=== PATIENT | female | born 1965 | race Caucasian/White ===

== ENCOUNTER 2023-04-19 19:09 | Emergency (ER) | payer SELFPAY ==
[2023-04-19 19:11] VITALS: BP 0/0; PULSE 0; RESP 0; TEMP -17.7; TEMP 0; O2SAT 0
== END 2023-04-19 19:12 | disposition left against medical advice (07) ==
LOC: ER 19:11
PROVIDERS: Emergency Provider Emergency Medicine; PCP Nurse Practitioner Family
DX: I49.9 Cardiac arrhythmia, unspecified (principal)

== ENCOUNTER → 2023-07-19 16:36 | Outpatient (CLI) | payer BC, SELFPAY ==
[2023-07-19 17:52] LABS: Free T4 (Free Thyroxine) 0.59 ng/dl (0.78-2.19)
== END ==
PROVIDERS: PCP Nurse Practitioner Family; Visit Provider Otolaryngology
DX: E03.9 Hypothyroidism, unspecified (principal)
CPT/HCPCS: 36415; 84439; 84443

== ENCOUNTER → 2023-08-31 10:40 | Outpatient (CLI) | payer BC, SELFPAY ==
--- NOTE | 2023-08-31 10:41 | US_ITS ---
FINAL REPORT CLINICAL HISTORY: Hypothyroid COMPARISON: None FINDINGS: THYROID ULTRASOUND: The right lobe of the thyroid gland measures 4.4 x 0.8 x 0.6 cm in size. The left lobe of the thyroid gland measures 4.1 x 0.6 x 1 cm in size. Both lobes of the thyroid gland are somewhat small, and also revealed decreased vascularity. This is a nonspecific finding but can be seen with hypothyroidism. No focal masses or nodules are identified. IMPRESSION: Both lobes of thyroid are somewhat small, with decreased vascularity, nonspecific but can be seen with hypothyroidism. No focal nodules or masses are seen. Reviewed, Interpreted and Dictated by Kj Armstrong III, MD Transcribed by Claudia Concepcion Authenticated and . [facility]
[2023-08-31 13:05] LABS: Free T4 (Free Thyroxine) 1.02 ng/dl (0.78-2.19)
[2023-08-31 13:14] LABS: Thyroid Stimulating Hormone 0.67 uIU/mL (0.465-4.68)
== END ==
PROVIDERS: PCP Nurse Practitioner Family; Visit Provider Nurse Practitioner
DX: E03.9 Hypothyroidism, unspecified (principal)
CPT/HCPCS: 36415; 76536; 84439; 84443

== ENCOUNTER 2025-08-01 12:52 | Outpatient (CLI) | payer BC, SELFPAY ==
--- OUTSIDE RECORDS SUMMARY | 2025-07-24 14:21 | XMS_ITS | Clinical Summary ---
Author Organization [facility] Address [address] [place] [id number] Phone Care Team Providers Care Dietetics Director Name Role Phone Tomy Staley Katya Primary Care Provider [phone] Allergies Active Allergy Reactions Criticality Noted Date Comments Hydrocodone Shortness Of Breath 09/17/2017 Cephalexin Diarrhea 09/17/2017 Surgical History Surgery Date Site/Laterality Comments SECTION Medical History Medical History Date Comments Thyroid disease Fibromyalgia Social History Tobacco Use Types Packs/Day Years Used Date Smoking Tobacco: Never Assessed Alcohol Use Standard Drinks/Week Comments Yes 0 (1 standard drink = 0.6 oz pur e alcohol) socially Comments Unknown Sex and Gender Information Value Date Recorded Sex Assigned at Not on file Legal Sex Female 8:35 PM EST Gender Identity Not on file Sexual Orientation Not on file Obstetrics History Last Filed Vital Signs Vital Sign Reading Time Taken Comments Blood Pressure 156/96 09/17/2017 8:39 PM EST Pulse 78 09/17/2017 8:39 PM EST Temperature 36.1 C (97 F) 09/17/2017 8:39 PM EST Respiratory Rate 16 09/17/2017 8:39 PM EST Oxygen Saturation 98% 09/17/2017 9:40 PM EST Inhaled Oxygen Concentration - - Weight 128.9 kg (284 lb 3.2 oz) 09/17/2017 8:39 PM EST Height 165.1 cm (5' 5 ) 09/17/2017 8:39 PM EST Body Mass Index 47.29 09/17/2017 8:39 PM EST Plan of Treatment Health Maintenance Due Date Last Done Comments Annual Wellness Exam 1970 DTaP/TDaP/Td (1 - Tdap) 1986 Hepatitis B Vaccine (1 of 3 - 19+ 3-dose series) 1986 Cervical Cancer Screening 1988 Pap Smear 1988 HPV/Pap Cotest 1997 Breast Cancer Screening 2007 Cologuard 2012 Colon Cancer Screening 2012 Colonoscopy 2012 FIT 2012 Sigmoidoscopy 2012 Virtual Colonography 2012 Pneumococcal Vaccine 50+ (1 of 1 - PCV) 2017 Zoster (1 of 2) 2017 COVID-19 Vaccine (1 - 2023-2 5 season) 2025 Influenza Vaccine (#1) 2025 Meningococcal B Vaccine Aged Out No l onger eligible based on patient's age to complete this topic Insurance [id number] [facility] [place] [id number] [facility] PPO [facility] PPO [employer] GENERIC Care Teams Dietetics Director Relationship Specialty Start Date End Date Tomy Staley [address] [place] [id number] PCP - General Family Medicine 09/17/17
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
--- OUTSIDE RECORDS SUMMARY | 2025-08-01 12:54 | XMS_ITS | Continuity of Care Document ---
Author Organization [place] [facility] Address [address] [place] [address] Care Team Providers Care Meter Calibrator Name Role Phone MYRIAMTHAIS VIEYRA KEVIN Primary Care Provider ANTOINETTE HALL Referring Provider [phone] TAMERA DUARTE Referring Provider Assessment No assessment recorded. Plan of Treatment Reminders Order Date Submit Date Provider Last Modified By Organization Details Last Modified Time Details Appointments Establish ed Patient 20 2024 08:40A M Bindu Pozo, BENJAMIN Not available Not available Not available Lab CBC w/ auto diff 2024 025 [place] [facility], [address], [place], [place], [address], 06/21/2025 08:10:22 Referral None recorded. Procedures None recorded. Surgeries None recorded. Imaging None recorded. Medication Orders None recorded. Patient TargetsNo targets recorded. Patient InstructionsNo instructions recorded. Reason for Referral None Reported. Results Created Date Observation Date Name Description Value Unit Range Abnormal Flag Note LastModifiedBy Organization Detail LastModifiedTime 06/20/2006/21/2025 CBC WITH DIFFE RENTI AL/PL ATELE T WBC 5.3 x10e3 /uL 3.4-10 .8 normal Not Available [facility] ([facility]) [address] [facility], [place], [address], 06/21/2025 08:10:22 06/20/20 25 06/21/2025 CBC WITH DIFFE RENTI AL/PL ATELE T RBC 5.13 x10e6 /uL 3.77-5 .28 normal Not Available [facility] ([facility]) [address] [place], [address], 06/21/2025 08:10:22 06/20/20 25 06/21/2025 CBC WITH DIFFE RENTI AL/PL ATELE T hemoglobin 15.1 g/dL 11.1-1 5.9 normal Not Available [facility] ([facility]) [address] [place], [address], 06/21/2025 08:10:22 06/20/20 25 06/21/2025 CBC WITH DIFFE RENTI AL/PL ATELE T hematocrit 47.0 % 34.0-4 6.6 above high normal Not Available [facility] ([facility]) [address] [place], [address], 06/21/2025 08:10:22 06/20/20 25 06/21/2025 CBC WITH DIFFE RENTI AL/PL ATELE T MCV 92 fL 79-97 normal Not Available [facility] ([facility]) [address] [place], [address], 06/21/2025 08:10:22 06/20/20 25 06/21/2025 CBC WITH DIFFE RENTI AL/PL ATELE T MCH 29.4 pg 26.6-3 3.0 normal Not Available [facility] ([facility]) [address] [place], [address], 06/21/2025 08:10:22 06/20/20 25 06/21/2025 CBC WITH DIFFE RENTI AL/PL ATELE T MCHC 32.1 g/dL 31.5-3 5.7 normal Not Available [facility] ([facility]) [address] [place], [address], 06/21/2025 08:10:22 06/20/20 25 06/21/2025 CBC WITH DIFFE RENTI AL/PL ATELE T RDW 13.9 % 11.7-1 5.4 Not Available [facility] ([facility]) [address] [facility], [place], [address], 06/21/2025 08:10:22 06/20/20 25 06/21/2025 CBC WITH DIFFE RENTI AL/PL ATELE T platelets 209 x10e3 /uL 150-45 0 normal Not Available [facility] ([facility]) [address] [facility], [place], [address], 06/21/2025 08:10:22 06/20/20 25 06/21/2025 CBC WITH DIFFE RENTI AL/PL ATELE T neutrophils 78 % not estab. normal Not Available [facility] ([facility]) [address] [facility], [place], [address], 06/21/2025 08:10:22 06/20/20 25 06/21/2025 CBC WITH DIFFE RENTI AL/PL ATELE T lymphs 13 % not estab. normal Not Available [facility] ([facility]) [address] [facility], [place], [address], 06/21/2025 08:10:22 06/20/20 25 06/21/2025 CBC WITH DIFFE RENTI AL/PL ATELE T monocytes 6 % not estab. normal Not Available [facility] ([facility]) [address] [facility], [place], [address], 06/21/2025 08:10:22 06/20/20 25 06/21/2025 CBC WITH DIFFE RENTI AL/PL ATELE T eos 2 % not estab. normal Not Available [facility] ([facility]) [address] [facility], [place], [address], 06/21/2025 08:10:22 06/20/20 25 06/21/2025 CBC WITH DIFFE RENTI AL/PL ATELE T basos 1 % not estab. normal Not Available [facility] ([facility]) [address] [facility], [place], [address], 06/21/2025 08:10:22 06/20/20 25 06/21/2025 CBC WITH DIFFE RENTI AL/PL ATELE T immature cells [employer] Not Available [facility] ([facility]) [address] [facility], [place], [address], 06/21/2025 08:10:22 06/20/20 25 06/21/2025 CBC WITH DIFFE RENTI AL/PL ATELE T neutrophils (absolute) 4.2 x10e3 /uL 1.4-7. 0 normal Not Available [facility] ([facility]) [address] [facility], [place], [address], 06/21/2025 08:10:22 06/20/20 25 06/21/2025 CBC WITH DIFFE RENTI AL/PL ATELE T lymphs (absolute) 0.7 x10e3 /uL 0.7-3. 1 normal Not Available [facility] ([facility]) [address] [place], [address], 06/21/2025 08:10:22 06/20/20 25 06/21/2025 CBC WITH DIFFE RENTI AL/PL ATELE T monocytes(ab solute) 0.3 x10e3 /uL 0.1-0. 9 normal Not Available [facility] ([facility]) [address] [place], [address], 06/21/2025 08:10:22 06/20/20 25 06/21/2025 CBC WITH DIFFE RENTI AL/PL ATELE T eos (absolute) 0.1 x10e3 /uL 0.0-0. 4 normal Not Available [facility] ([facility]) [address] [place], [address], 06/21/2025 08:10:22 06/20/20 25 06/21/2025 CBC WITH DIFFE RENTI AL/PL ATELE T baso (absolute) 0.0 x10e3 /uL 0.0-0. 2 normal Not Available [facility] ([facility]) [address] [facility], [place], [address], 06/21/2025 08:10:22 06/20/20 25 06/21/2025 CBC WITH DIFFE RENTI AL/PL ATELE T immature granulocytes 0 % not estab. Not Available [facility] ([facility]) [address] [facility], [place], [address], 06/21/2025 08:10:22 06/20/20 25 06/21/2025 CBC WITH DIFFE RENTI AL/PL ATELE T immature grans (abs) 0.0 x10e3 /uL 0.0-0. 1 Not Available [facility] ([facility]) [address] [facility], [place], [address], 06/21/2025 08:10:22 06/20/20 25 06/21/2025 CBC WITH DIFFE RENTI AL/PL ATELE T NRBC [employer] Not Available [facility] ([facility]) [address] [facility], [place], [address], 06/21/2025 08:10:22 06/20/20 25 06/21/2025 CBC WITH DIFFE RENTI AL/PL ATELE T hematology comments: [employer] Not Available [facility] ([facility]) [address] [place], [address], 06/21/2025 08:10:22 Result Notes None recorded. Problems Name Problem SNOMED Code Status Onset Date Resolution Date Notes Provider Name and Address Organization Details Recorded Time Hyperlipi demia 59335181 Active Maribel Sorto null, [place] - [facility] 3 16:18:08 Mass of left ovary 734082172122 47496 Active Maribel Sorto null, [place] - [facility] 3 16:18:08 Bradycard ia 81864220 Active Maribel Sorto null, [place] - [facility] 3 16:18:08 Fatigue 18352576 Active Maribel monae, [place] - [facility] 3 16:18:09 Hypothyro idism 97534110 Active 2015 Maribel monae, [place] - [facility] 3 16:18:08 Fibromyal lottie 178986485 Active 2015 Maribel monae, [place] - [facility] 3 16:18:08 Colitis 28976745 Active 2015 Maribel monae, [place] - [facility] 3 16:18:09 Chronic back pain 381699171 Active 2015 Maribel monae, [place] - [facility] 3 16:18:08 Pain of hip region 87364919 Active 2015 Maribel monae, [place] - [facility] 3 16:18:08 Pelvic mass 53019014 Active 2017 Maribel monae, [place] - [facility] 3 16:18:09 Granuloma annulare 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 2019 Maribel monae, [place] - [facility] 3 16:18:09 Herpes simplex 40022201 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 per culture GRAEME Jacobson - [facility] 3 16:18:09 Acquired hypothyro idism 499906547 Active 2020 GRAEME Jacobson - [facility] 3 16:18:08 Vitamin D deficienc y 91686953 Active 2020 Maribel monae, [place] - [facility] 3 16:18:08 Mixed hyperlipi demia 466706355 Active 2020 Maribel monae, [place] - [facility] 3 16:18:08 Gastroeso phageal reflux disease without esophagit is 553573354 Active 2020 GRAEME Jacobson - [facility] 3 16:18:08 History of bariatric surgical procedure 696390532 Active 2022 GRAEME Jacobson - [facility] 3 16:18:09 Problem Notes None recorded. Procedures Surgical History Date Name Laterality Status Provider Name and Address Organization Details Recorded Time 024 Date of Last Mammogram completed Smita Boswell [place] - [facility] 08/01/2025 08:47:51 023 Medication Reconcilliation completed Maribel Sorto [place] - [facility] 04/26/2023 16:16:53 021 Date of Last Colonoscopy completed Kay lUloa RN [address], [place], [address], [place] - [facility] 02/27/2021 11:38:04 021 Diastolic B/P 80-89 mm Hg completed Mally Garcia [place] - [facility] 12/24/2020 13:04:11 021 Systolic B/P 130-139 mm Hg completed Mally Garcia [place] - [facility] 12/24/2020 13:04:05 021 Diastolic B/P 80-89 mm Hg completed Gretchen Chery APRN [address], [place], [address], [place] - [facility] 11/04/2020 11:37:37 021 Systolic B/P 130-139 mm Hg completed Gretchen Chery APRN [address], [place], [address], [place] - [facility] 11/04/2020 11:37:32 021 Date of Last Pap Smear completed Gretchen Chery APRN [address], [place], [address], [place] - [facility] 11/07/2020 08:23:07 020 Systolic B/P less than 130 mm Hg completed Mally Garcia [place] - [facility] 09/03/2020 17:53:00 020 Diastolic B/P less than 80 mm Hg completed Mally Garcia [place] - [facility] 09/03/2020 17:52:56 020 Systolic B/P less than 130 mm Hg completed Mally Garcia [place] [facility] 06/04/2020 14:48:51 020 Diastolic B/P less than 80 mm Hg completed Mally Garcia [place] [facility] 06/04/2020 14:48:49 018 Diagnostic Laparoscopy completed Elena Castro [place] - [facility] 03/08/2018 13:43:58 018 Salpingo-oophorecto my, Left completed Elena BEDOLLA - [facility] 03/08/2018 13:44:06 996 delivery only completed Amanda BEDLOLA [facility] 11/04/2020 09:15:51 988 Caesarean Section completed Amanda [facility] 11/04/2020 09:15:38 Tubal Ligation completed Amanda BEDOLLA [facility] 11/04/2020 09:14:53 Dilation and Curettage, sharp completed Smita Abramss [place] - [facility] 01/04/2018 12:55:06 Endoscopy completed Smita Abramss [place] - [facility] 01/04/2018 12:55:21 Bartholin Gland Marsupialization completed Smita [place] - [facility] 01/04/2018 12:55:30 Colonoscopy completed Elena BEDOLLA [facility] 01/04/2018 13:56:42 Imaging Results None recorded. Procedure Notes None recorded. Medical Equipment None Reported. Allergies Allergen ID Allergen Name Allergen Category Reaction Reaction Severity Criticality Documentation Date Start Date Code Code System Note Provider Name and Address Organization Details Recorded Time 480821 acetamino phen medicatio n Not available Not available Not available 02/27/20212020 161 RxNorm unkno wn Mally [place] null[place] - [facility] 15:57:19 345715 cephalexi n medicatio n rash mild Not available 02/27/20212022 2231 RxNorm Maribel Sorto [place] - [facility] 3 16:17:50 421625 oxycodone medicatio n Not available Not available Not available 02/27/20212022 7804 RxNorm Maribel Sort[place] - [facility] 3 16:17:50 887653 hydrocodo ne Not available Not available Not available Not available 04/26/20232022 5489 RxNorm Maribel [place] - [facility] 3 16:17:50 611665 propofol medicatio n Not available Not available Not available 04/26/20233 8782 RxNorm Maribel Sorto null, [place] - [facility] 3 16:17:50 96066 Keflex medicatio n Not available Not available Not available 08/06/2016200816 7 RxNorm React ion: rash, diarr hea; Not Available [facility] 6 09:12:29 20676 acetamino phen / oxycodone medicatio n Not available Not available Not available 08/06/2016201318 3 RxNorm React ion: incre ase in B/P diffi culty breat elizabeth; Comme nt: OnSet Date: 04/19 00; Not Available [facility] 6 09:31:51 16426 homatropi ne / hydrocodo ne medicatio n respirato ry distress Not available Not available 08/06/20162014 51507 4 RxNorm Not Available [facility] 6 10:03:41 07564 acetamino phen / hydrocodo ne medicatio n respirato ry distress Not available Not available 08/06/2016201418 2 RxNorm Not Available [facility] 6 10:03:41 Medications Name Sig Start Date Stop Date Status Note LastModified by Organization Details LastModified Time Prescript ion - Change active Not Available Not Available Not Available cyclobenz aprine 10 mg tablet Take 1 tablet 3 times a day by oral route. 10/20 completed Not Available Not Available Not Available amoxicill in 500 mg capsule TAKE ONE (1) CAPSULE TWICE A DAY BY ORAL ROUTE FOR 10 DAYS. 04/19 completed Not Available Not Available Not Available [place] Thyroid 60 mg tablet TAKE ONE (1) TABLET BY ORAL ROUTE DAILY FOR 30 DAYS 02/01 completed Not Available Not Available Not Available levothyro xine 137 mcg tablet 0.137 mg by oral route. 02/23 completed Not Available Not Available Not Available [place] Thyroid 90 mg tablet TAKE ONE (1) TABLET BY ORAL ROUTE DAILY FOR 30 DAYS 12/09 completed Not Available Not Available Not Available loperamid e 2 mg capsule take 2 capsules (4 mg) by oral route after 1st loose stool, followed by 1 capsule after each subseque nt loose stool not to exceed 16 mg/day 10/20 completed loperami de 2 mg oral capsule; Recorded Status: Recorded on: 08/20/20 15 1:12PM;U ser: [email or web address] Not Available Not Available Not Available azithromy mak 250 mg tablet TAKE TWO (2) TABLETS (500 MG) BY ORAL ROUTE ONCE DAILY FOR ONE (1) DAY THEN ONE (1) TABLET (250 MG) BY ORAL ROUTE ONCE DAILY FOR FOUR (4) DAYS 12/09 completed Not Available Not Available Not Available ibuprofen 800 mg tablet 09/16 completed Not Available Not Available Not Available valacyclo vir 1 gram tablet Take 1 tablet every 12 hours by oral route for 10 days. 06/02 completed Not Available Not Available Not Available Lotrisone 1 %-0.05 % topical cream apply to the affected and surround ing areas of skin by topical route 2 times per day in the morning and evening for 14 days 01/10 completed Lotrison e 1-0.05 % topical cream;Re corded Status: Recorded on: 11/10/19 13 4:18PM;D iscontin ued Status: Disconti nued on: 01/11/20 13 2:40PM;U ser: [email or web address] ;Est. Adairi on: 02/03/20 13;Print ed: 11/10/19 13 Not Available Not Available Not Available prednison e 20 mg tablet take 2 tablets (40 mg) by oral route once daily for 5 days 09/02 completed Not Available Not Available Not Available Synthroid 100 mcg tablet TAKE ONE (1) TABLET EVERY DAY BY ORAL ROUTE. active Not Available Not Available No t Available [place] Thyroid 120 mg tablet TAKE ONE (1) TABLET BY MOUTH EVERY DAY 11/19 completed Not Available Not Available Not Available Wellbutri n SR 150 mg tablet, 12 hr sustained -release take 1 tablet (150 mg) by oral route 2 times per day for 30 days 01/10 completed Wellbutr in SR 150 mg oral tablet extended release; Recorded Status: Recorded on: 12/21/19 13 9:56AM;D iscontin ued Status: Disconti nued on: 01/11/20 13 2:40PM;U ser: [email or web address];E st. Completi on: 06/19/20 13;Indic ation: Tobacco Addictio n - (305.1); Printed: 12/21/19 13 Not Available Not Available Not Available phentermi ne 37.5 mg tablet Take 1 tablet every day by oral route. 2024 active Not Available Not Available Not Avai lable acetamino phen 300 mg-codein e 30 mg tablet 09/16 completed Not Available Not Available Not Available sulfameth oxazole 800 mg-trimet hoprim 160 mg tablet take 1 tablet by oral route every 12 hours for 7 days 09/02 completed Not Available Not Available Not Available omeprazol e 40 mg capsule,d elayed release take 1 capsule by oral route daily for 90 days 09/03 completed Not Available Not Available Not Available tramadol 50 mg tablet 50 mg by oral route. 02/23 completed Not Available Not Available Not Available Cytomel 5 mcg tablet take 2 tablets (10 mcg) by oral route once daily for 30 days 09/17 completed Cytomel 5 mcg oral tablet;P rescribe Status: Prescrib ed on: 06/12/20 14 4:44PM;D iscontin ued Status: Disconti nued on: 09/17/20 14 12:26PM; User: otilia Cardona Completpatricia on: 12/09/19 15;Pharm acyVjackeline ied: 06/12/20 14 4:44PM Not Available Not Available Not Available amoxicill in 500 mg tablet take 4 tablets (2 gram) by oral route 1 hour prior to procedur e 02/10 completed amoxicil rosio 500 mg oral tablet;P rescribe Status: Prescrib ed on: 12/16/19 16 11:32AM; Disconti nued Status: Disconti nued on: 02/11/20 16 1:02PM;U ser: [email or web address]; Pharmacy Verified : 12/16/19 16 11:32AM Not Available Not Available Not Available acyclovir 800 mg tablet 06/21 completed Not Available Not Available Not Available calcium 315 mg (as citrate)- ergocalci ferol (vit D2) 200 unit tablet 04/02 /2024 completed Not Available Not Available Not Available meloxicam 7.5 mg tablet Take 1 tablet every day by oral route. 10/20 completed Not Available Not Available Not Available IBU 600 mg tablet 03/20 completed Not Available Not Available Not Available Silvadene 1 % topical cream apply a 1/16 inch (1.5 mm) thick layer to entire burn area by topical route 2 times per day for 14 days 08/20 completed Silvaden e 1 % topical cream;Pr escribe Status: Prescrib ed on: 04/30/20 15 3:02PM;D iscontin ued Status: Disconti nued on: 08/20/20 15 1:12PM;U ser: [email or web address]; Est. Completi on: 05/14/20 15;Indic ation: Burn Wound Infectio ns - (17.9583 01);Verenice Méndez fied: 04/30/20 15 3:02PM Not Available Not Available Not Available dicyclomi ne 20 mg tablet bid 09/14 completed Not Available Not Available Not Available benzonata te 100 mg capsule Take 1 capsule 3 times a day by oral route as needed. 12/01 completed Not Available Not Available Not Available pantopraz ole 40 mg tablet,de layed release 10/20 completed Not Available Not Available Not Available oseltamiv ir 75 mg capsule Take 1 capsule every day by oral route. 11/24 completed Not Available Not Available Not Available Prozac 20 mg capsule take 1 capsule (20 mg) by oral route once daily for 30 days 08/09 completed Prozac 20 mg oral capsule; Recorded Status: Recorded on: 05/18/20 12 3:59PM;D iscontin ued Status: Disconti nued on: 08/09/20 12 3:41PM;U ser: grossert ;Est. Completi on: 11/14/19 13;Indic ation: Symptoma tic [place] - (627.2); Printed: 05/18/20 12 Not Available Not Available Not Available levothyro xine 125 mcg tablet take 1 tablet (125 mcg) by oral route once daily for 30 days 10/14 completed levothyr oxine 125 mcg oral tablet;P rescribe Status: Prescrib ed on: 08/25/20 15 5:33PM;D iscontin ued Status: Disconti nued on: 10/14/20 15 1:34PM;U ser: [email or web address]; Est. Completi on: 11/23/19 16;Pharm acyVjackeline ied: 08/25/20 15 5:33PM Not Available Not Available Not Available levothyro xine 150 mcg tablet take 1 tablet (150 mcg) by oral route once daily for 30 days 09/02 completed Not Available Not Available Not Available nitroglyc amy 0.4 mg sublingua l tablet Place 1 tablet as needed by sublingu al route. 12/09 completed Not Available Not Available Not Available gabapenti n 300 mg capsule TAKE ONE CAPSULE BY MOUTH THREE TIMES A DAY 11/18 completed Not Available Not Available Not Available omeprazol e 20 mg capsule,d elayed release 20 mg by oral route. 04/20 completed Not Available Not Available Not Available diclofena c sodium 75 mg tablet,de layed release take 1 tablet (75 mg) by oral route 2 times per day for 30 days 06/02 completed Not Available Not Available Not Available levothyro xine 200 mcg tablet TAKE 1 TABLET BY MOUTH EVERY DAY 09/16 completed Not Available Not Available Not Available hydrochlo rothiazid e 25 mg tablet Take 1 tablet every day by oral route. 12/21 completed Not Available Not Available Not Available thyroid 120 mg tablet Take 90 mg by oral route. 04/26 completed Not Available Not Available Not Available John Thyroid 30 mg tablet TAKE ONE (1) TABLET EVERY DAY BY ORAL ROUTE. 08/09 completed Not Available Not Available Not Available gabapenti n 100 mg capsule 100 mg by oral route. 02/23 completed Not Available Not Available Not Available clobetaso l 0.05 % topical ointment APPLY TO AFFECTED AREA A THIN LAYER TWICE DAILY FOR 14 DAYS 09/16 completed Not Available Not Available Not Available lotepredn ol etabonate 0.5 % eye drops,lissa penon 01/04 completed Not Available Not Available Not Available methylpre dnisolone 4 mg tablets in a dose pack take as directed for 10 days 12/01 completed Not Available Not Available Not Available albuterol sulfate HFA 90 mcg/actua tion aerosol inhaler inhale 2 puffs by inhalati on route every 4 hours as needed 09/16 completed Not Available Not Available Not Available Vitamin D2 1,250 mcg (50,000 unit) capsule Take 1 capsule every day by oral route. 12/09 completed Not Available Not Available Not Available celecoxib 100 mg capsule 11/18 completed Not Available Not Available Not Available ondansetr on 4 mg disintegr ating tablet PLACE ONE (1) TABLET ON TOP OF THE TOUNGE EVERY 4-6 HOURS FOR 10 DAYS 12/09 completed Not Available Not Available Not Available topiramat e 100 mg tablet TAKE ONE (1) TABLET BY MOUTH TWICE DAILY active Not Available Not Available No t Available dexametha sone sodium phosphate 10 mg/mL injection solution Take 10 mg by injectio n route. 12/09 completed Not Available Not Available Not Available fluticaso ne propionat e 50 mcg/actua tion nasal spray,lissa pension INSTILL ONE (1) SPRAY IN EACH NOSTRIL DAILY 12/09 completed Not Available Not Available Not Available naproxen 500 mg tablet Take 1 tablet twice a day by oral route. 10/20 completed Not Available Not Available Not Available amoxicill in 875 mg-potass ium clavulana te 125 mg tablet take 1 tablet by oral route every 12 hours for 10 days 09/02 completed Not Available Not Available Not Available neomycin- polymyxin -hydrocor t 3.5 mg-10,000 unit/mL-1 % ear drops,lissa p INSTILL 4 DROPS INTO AFFECTED EAR(S) BY OTIC ROUTE 3 TIMES PER DAY 10/07 completed Not Available Not Available Not Available Adult Low Dose Aspirin 81 mg tablet,de layed release Take 1 tablet every day by oral route. 12/09 completed Not Available Not Available Not Available moxifloxa mak 0.5 % eye drops 01/04 completed Not Available Not Available Not Available Premarin 0.625 mg/gram vaginal cream INSERT 0.25 APPLICAT ORFUL VAGINALL Y TWICE WEEKLY AT BEDTIME 09/16 completed Not Available Not Available Not Available Ciprodex 0.3 %-0.1 % ear drops,lissa najera instill 4 drops into right ear by otic route every 12 hours for 7 days 03/14 completed Not Available Not Available Not Available rosuvasta tin 5 mg tablet Take 5 mg by oral route. 12/09 completed Not Available Not Available Not Available rosuvasta tin 10 mg tablet Take 1 tablet every day by oral route as directed for 30 days. 08/01 completed she never started it Not Available Not Available Not Available Wellbutri n XL 300 mg 24 hr tablet, extended release take 1/2 tablet daily for one week, then increase to 1 tablet (300 mg) by oral route once daily 08/14 completed Wellbutr in XL 300 mg oral tablet extended release 24 hr;comme nt: pt couldn't afford it;[facility] ribe Status: Prescrib ed on: 08/01/20 13 2:36PM;D iscontin ued Status: Disconti nued on: 08/14/20 13 5:38PM;U ser: [email or web address]; Est. Completi on: 01/29/20 14;Indic ation: Major Depressi ve Disorder - (05.2962 00);Verenice Méndez fied: 08/01/20 13 2:36PM Not Available Not Available Not Available topiramat e 50 mg tablet take 1 tablet by oral route 2 times a day 08/13 completed topirama te 50 mg oral tablet;R ecorded Status: Recorded on: 03/25/20 11 6:04PM;D iscontin ued Status: Disconti nued on: 08/13/20 11 3:32PM;U ser: [email or web address] Not Available Not Available Not Available Zantac once daily 03/05 completed zantac;c omment: medicati on changed; Recorded Status: Recorded on: 12/24/19 15 12:52PM; Disconti nued Status: Disconti nued on: 03/05/20 15 10:17AM; User: [email or web address]; Indicati on: - (-5) Not Available Not Available Not Available Tylenol as needed 09/16 completed Not Available Not Available Not Available multivita min 1 daily active Not Available Not Available Not Available cholecalc iferol (vitamin D3) 25 mcg (1,000 unit) tablet 04/20 completed Not Available Not Available Not Available Savella 50 mg tablet take 1 tablet (50 mg) by oral route 2 times per day for 30 days 09/11 completed Savella 50 mg oral tablet;P rescribe Status: Prescrib ed on: 06/12/20 14 4:44PM;D iscontin ued Status: Disconti nued on: 09/11/20 14 4:21PM;U ser: [email or web address]; Est. Completi on: 12/09/19 15;Indic ation: Fibromya lgia - (13.7291 02);Phar Nikolaieri fied: 06/12/20 14 4:44PM Not Available Not Available Not Available levothyro xine 137 mcg capsule Take 1 capsule every day by oral route. 10/20 completed Not Available Not Available Not Available Dexilant 60 mg capsule, delayed release Take 1 capsule every day by oral route for 90 days. 10/07 completed Not Available Not Available Not Available Suprep Bowel Prep Kit 17.5 gram-3.13 gram-1.6 gram oral solution 09/16 completed Not Available Not Available Not Available antipyrin e-benzoca ine 5.5 %-1.4 % ear drops instill into right ear by otic route 3 times per day as needed, enough drops to fill ear canal 08/14 completed antipyri ne-benzo narda 5.5-1.4 % otic drops;Pr escribe Status: Prescrib ed on: 08/02/20 13 4:01PM;D iscontin ued Status: Disconti nued on: 08/14/20 13 5:35PM;U ser: strouba; Indicati on: Right Otitis Externa, Acute - (380.22) ;Pharmac yVerifie d: 08/02/20 13 4:01PM Not Available Not Available Not Available lidocaine 5 % topical ointment APPLY TO AFFECTED AREA(S) BY TOPICAL ROUTE 1-4 TIMES DAILY NEEDED 06/02 completed Not Available Not Available Not Available topiramat e XR 100 mg capsule,e xtended release 24 hr 100 mg by oral route. 02/23 completed Not Available Not Available Not Available Contrave 8 mg-90 mg tablet,ex tended release Take 2 tablets twice a day by oral route for 30 days. 06/21 completed Not Available Not Available Not Available Trulicity 1.5 mg/0.5 mL subcutane ous pen injector 09/16 completed Not Available Not Available Not Available Trulicity 0.75 mg/0.5 mL subcutane ous pen injector Inject by subcutan eous route for 28 days. 09/16 completed Not Available Not Available Not Available Saxenda 3 mg/0.5 mL (18 mg/3 mL) subcutane ous pen injector Inject 3 mg every day by subcutan eous route. 12/01 completed Not Available Not Available Not Available Caltrate with Vitamin D3 400mg daily active Not Available Not Available No t Available Fiber Gummies 2 gram chewable tablet Take 1 tablet every day by oral route. active Not Available Not Available No t Available Durolane 60 mg/3 mL intra-art icular syringe 06/02 completed Not Available Not Available Not Available Rybelsus 3 mg tablet 12/09 completed Not Available Not Available Not Available Wegovy 0.25 mg/0.5 mL subcutane ous pen injector Inject 0.25 mg every week by subcutan eous route. active Not Available Not Available No t Available Wegovy 0.5 mg/0.5 mL subcutane ous pen injector Inject 0.5 mg every week by subcutan eous route. 2024 active Not Available Not Available Not Avai lable Mounjaro 5 mg/0.5 mL subcutane ous pen injector active Not Available Not Available Not Available Mounjaro 10 mg/0.5 mL subcutane ous pen injector 09/16 completed Not Available Not Available Not Available Mounjaro 2.5 mg/0.5 mL subcutane ous pen injector Inject 2.5 mg every week by subcutan eous route. 08/02 completed Not Available Not Available Not Available Zepbound 10 mg/0.5 mL subcutane ous pen injector Inject 10 mg every week by subcutan eous route. 11/02 completed Not Available Not Available Not Available Zepbound 5 mg/0.5 mL subcutane ous pen injector Inject 5 mg every week by subcutan eous route. 05/17 completed Not Available Not Available Not Available Zepbound 2.5 mg/0.5 mL subcutane ous pen injector INJECT 2.5MG EVERY WEEK BY SUBCUTAN EOUS ROUTE FOR 30 DAYS. 05/17 completed Not Available Not Available Not Available Zepbound 15 mg/0.5 mL subcutane ous pen injector INJECT 15MG EVERY WEEK BY SUBCUTAN EOUS ROUTE. 06/20 completed Not Available Not Available Not Available Zepbound 12.5 mg/0.5 mL subcutane ous pen injector INJECT 12.5 MG EVERY WEEK BY SUBCUTAN EOUS ROUTE. 11/02 completed Not Available Not Available Not Available Zepbound 7.5 mg/0.5 mL subcutane ous pen injector INJECT 7.5 MG EVERY WEEK BY SUBCUTAN EOUS ROUTE. 11/02 completed Not Available Not Available Not Available Vitals Date Recorded Body height Body mass index (BMI) Body weight Pain severity - 0-10 verbal numeric rating [Score] - Reported Heart rate Body temperature Oxygen saturation Oxygen saturation in Arterial blood by Pulse oximetry Respiratory rate Systolic And Diastolic Provider Name and Address Organization Details Last Updated DateTime 5 165.1 cm 32.8 kg/m2 38358.7 g 0 66 /min 98.1 [degF] 98 % 98 % 18 /min 122/78 mm[Hg] Maribel Sorto [place] - [facility] 09:12:52 Social History Question Answer Notes LastModified by Organizat ion Details LastModified Time Tobacco Smoking Status Former Smoker Not Available [facility] 08/15/2020 03:17:09 Able To Swim? Yes Information not available 09/02/2016 Do You Have An Advance Directive? No [id number] Information n ot available 08/15/2020 Do You Wear A Helmet When Biking? No [id number] Information not available 08/15/2020 Are You Blind Or Do You Have Difficulty Seeing? No [id number] Information n ot available 08/15/2020 Is Blood Transfusion Acceptable In An Emergency? Yes [id number] Information not available 08/15/2020 What Is Your Level Of Caffeine Consumption? Moderate [id number] Information not available 08/15/2020 How Much Tobacco Do You Chew? None [id number] Information not available 08/15/2020 In The 14 Days Before Symptom Onset, Have You Had Close Contact With A Laboratory-confirm ed COVID-19 While That Case Was Ill? No Information n ot available 06/20/2025 In The 14 Days Before Symptom Onset, Have You Had Close Contact With A Person Who Is Under Investigation For COVID-19 While That Person Was Ill? No Information not available 06/20/2025 Have You Been To An Area Known To Be High Risk For COVID-19? No Information not available 06/20/2025 Are You Deaf Or Do You Have Serious Difficulty Hearing? No [id number] Information not available 08/15/2020 What Type Of Diet Are You Following? REGULAR [id number] Information n ot available 08/15/2020 Which Illicit Or Recreational Drugs Have You Used? None [id number] Information not available 08/15/2020 Have You Processed Blood Or Body Fluids From An Ebola Virus Disease Patient Without Appropriate PPE? No Information not available 06/20/2025 Do You Reside In Or Have You Traveled To An Area Where Ebola Virus Transmission Is Active? No Information not available 06/20/2025 What Is The Highest Grade Or Level Of School You Have Completed Or The Highest Degree You Have Received? [id number] Information not available 11/04/2020 How Many Days Of Moderate To Strenuous Exercise, Like A Brisk Walk, Did You Do In The Last 7 Days? 0 Information not available 11/04/2020 On Those Days That You Engage In Moderate To Strenuous Exercise, How Many Minutes, On Average, Do You Exercise? 0 Information not available 11/04/2020 Swimming/diving Yes [email or web address] Informati on not available 12/09/2016 Have There Been Any Changes To Your Family Or Social Situation? No Information no t available 12/09/2023 How Hard Is It For You To Pay For The Very Basics Like Food, Housing, Medical Care, And Heating? [id number] [email or web address] Information not available 11/04/2020 What Is The Fluoride Status Of Your Home? Unknown Information not available 12/09/2023 When Did You Quit Smoking? 1-5yearssince lastcigarette [id number] Information not available 08/15/2020 Hard Of Hearing Or Deaf In One Or Both Ears? No Information not available 09/02/2016 Have You Recently Or Are You Planning To Travel To An Area With Zika Virus? No Information not available 06/20/2025 Legally Blind In One Or Both Eyes? No Information no t available 09/02/2016 Live Alone Or With Others? With Others Information not available 09/02/2016 Do You Have A Medical Power Of Plant Clerk? No Information not available 12/09/2023 What Was The Date Of Your Most Recent Tobacco Screening? 06/20/2025 Information not available 06/20/2025 How Many Children Do You Have? 2 [id number] Information not available 08/15/2020 Performs Monthly Self-breast Exam? No [email or web address] Information no t available 01/04/2018 Do You Use Protection During Sex? No [id number] Information not available 08/15/2020 What Is Your Relationship Status? [id number] Information not available 08/15/2020 Seat Belts Used Routinely Yes Information not available 09/02/2016 Are You Sexually Active? Yes [id number] Information not available 08/15/2020 Smoke Alarm In Home Yes Information not available 09/02/2016 Do You Have Smoke And Carbon Monoxide Detectors In Your Home? Yes Information not available 12/09/2023 At What Age Did You Start Smoking Tobacco? 23 [id number] Information not available 08/15/2020 Are You Passively Exposed To Smoke? No Information no t available 09/02/2016 How Much Tobacco Do You Smoke? 0.5 PPD [id number] Information not available 08/15/2020 General Stress Level Low Information not available 09/02/2016 Do You Use Sunscreen Routinely? Yes [id number] Information not available 08/15/2020 Has Tobacco Cessation Counseling Been Provided? No [id number] Information not available 08/15/2020 How Many Years Have You Smoked Tobacco? 25 [id number] Information not available 08/15/2020 Do You Have Difficulty Walking Or Climbing Stairs? Yes [id number] Information not available 08/15/2020 Sex: Female Functional Status Question Answer Note LastModified by [employer] ion Details LastModified Time Do you use any illicit or recreational drugs? No Information not available 12/09/2023 What is your level of alcohol consumption? None [id number] Information not available 08/15/2020 Do you or have you ever used smokeless tobacco? Never used smokeless tobacco [id number] Information not available 08/15/2020 Are you currently employed? Yes [id number] Information not available 08/15/2020 Do you have transportation difficulties? No Information not available 12/09/2023 Are you able to walk independently without assistance or assistive devices? YESWOREST [id number] Information not available 08/15/2020 Do you have difficulty doing errands alone? No [id number] Information not available 08/15/2020 Are you able to care for yourself independently? Yes [id number] Information not available 08/15/2020 What is your occupation? [employer] Information not available 09/02/2016 Do you have difficulty dressing, bathing, grooming, or toileting? No [id number] Information not available 08/15/2020 Do you or have you ever used e-cigarettes or vape? Never used electronic cigarettes [id number] Information not available 08/15/2020 What is your exercise level? Occasional [id number] Information not available 08/15/2020 Mental Status Question Answer Note LastModified by [employer] ion Details LastModified Time Do you feel stressed (tense, restless, nervous, or anxious, or unable to sleep at night)? [email or web address] Information not available 11/04/2020 Do you have difficulty concentrating, remembering or making decisions? No [id number] Information no t available 08/15/2020 Family History Relationship Description Onset Age of this Age Resolved Age Notes LastModified by Organization Details LastModified Time Father Hypertensive disorder Not available 2015 16:23:44 Father Hypercholest erolemia Not available 2015 16:24:17 Father Heart disease [email or web address] Not available 2020 09:13:48 Maternal Grandmother Hypertensive disorder Not available 2015 16:23:56 Maternal Grandmother Cerebrovascu lar accident [email or web address] Not available 04/2018 13:54:40 Mother Pulmonary emphysema Not available 2015 16:24:31 Paternal Grandfather Cerebrovascu lar accident Not available 12/2015 16:24:46 Paternal Grandmother Myocardial infarction Not available 09/02 16:25:17 Paternal Uncle Malignant neoplasm of urinary bladder [email or web address] Not available 2017 13:55:02 Paternal Uncle Malignant neoplasm of pharynx [email or web address] Not available 2017 13:55:16 Medical History Condition Response Pancreatitis N Coronary Artery Disease N Other N Gout N Atrial Fibrillation N congenital heart disease N Blood Diseases N Kidney Stones N Hyperthyroidism N Blood Transfusion N Rheumatoid arthritis N Erectile Dysfunction N amputation N Skin Lesions N COPD N Depression N Pneumonia N Incontinence N Murmur N Edema N Alzheimer's Disease N Migraine Headaches N Tobacco Abuse N Anxiety Disorder N Hemorrhoids N Muscle, Joint, or Bone Problems N Obesity N Vision or Eye Problems N Arthritis N Restless Leg Syndrome N Polyps N Infertility N Mental Disorder N Carpal Tunnel N Acid Reflux (GERD) N Cancer N Varicosities N Stroke N Tendonitis N Crohn's Disease N Hypercholesterolemia N Skin Cancer N Headaches N Fibromyalgia Y Anal Fissure N Irritable Bowel Syndrome N Kidney Disease N Heart Problems N Ear or Hearing Problems N Hospitalizations N Gallstones N Kidney or Bladder Problems N Goiter N Acne N Skin Problems N Eating Disorder N Barillas's Esophagus N Hypertriglyceridemia N MRSA exposure N Constipation N Embolism N Vitamin B12 Deficiency N Deviated Septum N Tuberculosis N AIDS/HIV N Myocardial Infarction N Asthma N Mitral Valve Disorders N Vertigo N Hepatitis N Thyroid Cancer N Neuropathy N Pulmonary Embolism N History of DVT N Herniated Disc N Chronic Ear Infections N Chicken Pox N Autism Spectrum Disorder (ASD) N Von Willebrands Disease N Thrombophilias N Breast Cancer N Hernia N Plantar Fasciitis N Hospital Admission Other Than N Hypothyroidism Y Lung Disease N Defects or Inherited Disease N Developmental or Behavioral Disorders N Breast Problem N Difficulty Swallowing N Ovarian Cyst N Anesthesia Complications N Testosterone Deficiency N Meniere's disease N Head Injury/Concussion N Interstitial Cystitis N Congenital Anomalies N Hypoglycemia N Blood clot N Vitamin D Deficiency N Cellulitis N Endometriosis N Fracture N Bladder or Kidney Problems N Liver Disease N Panic Disorder N Schizophrenia N Concussion N Spina Bifida N Allergies/Hayfever N Osteoarthritis N Parkinson's Disease N Disc Protrusion N STI N Esophagitis N Angina N Thyroid Problems N GI Problems N ADD/ADHD N Anemia N Multiple Sclerosis N Abnormal PAP N Lumbago N Mental Illness N Psychiatric Illness N Diabetes N Ovarian Cancer N Bedwetting N Degenerative Disc Disease N Seizures/Epilepsy N Congestive Heart Failure (CHF) N Hyperlipidemia Y Syncope N Insomnia N Eczema N Abuse/Domestic Violence N Attention Deficient Disorder N Diverticulitis N Dementia N Ulcerative colitis N Cerebrovascular Disease N Depression N Guillain-Sumpter N Sleep Apnea N Aneurysm N Bronchitis N Heart Disease N Suicidal Ideation N Pre-Eclampsia N Hypertension N Osteoporosis N Gynecological History Statement/Question Response Date of Last Mammogram 09/06/2024 Date of LMP 02/13/2018 STIs/STDs N HPV Vaccine N Current Control Method Tubal Ligat ion Age at First Child 23 Last Annual Exam/Provider 11-04-2020/DEC Last Lipids 03-14-2019 If Post Menopausal, Age at Menopause 50 Date of Last Colonoscopy 02/25/2021 Sexually Active? Y Menses Monthly N Date of Last Pap Smear 11/04/2020 Sexual Problems? Y LMP Definite Hormone Replacement Therapy N Obstetrics History GPAL:G 3 P 2 0 1 2 Type Value Full Term 2 Spontaneous 1 Living 2 Total 3 Immunizations Vaccine Type Date Status Note Provider Name and Address Organization Details Recorded Time Pneumococcal conjugate PCV20, polysaccharide [id number] conjugate, adjuvant, PF 025 cancelled patient objection Bindu Pozo, SCANNING CLERK [address], [place], [address], [place] - [facility] 08/01/2025 09:31:21 zoster recombinant 025 cancelled patient objection Bindu Pozo, BENJAMIN [address], [place], [address], [place] - [facility] 08/01/2025 09:31:21 Influenza, split virus, trivalent, PF 025 cancelled patient objection Bindu Pozo, SCANNING CLERK [address], [place], [address], [place] - [facility] 08/01/2025 09:31:21 COVID-19, mRNA, LNP-S, PF, 100 mcg/0.5mL dose or 50 mcg/0.25mL dose 022 completed Not Available [facility] 04/20/2023 14:12:37 Td (adult), 2 Lf tetanus toxoid, preservative free, adsorbed 998 completed Not Available [facility] 04/20/2023 14:12:37 Tdap 016 completed Not Available [facility] 04/20/2023 14:12:37 COVID-19, mRNA, LNP-S, PF, 100 mcg/0.5mL dose or 50 mcg/0.25mL dose 021 completed Not Available [facility] 04/20/2023 14:12:37 COVID-19, mRNA, LNP-S, PF, 100 mcg/0.5mL dose or 50 mcg/0.25mL dose 021 completed Not Available [facility] 04/20/2023 14:12:37 COVID-19, mRNA, LNP-S, PF, 100 mcg/0.5mL dose or 50 mcg/0.25mL dose 021 completed Not Available [facility] 04/20/2023 14:12:37 Influenza, split virus, quadrivalent, PF 019 cancelled patient objection Not Available [facility] 11/17/2019 03:56:06 Past Encounters Encounter ID Performer Location Encounter Start Date Encounter Closed Date Diagnosis/Indication Diagnosis SNOMED-CT Code Diagnosis ICD10 Code Diagnosis IMO Codes Diagnosis Note [id number] Bindu Pozo APRN [address] [address] 06/20/2025 08:55:18 06/20/2025 09:40:34 History of bariatric surgical procedure 692911823 Z98.84 Full blood count outside reference range 016331661 R79.89 [id number] labs Health Concerns Section Related Observation LastModified by Organization Detai ls LastModified Time None Recorded Concern Status LastModified by Organization Details LastModified Time None Recorded Payers Encounter Date Sequence Insurance Name Policy Number Policy Brock Covered Member ID Brock Member ID Guarantor Name 06/20/2025 1 [place] [employer] [id number] Nelia Silva [id number] Nelia Silva Notes Date Note Type Note Provider Name and Address Organization Details Recorded Time 06/20/2025 text/html 60 yr old female presents for lab work, needs mbc rechecked. Bindu Pozo, SCANNING CLERK [address], [place], [address], [place] - [facility] 06/20/2025 09:37:02 OBGyn Episode No OBEpisode recorded.
--- OUTSIDE RECORDS SUMMARY | 2025-08-01 12:54 | XMS_ITS | Continuity of Care Document ---
Author Organization [facility] Address [address] [place] [address] Care Team Providers Care Mechanotherapist Name Role Phone THAIS MIGUEL KEVIN Primary Care Provider ANTOINETTE HALL Referring Provider TAMERA DUARTE Referring Provider [phone] Assessment No assessment recorded. Plan of Treatment Reminders Order Date Submit Date Provider Last Modified By Organization Details Last Modified Time Details Appointments Establish ed Patient 20 2024 08:40A M Bindu Pozo APRN Not available Not available Not available Lab None recorded. Referral None recorded. Procedures None recorded. Surgeries [...] /uL 3.4-10 .8 normal Not Available [facility] ([facility]) [address] [place], [address], 06/21/2025 08:10:22 06/20/2006/21/2025 CBC WITH DIFFE RENTI AL/PL ATELE T RBC 5.13 x10e6 /uL 3.77-5 .28 normal Not Available [facility] ([facility]) [address] [facility], [place], [address], 06/21/2025 08:10:22 06/20/20 25 06/21/2025 CBC WITH DIFFE RENTI AL/PL ATELE T hemoglobin 15.1 g/dL 11.1-1 5.9 normal Not Available [facility] ([facility]) [address] [place], [address], 06/21/2025 08:10:22 06/20/20 25 06/21/2025 CBC WITH DIFFE RENTI AL/PL ATELE T hematocrit 47.0 % 34.0-4 6.6 above high normal Not Available [facility] ([facility]) [address] [place], [address], 06/21/2025 08:10:22 06/20/20 25 06/21/2025 CBC WITH DIFFE RENTI AL/PL ATELE T MCV 92 fL 79-97 normal Not Available [facility] ([facility]) [address] [place], [address], 06/21/2025 08:10:22 06/20/20 25 06/21/2025 CBC WITH DIFFE RENTI AL/PL ATELE T MCH 29.4 pg 26.6-3 3.0 normal Not Available [facility] ([facility]) [address] [place], [address], 06/21/2025 08:10:22 06/20/20 25 06/21/2025 CBC WITH DIFFE RENTI AL/PL ATELE T MCHC 32.1 g/dL 31.5-3 5.7 normal Not Available [facility] ([facility]) [address] [place], [address], 06/21/2025 08:10:22 06/20/20 25 06/21/2025 CBC WITH DIFFE RENTI AL/PL ATELE T RDW 13.9 % 11.7-1 5.4 Not Available [facility] ([facility]) [address] [place], [address], 06/21/2025 08:10:22 06/20/20 25 06/21/2025 CBC WITH DIFFE RENTI AL/PL ATELE T platelets 209 x10e3 /uL 150-45 0 normal Not Available [facility] ([facility]) [address] [facility], [place], [address], 06/21/2025 08:10:22 06/20/20 25 06/21/2025 CBC WITH DIFFE RENTI AL/PL ATELE T neutrophils 78 % not estab. normal Not Available [facility] ([facility]) [address] [facility], [place], [address], 06/21/2025 08:10:22 06/20/20 25 06/21/2025 CBC WITH DIFFE RENTI AL/PL ATELE T lymphs 13 % not estab. normal Not Available [facility] ([facility]) [address] [facility], [place], [address], 06/21/2025 08:10:22 06/20/20 25 06/21/2025 CBC WITH DIFFE RENTI AL/PL ATELE T monocytes 6 % not estab. normal Not Available [facility] ([facility]) [address] [facility], [place], [address], 06/21/2025 08:10:22 06/20/20 25 06/21/2025 CBC WITH DIFFE RENTI AL/PL ATELE T eos 2 % not estab. normal Not Available [facility] ([facility]) [address] [facility], [place], [address], 06/21/2025 08:10:22 06/20/20 25 06/21/2025 CBC WITH DIFFE RENTI AL/PL ATELE T basos 1 % not estab. normal Not Available [facility] ([facility]) [address] [facility], [place], [address], 06/21/2025 08:10:22 06/20/20 25 06/21/2025 CBC WITH DIFFE RENTI AL/PL ATELE T immature cells POSTDOCTORAL SCHOLAR Not Available [facility] ([facility]) [address] [place], [address], 06/21/2025 08:10:22 06/20/20 25 06/21/2025 CBC WITH DIFFE RENTI AL/PL ATELE T neutrophils (absolute) 4.2 x10e3 /uL 1.4-7. 0 normal Not Available [facility] ([facility]) [address] [place], [address], 06/21/2025 08:10:22 06/20/20 25 06/21/2025 CBC WITH DIFFE RENTI AL/PL ATELE T lymphs (absolute) 0.7 x10e3 /uL 0.7-3. 1 normal Not Available [facility] ([facility]) [address] [place], [address], 06/21/2025 08:10:22 06/20/20 25 06/21/2025 CBC WITH DIFFE RENTI AL/PL ATELE T monocytes(ab solute) 0.3 x10e3 /uL 0.1-0. 9 normal Not Available [facility] ([facility]) [address] [place], [address], 06/21/2025 08:10:22 06/20/20 25 06/21/2025 CBC WITH DIFFE RENTI AL/PL ATELE T eos (absolute) 0.1 x10e3 /uL 0.0-0. 4 normal Not Available [facility] ([facility]) [address] [place], [address], 06/21/2025 08:10:22 06/20/20 25 06/21/2025 CBC WITH DIFFE RENTI AL/PL ATELE T baso (absolute) 0.0 x10e3 /uL 0.0-0. 2 normal Not Available [facility] ([facility]) [address] [place], [address], 06/21/2025 08:10:22 06/20/20 25 06/21/2025 CBC WITH DIFFE RENTI AL/PL ATELE T immature granulocytes 0 % not estab. Not Available [facility] ([facility]) [address] [facility], [place], [address], 06/21/2025 08:10:22 06/20/20 25 06/21/2025 CBC WITH DIFFE RENTI AL/PL ATELE T immature grans (abs) 0.0 x10e3 /uL 0.0-0. 1 Not Available [facility] ([facility]) [address] [facility], [place], [address], 06/21/2025 08:10:22 06/20/20 25 06/21/2025 CBC WITH DIFFE RENTI AL/PL ATELE T NRBC POSTDOCTORAL SCHOLAR Not Available [facility] ([facility]) [address] [facility], [place], [address], 06/21/2025 08:10:22 06/20/20 25 06/21/2025 CBC WITH DIFFE RENTI AL/PL ATELE T hematology comments: POSTDOCTORAL SCHOLAR Not Available [facility] ([facility]) [address] [facility], [place], [address], 06/21/2025 08:10:22 Result Notes None recorded. Problems Name Problem SNOMED Code Status Onset Date Resolution Date Notes Provider Name and Address Organization Details Recorded Time Hyperlipi demia 84676218 Active Maribel Brambilaler null, [place] - [facility] 3 16:18:08 Mass of left ovary 947716109532 14900 Active Maribel Macario null, [place] - [facility] 3 16:18:08 Bradycard ia 44714814 Active Maribel Macario null, [place] - [facility] 3 16:18:08 Fatigue 20297942 Active Maribel Sorto null, [place] - [facility] 3 16:18:09 Hypothyro idism 45516137 Active 2015 Maribelspike Sorto null, [place] - [facility] 3 16:18:08 Fibromyal lottie 801646314 Active 2015 Maribel monae, [place] - [facility] 3 16:18:08 Colitis 06784365 Active 2015 Maribel monae, [place] - [facility] 3 16:18:09 Chronic back pain 182001599 Active 2015 Maribel Sorto null, [place] - [facility] 3 16:18:08 Pain of hip region 91632444 Active 2015 Maribel Sorto null, [place] - [facility] 3 16:18:08 Pelvic mass 86608273 Active 2017 Maribel monae, [place] - [facility] 3 16:18:09 Granuloma annulare 77782483 Active 2019 GRAEME Jacobson - [facility] 3 16:18:09 Herpes simplex 69875193 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 per culture GRAEME Jacobson - [facility] 3 16:18:09 Acquired hypothyro idism 196272904 Active 2020 GRAEME Jacobson - [facility] 3 16:18:08 Vitamin D deficienc y 33956589 Active 2020 Maribel monae, [place] - [facility] 3 16:18:08 Mixed hyperlipi demia 897319565 Active 2020 GRAEME Jacobson - [facility] 3 16:18:08 Gastroeso phageal reflux disease without esophagit is 225030150 Active 2020 GRAEME Jacobson - [facility] 3 16:18:08 History of bariatric surgical procedure 931612269 Active 2022 GRAEME Jacobson - [facility] 3 16:18:09 Problem Notes None recorded. Procedures Surgical History Date Name Laterality Status Provider Name and Address Organization Details Recorded Time 024 Date of Last Mammogram completed Smita Boswell [place] - [facility] 08/01/2025 08:47:51 023 Medication Reconcilliation completed Maribel Sorto [place] - [facility] 04/26/2023 16:16:53 021 Date of Last Colonoscopy completed Kay Ulloa RN [address], [place], [address], [place] [facility] 02/27/2021 11:38:04 021 Diastolic B/P 80-89 mm Hg completed Mally Lopezyles [place] - [facility] 12/24/2020 13:04:11 021 Systolic B/P 130-139 mm Hg completed Mally Pradip [place] - [facility] 12/24/2020 13:04:05 021 Diastolic B/P 80-89 mm Hg completed Gretchen Chery APRN [address], [place], [address], [place] [facility] 11/04/2020 11:37:37 021 Systolic B/P 130-139 mm Hg completed Gretchen Chery APRN [address], [place], [address], [place] [facility] 11/04/2020 11:37:32 021 Date of Last Pap Smear completed Gretchen Chery APRN [address], [place], [address], [place] [facility] 11/07/2020 08:23:07 020 Systolic [...] 13:43:58 018 Salpingo-oophorecto my, Left completed Elena Castro [place] - [facility] 03/08/2018 13:44:06 996 delivery only completed Amanda Chavira [place] - [facility] 11/04/2020 09:15:51 988 Caesarean Section completed Amanda BEDOLLA - [facility] 11/04/2020 09:15:38 Tubal Ligation completed Amanda Chavira [place] [facility] 11/04/2020 09:14:53 Dilation and Curettage, sharp completed Smita Abramss [place] - [facility] 01/04/2018 12:55:06 Endoscopy completed Smita Alizas [place] - [facility] 01/04/2018 12:55:21 Bartholin Gland Marsupialization completed Smita Abramss [place] [facility] 01/04/2018 12:55:30 Colonoscopy completed Elena Castro [place] - [facility] 01/04/2018 13:56:42 Imaging Results None recorded. Procedure Notes None recorded. Medical Equipment None Reported. Allergies Allergen ID Allergen Name Allergen Category Reaction Reaction Severity Criticality Documentation Date Start Date Code Code System Note Provider Name and Address Organization Details Recorded Time 109856 acetamino phen medicatio n Not available Not available Not available 02/27/20212020 161 RxNorm unkno wn Mally Garcia null, [place] - [facility] 15:57:19 081889 cephalexi n medicatio n rash mild Not available 02/27/20212022 2231 RxNorm Maribel Sorto null, [place] - [facility] 3 16:17:50 007964 oxycodone medicatio n Not available Not available Not available 02/27/20212022 7804 RxNorm Maribel Sorto null, [place] - [facility] 3 16:17:50 200422 hydrocodo ne Not available Not available Not available Not available 04/26/20232022 5489 RxNorm Maribel Sorto null, [place] - [facility] 3 16:17:50 144096 propofol medicatio n Not available Not available Not available 04/26/20232022 8782 RxNorm Maribel Sorto null, [place] - [facility] 3 16:17:50 38388 Keflex medicatio n Not available Not available Not available 08/06/2016200816 7 RxNorm React ion: rash, diarr hea; Not Available [facility] 6 09:12:29 90739 acetamino phen / oxycodone medicatio n Not available Not available Not available 08/06/2016201318 3 RxNorm React ion: incre ase in B/P diffi culty veronique johnson; Comme nt: OnSet Date: 04/19 00; Not Available [facility] 6 09:31:51 03368 homatropi ne / hydrocodo ne medicatio n respirato ry distress Not available Not available 08/06/2016201461 4 RxNorm Not Available [facility] 6 10:03:41 00718 acetamino phen / hydrocodo ne medicatio n respirato ry distress Not available Not available 08/06/2016201418 2 RxNorm Not Available [facility] 6 10:03:41 Medications Name Sig [...] completed Not Available Not Available Not Available [place] Thyroid 60 mg tablet TAKE ONE (1) TABLET BY ORAL ROUTE DAILY FOR 30 DAYS 02/01 completed Not Available Not Available Not Available levothyro xine 137 mcg tablet 0.137 mg by oral route. 02/23 completed Not Available Not Available Not Available [place] Thyroid 90 mg tablet TAKE ONE (1) [...] Status: Recorded on: 08/20/20 15 1:12PM;U ser: [email or web address] Not Available Not Available Not Available azithromy [...] on: 01/11/20 13 2:40PM;U ser: [email or web address] ;Est. Completi on: 02/03/20 13;Print ed: 11/10/19 13 Not Available Not Available Not Available prednison e 20 mg tablet take 2 tablets (40 mg) by oral route once daily for 5 days 09/02 completed Not Available Not Available Not Available Synthroid 100 mcg tablet TAKE ONE (1) TABLET EVERY DAY BY ORAL ROUTE. active Not Available Not Available No t Available [place] Thyroid 120 mg tablet TAKE ONE (1) [...] Disconti nued on: 09/17/20 14 12:26PM; User: xander; Est. Completi on: 12/09/19 15;Pharm acyVerif ied: 06/12/20 14 4:44PM Not Available Not Available Not Available amoxicill in 500 mg tablet take 4 tablets (2 gram) by oral route 1 hour prior to procedur e 02/10 completed amoxicil rosio 500 mg oral tablet;P rescribe Status: Prescrib ed on: 12/16/19 16 11:32AM; Disconti nued Status: Disconti nued on: 02/11/20 16 1:02PM;U ser: [email or web address]; Pharmacy Verified : 12/16/19 16 11:32AM Not Available Not Available Not Available acyclovir 800 mg tablet 06/21 completed Not Available Not Available Not Available calcium 315 mg (as citrate)- ergocalci ferol (vit D2) 200 unit tablet 01/30 completed Not Available Not Available Not Available [...] Disconti nued on: 08/20/20 15 1:12PM;U ser: [email or web address]; Est. Completi on: 05/14/20 15;Indic ation: Burn Wound Infectio ns - ([phone] 01);Phar Dev fied: 04/30/20 15 3:02PM Not Available Not [...] Disconti nued on: 10/14/20 15 1:34PM;U ser: [email or web address]; Est. Completi on: 11/23/19 16;Pharm acyVerif ied: 08/25/20 15 5:33PM Not Available Not [...] completed Not Available Not Available Not Available [place] Thyroid 30 mg tablet TAKE ONE (1) [...] lotepredn ol etabonate 0.5 % eye drops,lissa dailyon 01/04 completed Not Available Not Available Not [...] Available Ciprodex 0.3 %-0.1 % ear drops,lissa pension instill 4 drops into right ear by [...] release 24 hr;comme nt: pt couldn't afford it;[facility] ribe Status: Prescrib ed on: 08/01/20 13 2:36PM;D iscontin ued Status: Disconti nued on: 08/14/20 13 5:38PM;U ser: [email or web address]; Est. Completi on: 01/29/20 14;Indic ation: Major Depressi ve Disorder - ([id number]);Verenice Méndez fied: 08/01/20 13 2:36PM Not [...] height Body mass index (BMI) Body weight Heart rate Oxygen saturation Oxygen saturation in Arterial blood by Pulse oximetry Respiratory rate Body temperature Systolic And Diastolic Provider Name and Address Organization Details Last Updated DateTime 5 165.1 cm 32.9 kg/m2 01452.2 9 g 70 /min 97 % 97 % 18 /min 98 [degF] 138/80 mm[Hg] Smita Boswell [place] - [facility] 5 14:33:54 Social History Question Answer Notes LastModified by Organizat ion Details LastModified Time Tobacco Smoking Status Former Smoker Not Available [employer] 08/15/2020 03:17:09 Able To Swim? Yes Information not available 09/02/2016 Do You Have An Advance Directive? No [id number] Information n ot available 08/15/2020 Do You Wear A Helmet When Biking? No [id number] Information not available 08/15/2020 Are You Blind Or Do You Have Difficulty Seeing? No [id number] Information n ot available 08/15/2020 Is Blood Transfusion Acceptable In An Emergency? Yes [id number] Information not available 08/15/2020 What Is Your Level Of Caffeine Consumption? Moderate [id number] Information not available 08/15/2020 How Much Tobacco Do You Chew? None [id number] Information not available 08/15/2020 In The 14 [...] Do You Have Serious Difficulty Hearing? No [id number] Information not available 08/15/2020 What Type Of Diet Are You Following? REGULAR [id number] Information n ot available 08/15/2020 Which Illicit Or Recreational Drugs Have You Used? None [id number] Information not available 08/15/2020 Have You Processed [...] Or The Highest Degree You Have Received? [id number] [email or web address] Information not available 11/04/2020 How Many Days Of Moderate To Strenuous Exercise, Like A Brisk Walk, Did You Do In The Last 7 Days? 0 [email or web address] Information not available 11/04/2020 On Those Days That You Engage In Moderate To Strenuous Exercise, How Many Minutes, On Average, Do You Exercise? 0 [email or web address] Information not available 11/04/2020 Swimming/diving Yes [email or web address] Informati on not available 12/09/2016 Have There Been Any Changes To Your Family Or Social Situation? No Information no t available 12/09/2023 How Hard Is It For You To Pay For The Very Basics Like Food, Housing, Medical Care, And Heating? [id number] [email or web address] Information not available 11/04/2020 What Is The Fluoride Status Of Your Home? Unknown Information not available 12/09/2023 When Did You Quit Smoking? 1-5yearssince lastcigarette [id number] Information not available 08/15/2020 Hard Of Hearing [...] Do You Have A Medical Power Of Warehouse Driver? No Information not available 12/09/2023 What Was The Date Of Your Most Recent Tobacco Screening? 06/20/2025 Information not available 06/20/2025 How Many Children Do You Have? 2 [id number] Information not available 08/15/2020 Performs Monthly Self-breast Exam? No Information no t available 01/04/2018 Do You Use Protection During Sex? No [id number] Information not available 08/15/2020 What Is Your Relationship Status? [id number] Information not available 08/15/2020 Seat Belts Used Routinely Yes Information not available 09/02/2016 Are You Sexually Active? Yes [id number] Information not available 08/15/2020 Smoke Alarm In Home Yes Information not available 09/02/2016 Do You Have Smoke And Carbon Monoxide Detectors In Your Home? Yes Information not available 12/09/2023 At What Age Did You Start Smoking Tobacco? 23 [id number] Information not available 08/15/2020 Are You Passively Exposed To Smoke? No Information no t available 09/02/2016 How Much Tobacco Do You Smoke? 0.5 PPD [id number] Information not available 08/15/2020 General Stress Level Low Information not available 09/02/2016 Do You Use Sunscreen Routinely? Yes [id number] Information not available 08/15/2020 Has Tobacco Cessation Counseling Been Provided? No [id number] Information not available 08/15/2020 How Many Years Have You Smoked Tobacco? 25 [id number] Information not available 08/15/2020 Do You Have Difficulty Walking Or Climbing Stairs? Yes [id number] Information not available 08/15/2020 Sex: Female Functional Status Question Answer Note LastModified by [employer] Details LastModified Time Do you use any illicit or recreational drugs? No Information not available 12/09/2023 What is your level of alcohol consumption? None [id number] Information not available 08/15/2020 Do you or have you ever used smokeless tobacco? Never used smokeless tobacco [id number] Information not available 08/15/2020 Are you currently employed? Yes [id number] Information not available 08/15/2020 Do you have transportation difficulties? No Information not available 12/09/2023 Are you able to walk independently without assistance or assistive devices? YESWOREST [id number] Information not available 08/15/2020 Do you have difficulty doing errands alone? No [id number] Information not available 08/15/2020 Are you able to care for yourself independently? 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 No [id number] Information not available 08/15/2020 Do you or have you ever used e-cigarettes or vape? Never used electronic cigarettes [id number] Information not available 08/15/2020 What is your exercise level? Occasional [id number] Information not available 08/15/2020 Mental Status Question Answer Note LastModified by [employer] Details LastModified Time Do you feel stressed (tense, restless, nervous, or anxious, or unable to sleep at night)? [id number] [email or web address] Information not available 11/04/2020 Do you have difficulty concentrating, remembering or making decisions? No [id number] Information no t available 08/15/2020 Family History Relationship Description Onset Age of this Age Resolved Age Notes LastModified by Organization Details LastModified Time Father Hypertensive disorder Not available 2015 16:23:44 Father Hypercholest erolemia Not available 2015 16:24:17 Father Heart disease [email or web address] Not available 2020 09:13:48 Maternal Grandmother Hypertensive disorder Not available 2015 16:23:56 Maternal Grandmother Cerebrovascu lar accident Not available 04/2018 13:54:40 Mother Pulmonary emphysema Not available 2015 16:24:31 Paternal Grandfather Cerebrovascu lar accident Not available 12/2015 16:24:46 Paternal Grandmother Myocardial infarction Not available 09/02 16:25:17 Paternal Uncle Malignant neoplasm of urinary bladder Not available 2017 13:55:02 Paternal Uncle Malignant neoplasm of pharynx [email or web address] Not available 2017 13:55:16 Medical History Condition Response Pancreatitis N Coronary Artery Disease N Other N Gout N Atrial Fibrillation N congenital heart disease N Kidney Stones N Blood Diseases N Hyperthyroidism N Rheumatoid arthritis N Blood Transfusion N Erectile Dysfunction N amputation N Skin Lesions N Depression N COPD N Pneumonia N Incontinence N Murmur N Edema N Alzheimer's Disease N Migraine Headaches N Tobacco Abuse N Anxiety Disorder N Muscle, Joint, or Bone Problems N Hemorrhoids N Obesity N Vision or Eye Problems N Restless Leg Syndrome N Arthritis N Polyps N Infertility N Mental Disorder N Carpal Tunnel N Acid Reflux (GERD) N Cancer N Varicosities N Stroke N Tendonitis N Crohn's Disease N Hypercholesterolemia N Skin Cancer N Headaches N Fibromyalgia Y Irritable Bowel Syndrome N Anal Fissure N Kidney Disease N Heart Problems N [...] Fasciitis N Hospital Admission Other Than N Lung Disease N Hypothyroidism Y Defects or Inherited Disease N Developmental or Behavioral Disorders N Breast Problem N Difficulty Swallowing N Ovarian Cyst N Anesthesia Complications N Testosterone Deficiency N Meniere's disease N Head Injury/Concussion N Interstitial Cystitis N Congenital Anomalies N Hypoglycemia N Blood clot N Vitamin D Deficiency N Cellulitis N Endometriosis N Bladder or Kidney Problems N Fracture N Liver Disease N Schizophrenia N Panic Disorder N Concussion N Spina Bifida N Allergies/Hayfever N Osteoarthritis N Parkinson's Disease N Disc Protrusion N STI N Esophagitis N Angina N Thyroid Problems N GI Problems N ADD/ADHD N Anemia N Multiple Sclerosis N Abnormal PAP N Lumbago N Mental Illness N Psychiatric Illness N Ovarian Cancer N Diabetes N Bedwetting N Degenerative Disc Disease N Seizures/Epilepsy N Congestive Heart Failure (CHF) N Syncope N Hyperlipidemia Y Insomnia N Eczema N Abuse/Domestic Violence N Attention Deficient Disorder N Dementia N Diverticulitis N Ulcerative colitis N Cerebrovascular Disease N Depression N Guillain-[place] N Sleep Apnea N Aneurysm N Bronchitis [...] Details Recorded Time Pneumococcal conjugate PCV20, polysaccharide [id number] conjugate, adjuvant, PF 025 cancelled patient objection Bindu Pozo APRN [address], [place], [address], [place] [facility] 08/01/2025 09:31:21 zoster recombinant 025 cancelled patient objection Bindu Pozo APRN [address], [place], [address], [place] [facility] 08/01/2025 09:31:21 Influenza, split virus, trivalent, PF 025 cancelled patient objection Bindu Pozo APRN [address], [place], [address], [place] [facility] 08/01/2025 09:31:21 COVID-19, mRNA, LNP-S, PF, 100 mcg/0.5mL dose or 50 mcg/0.25mL dose 022 completed Not Available [facility] 04/20/2023 14:12:37 Td (adult), 2 Lf tetanus toxoid, preservative free, adsorbed 998 completed Not Available [facility] 04/20/2023 14:12:37 Tdap 016 completed Not Available [facility] 04/20/2023 14:12:37 COVID-19, mRNA, LNP-S, PF, 100 mcg/0.5mL dose or 50 mcg/0.25mL dose 021 completed Not Available [facility] 04/20/2023 14:12:37 COVID-19, mRNA, LNP-S, PF, 100 mcg/0.5mL dose or 50 mcg/0.25mL dose 021 completed Not Available [facility] 04/20/2023 14:12:37 COVID-19, mRNA, LNP-S, PF, 100 mcg/0.5mL dose or 50 mcg/0.25mL dose 021 completed Not Available [facility] 04/20/2023 14:12:37 Influenza, split virus, quadrivalent, PF 019 cancelled patient objection Not Available [facility] 11/17/2019 03:56:06 Past Encounters Encounter ID Performer Location Encounter Start Date Encounter Closed Date Diagnosis/Indication Diagnosis SNOMED-CT Code Diagnosis ICD10 Code Diagnosis IMO Codes Diagnosis Note [id number] Bindu Pozo APRN [address] [address] 06/20/2025 08:55:18 06/20/2025 09:40:34 History of bariatric surgical procedure 578363830 Z98.84 Full blood count outside reference range 573831567 R79.89 922751 labs [id number] Bindu Pozo APRN [address] [address] 07/05/2025 14:16:33 07/05/2025 15:19:31 Low back pain 413929242 M54.50 [id number] sent to ed for eval Neck pain 62769603 M54.2 [id number] Health Concerns Section Related Observation LastModified by Organization Detai ls LastModified Time None Recorded Concern Status LastModified by Organization Details LastModified Time None Recorded Payers Encounter Date Sequence Insurance Name Policy Number Policy Brock Covered Member ID Brock Member ID Guarantor Name 07/05/2025 [place] [employer] Nelia L Silva Nelia L Silva Notes Date Note Type Note Provider Name and Address Organization Details Recorded Time 07/05/2025 text/html Back PainReporte d by PatientHPIFor location, patient reportspain is not

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
--- OUTSIDE RECORDS SUMMARY | 2025-08-01 12:55 | XMS_ITS | Clinical Summary ---
Author Organization [facility] , [facility] Address [address] [place] [address] Phone Care Team Providers Care Director Of [employer] Name Role Phone Kj Malone MD Unavailable [phone] Jaysheba ALEXANDER Devorahravi Shah Unavailable [phone] Reason for Referral Date Encounter Description Provider Reason for Referral 07/15/22 Follow Up Kj Malone MD Referral T o Physician Reason for Visit and Chief Complaint The Chief Complaint is: Left knee pain Problems Includes: Problems addressed during this encounter and other active Problems All Visits Onset Date Resolved Date Provider Condition S tatus Joint Pain Left Knee 06/16/2022 Kyung diaz PA-C Active Last Documented On 2 2:51PM ; [facility], [facility] Plan of Treatment Instructions to patient No intervention and counseli ng on cessation of tobacco use Last Documented On 2 11:07AM ; [facility] Lose weight Last Documented On 2 11:07AM ; [facility] Assessments Includes: Assessments from this encounter Findings Assessment - Last Documented On 07/18/2022 7:04PM ; [facility] Primary left knee osteoarthritis, chronic, worsening - Last Documented On 07/18/2022 7:04PM ; [facility] Plan - Last Documented On 07/18/2022 7:04PM ; [facility] Treatment options were discussed with the patient and her , both surgical and nonsurgical. She has failed extensive conservative treatment options including multiple Depo-Medrol injection, viscosupplementation, physician directed exercises, anti-inflammatories, activity modifications and rest. She continues weight loss efforts. She is interested in surgical intervention. She has elected to have a left knee arthroscopy and debridement. Risks of the procedure were discussed with the patient which include but are not limited to infection, persistent pain, blood clots, pulmonary embolus, need for repeat surgery, cardiac events, fat embolus, swelling, stroke and even . The patient has identified risk factors which include obesity and DM. She had ample opportunity to have all of her questions answered by the medical care team and are encourage to contact us with any questions, changes or concerns that arise prior to procedure. She agrees to proceed as scheduled. - Last Documented On 07/18/2022 7:04PM ; [facility] Instructions Includes: Instructions from this encounter Instructions to patient No intervention and counseli fer on cessation of tobacco use Last Documented On 2 11:07AM ; [facility] Lose weight Last Documented On 2 11:07AM ; [facility] Medical Equipment - Implanted Devices Includes: Current Devices No Medical Equipment Recorded Medications Includes: Medications discussed during this encounter and other current Medications Current Medications (continue as prescribed) Topiramate ER 100 MG Oral Capsule Extended Release 24 Hour 06/16/2022 Provider: Diagnosis: Last Documented On 2 3:28PM By Fidelia Henao ; [facility] Monjuvi 200 MG Intravenous Solution Reconstituted 05/31 Provider: Diagnosis: Last Documented On 2 3:28PM By Fidelia Henao ; [facility] [place] Thyroid 120 MG Oral Tablet 06/03/2022 Provide r: Devorah Thompson APRN Diagnosis: Last Documented On 2 2:51PM By Fidelia Henao ; [facility], [facility] Rosuvastatin Calcium 5 MG Oral Tablet 05/21/2022 Pro vider: Devorah Thompson APRN Diagnosis: Last Documented On 2 2:51PM By Fidelia Henao ; [facility], [facility] Past Medications on file Ibuprofen 800 MG Oral Tablet 08/19/2022 - 11/17/2022 Eloy lee: Kyung Walter PA-C Diagnosis: 1 tab PO TID prn for pain Last Documented On 2 1:33PM By Kyung Walter ; [facility] Acetaminophen-Codeine #3 300 -30 MG Oral Tablet 08/19/2022 - 08/29/2022 Provider: Kj Sapp Diagnosis: 1 tab PO TID prn for pain Last Documented On 2 1:49PM By Kj Malone ; [facility] Medications Administered Includes: Administered Medications from this encounter No Administered Medications Recorded Vital Signs Includes: Vital Signs from this encounter Vital Name 07/15/2022 11:07A Blood Pressure Sitting (mmHg) 115/97 Pulse Rate-Sitting (bpm) 75 Height (in) 65 Weight (lb) 284 Body Mass Index (kg/m2) 47.3 Body Surface Area (m2) 2.3 Pain Level 7 Note: TMR Last Documented: On 07/15/2022 11:10A M ; [facility] Results Includes: Results discussed during this encounter No Results Recorded For Specified Dates History of Present Illness Includes: History of Present Illness from this encounter JESSIKA Silva is a 57 year old female. - Symptoms POPPING, GRINDING, OTHER BETTER--NOT DOING ANYTHING WORSE--STAIRS. - Allergy list reviewed - Problem list reviewed - Medication list reviewed - Sharp pain Symptoms - Pain is dull, aching - Patient pain level from 1-10: 5 - Yes, previous treatment. - History of Injections DEPO MEDROL, DUROLANE This is a 57-year-old female who presents today for follow-up of her left knee pain. She is s/p left knee depo-medrol injection on 06/16/22, noting a few weeks of relief. She continues to complain of moderate to severe pain along the medial left knee that is worse over the 6 months. She describes the pain as sharp in nature, rating it a 7 out of 10 today. Her pain is worse with increased activity or ambulating for extended periods of time. She notes intermittent swelling. She is status post left knee Durolane injection on 03/10/2022, noting mild relief of her symptoms. Her pain has been pretty constant. She continues on diclofenac gel and Tylenol with mild relief. She has attempted 6-8 weeks of physician directed exercises and activity modifications which has not helped. She is interested in surgical intervention. Social History Description Last Updated Tobacco non-user 07/15/2022 Last Documented On 2 7:04PM ; [facility], [facility] Caffeine use 07/15/2022 Last Documented On 2 7:04PM ; [facility] Non-smoker 07/15/2022 Last Documented On 2 7:04PM ; [facility], [facility] Not a current smoker. 07/15/2022 Last Documented On 2 7:04PM ; [facility], [facility] Not a smoker 07/15/2022 Last Documented On 2 7:04PM ; [facility], [facility] Not exercising regularly 07/15/2022 Last Documented On 2 7:04PM ; [facility] Not using alcohol 07/15/2022 Last Documented On 2 7:04PM ; [facility] Not using drugs 07/15/2022 Last Documented On 2 7:04PM ; [facility] Recent change in diet 07/15/2022 Last Documented On 2 7:04PM ; [facility], [facility] Smoking Status Unknown Procedures and Surgical History Includes: Procedures from this encounter Procedures Code Diagnosis Performing Provider Service L ocation Service Date no intervention and counseling on cessation of tobacco use 4000F Last Documented On 2 11:07AM ; [facility], [facility] use of tobacco assessment performed 1000F Last Documented On 2 11:07AM ; [facility] no influenza immunization patient refuse d Last Documented On 2 11:07AM ; [facility], [facility] patient not screened for future fall risk 3288F Last Documented On 2 11:07AM ; [facility], [facility] follow-up visit in one month with PCP fo r elevated BP Last Documented On 2 11:07AM ; [facility], [facility] referral to physician Last Documented On 2 11:07AM ; [facility], [facility] an X-ray was performed 31913 Last Documented On 2 11:07AM ; [facility], [facility] an MRI was performed [id number] Last Documented On 2 11:07AM ; [facility] Medical History Includes: Medical History addressed during this encounter Description Last Updated FIBROMYALGIA 07/15/2022 Last Documented On 2 7:04PM ; [facility] No recent immunization for flu 2 Last Documented On 2 7:04PM ; [facility] No recent immunization for pneumococcal pneumonia 07/15/2022 Last Documented On 2 7:04PM ; [facility] Past Surgical History: . TUOR R EMOVAL 07/15/2022 Last Documented On 2 7:04PM ; [facility] Family History Includes: Family History addressed during this encounter Description Last Updated Diabetes mellitus 07/15/2022 Last Documented On 2 7:04PM ; [facility] Family history of cancer 07/15/2022 Last Documented On 2 7:04PM ; [facility] Family history of heart disease 07/15/20 22 Last Documented On 2 7:04PM ; [facility] Family history of systemic hypertension 07/15/2022 Last Documented On 2 7:04PM ; [facility] Stroke / Seizures 07/15/2022 Last Documented On 2 7:04PM ; [facility] Review of Systems Includes: Review of Systems from this encounter Systemic: Not feeling tired and no recent weight loss. Recent weight gain. Head: Headache. No sinus pain. Eyes: No vision problems, no Cataracts, no Glasses/Contacts, and no Glaucoma. Otolaryngeal: No hearing loss and no tinnitus. Cardiovascular: No chest pain or discomfort, no palpitations, no Hypertension, and no High Cholesterol. Pulmonary: No daytime asthma symptoms and no chronic cough. No wheezing. Gastrointestinal: No heartburn and no abdominal pain. No Indigestion, no Acid Reflux, no Peptic Ulcer, no GI Stomach Bleed, and no Ulcers. Endocrine: Hot flashes. No muscle weakness. Diabetes and Hypothyroid. No Hyperthyroid. Hematologic: No easy bleeding, no tendency for easy bruising, and no Anemia. Musculoskeletal: No Arthritis and no lower back pain. No soft tissue swelling and no localized joint pain. Neurological: No dizziness, no convulsions, and no numbness. Psychological: No anxiety, no emotional lability, no depression, and no insomnia. Not crying for no reason. Skin: No dry skin. No Ulcers, no Scars, and no rash. Allergic and Immunologic: No complaint of seasonal allergic reaction. Mental Status Includes: Mental Status from this encounter Description No anxiety Functional Status Includes: Functional Status from this encounter No Functional Status Recorded Physical Exam Includes: Physical Exam from this encounter Allergies Includes: Active Allergies Substance Type Reaction Onset Date Resolved Date Statu s Percocet Allergy 06/16/2022 Active Last Documented On 2 1:14PM ; [facility], [facility] Keflex Allergy Skin Rashes / Eruption of skin 2 Active Last Documented On 2 1:14PM ; [facility] HYDROcodone-Acetaminophen Allergy Shortness of Breath / Dy spnea 06/16/2022 Active Last Documented On 2 1:14PM ; [facility] Encounters Encounter Provider Location Date Check-In Time Check- Out Time Diagnosis Follow Up Kj Malone MD [facility] 2 11:00AM 1:02PM Insurance Includes: Active Insurance Policies Plan Name Member ID Group # Subscriber Relationship Effect marybel Dates 1 - [facility] [id number] Nelia Silva Self 10/31/2021 - Unknown Clinical Notes Includes: Clinical Notes from this encounter No Clinical Notes Recorded
--- OUTSIDE RECORDS SUMMARY | 2025-08-01 12:55 | XMS_ITS | Clinical Summary ---
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 Name Role Phone Faisal GAN, Kj Unavailable [phone] Devorah Thompson APRN Unavailable [phone] Reason for Visit and Chief Complaint The Chief Complaint is: Left knee pain Problems Includes: Problems addressed during this encounter and other active Problems All Visits Onset Date Resolved Date Provider Condition S tatus Joint Pain Left Knee 06/16/2022 Kyung diaz PA-C Active Last Documented On 2 2:51PM ; [facility] Plan of Treatment Continue weight-bear as tolerated and physical therapy Discussed aspiration and depo-medrol injection in the future if swelling continues. She would like to wait at this time. RTC in 1 month. - Last Documented On 09/10/2022 5:52AM ; [facility] Instructions to patient No intervention and counseli ng on cessation of tobacco use Last Documented On 2 1:15PM ; [facility] Lose weight Last Documented On 2 1:15PM ; [facility] Assessments Includes: Assessments from this encounter Findings Postoperative left knee arthroscopy on 08/11/2022 - Last Documented On 09/10/2022 5:52AM ; [facility] Instructions Includes: Instructions from this encounter Instructions to patient No intervention and counseli ng on cessation of tobacco use Last Documented On 2 1:15PM ; [facility] Lose weight Last Documented On 2 1:15PM ; [facility] Medical Equipment - Implanted Devices Includes: Current Devices No Medical Equipment Recorded Medications Includes: Medications discussed during this encounter and other current Medications Current Medications (continue as prescribed) Topiramate ER 100 MG Oral Capsule Extended Release 24 Hour 06/16/2022 Provider: Diagnosis: Last Documented On 2 3:28PM By Fidelia Henao ; [facility] Monjuvi 200 MG Intravenous Solution Reconstituted 05/31 Provider: Diagnosis: Last Documented On 2 3:28PM By Fidelia Henao ; [facility] [place] Thyroid 120 MG Oral Tablet 06/03/2022 Provide r: Devorah Thompson APRN Diagnosis: Last Documented On 2 2:51PM By Fidelia Henao ; [facility] Rosuvastatin Calcium 5 MG Oral Tablet 05/21/2022 Pro vider: Devorah Thompson APRN Diagnosis: Last Documented On 2 2:51PM By Fidelia Henao ; [facility] Past Medications on file Ibuprofen 800 MG Oral Tablet 08/19/2022 - 11/17/2022 Eloy ewingder: Kyung aWlter PA-C Diagnosis: 1 tab PO TID prn for pain Last Documented On 2 1:33PM By Kyung Walter ; [facility] Acetaminophen-Codeine #3 300 -30 MG Oral Tablet 08/19/2022 - 08/29/2022 Provider: Kj Sapp Diagnosis: 1 tab PO TID prn for pain Last Documented On 2 1:49PM By Kj Jeffery [facility] Medications Administered Includes: Administered Medications from this encounter No Administered Medications Recorded Vital Signs Includes: Vital Signs from this encounter Vital Name 09/08/2022 01:18P Blood Pressure Sitting (mmHg) 148/75 Pulse Rate-Sitting (bpm) 79 Height (in) 65 Weight (lb) 287.2 Body Mass Index (kg/m2) 47.8 Body Surface Area (m2) 2.3 Pain Level 5 Last Documented: On 09/08/2022 1:20PM ; [facility] Results Includes: Results discussed during this encounter No Results Recorded For Specified Dates History of Present Illness Includes: History of Present Illness from this encounter JESSIKA Silva is a 57 year old female. - Allergy list reviewed - Problem list reviewed - Medication list reviewed - Patient pain level from 1-10: 5 This is a 57-year-old female who is status post left knee arthroscopy and debridement. She is 3 weeks and 7 days out from surgery. She complains of mild to moderate pain in her left knee. She states that the swelling an burning pain are improving some. She rates her pain a 5/10 today. She continues PT and is ambulating without assistance. She is scheduled to discuss weight loss surgery in [place] later this week and is very excited about this. Social History Description Last Updated Caffeine use 09/08/2022 Last Documented On 2 5:52AM ; [facility] Non-smoker 09/08/2022 Last Documented On 2 5:52AM ; [facility], [facility] Not a current smoker. 09/08/2022 Last Documented On 2 5:52AM ; [facility] Not a smoker 09/08/2022 Last Documented On 2 5:52AM ; [facility], [facility] Not exercising regularly 09/08/2022 Last Documented On 2 5:52AM ; [facility] Not using alcohol 09/08/2022 Last Documented On 2 5:52AM ; [facility] Not using drugs 09/08/2022 Last Documented On 2 5:52AM ; [facility] Recent change in diet 09/08/2022 Last Documented On 2 5:52AM ; [facility] Tobacco non-user 09/08/2022 Last Documented On 2 5:52AM ; [facility] Smoking Status Unknown Procedures and Surgical History Includes: Procedures from this encounter Procedures Code Diagnosis Performing Provider Service L ocation Service Date no intervention and counseling on cessation of tobacco use 4000F Last Documented On 2 1:15PM ; [facility], [facility] use of tobacco assessment performed 1000F Last Documented On 2 1:15PM ; [facility], [facility] no influenza immunization patient refuse d Last Documented On 2 1:15PM ; [facility] patient not screened for future fall risk 3288F Last Documented On 2 1:15PM ; [facility] follow-up visit in one month with PCP eloisa dc elevated BP Last Documented On 2 1:15PM ; [facility] an X-ray was performed [id number] Last Documented On 2 1:15PM ; [facility] an MRI was performed [id number] Last Documented On 2 1:15PM ; [facility] Medical History Includes: Medical History addressed during this encounter Description Last Updated FIBROMYALGIA 09/08/2022 Last Documented On 2 5:52AM ; [facility] No recent immunization for flu 2 Last Documented On 2 5:52AM ; [facility] No recent immunization for pneumococcal pneumonia 09/08/2022 Last Documented On 2 5:52AM ; [facility] Past Surgical History: . MONIK R EMOVAL 09/08/2022 Last Documented On 2 5:52AM ; [facility] Family History Includes: Family History addressed during this encounter Description Last Updated Diabetes mellitus 09/08/2022 Last Documented On 2 5:52AM ; [facility] Family history of cancer 09/08/2022 Last Documented On 2 5:52AM ; [facility] Family history of heart disease 09/08/20 22 Last Documented On 2 5:52AM ; [facility] Family history of systemic hypertension 09/08/2022 Last Documented On 2 5:52AM ; [facility] Stroke / Seizures 09/08/2022 Last Documented On 2 5:52AM ; [facility] Review of Systems Includes: Review of [...] Active Last Documented On 2 1:14PM ; [facility] Keflex Allergy Skin Rashes / Eruption of skin 2 Active Last Documented On 2 1:14PM ; [facility] HYDROcodone-Acetaminophen Allergy Shortness of Breath / Dy spnea 06/16/2022 Active Last Documented On 2 1:14PM ; [facility], [facility] Encounters Encounter Provider Location Date Check-In Time Check- Out Time Diagnosis Post Op Kyung Walter PA-C [facility] 2 1:10PM 2:02PM Insurance Includes: Active Insurance Policies Plan Name Member ID Group # Subscriber Relationship Effect marybel Dates 1 - [facility] [id number] Nelia Silva Self 10/31/2021 - Unknown Clinical Notes Includes: Clinical Notes from this encounter No Clinical Notes Recorded
--- OUTSIDE RECORDS SUMMARY | 2025-08-01 12:55 | XMS_ITS | Clinical Summary ---
Author Organization [facility] , [facility] Address [address] [place] [address] Phone Care Team Providers Care Peoplesoft Financial Developer Name Role Phone Faisal GAN, Kj Unavailable [phone] Jay BENJAMIN Devorahravi Shah Unavailable [phone] Reason for Referral Date Encounter Description Provider Reason for Referral 08/19/22 Post Op Kj Malone MD Referral T o Physician Reason for Visit and Chief Complaint The Chief Complaint is: Left knee pain Problems Includes: Problems addressed during this encounter and other active Problems All Visits Onset Date Resolved Date Provider Condition S tatus Joint Pain Left Knee 06/16/2022 Kyung diaz PA-C Active Last Documented On 2 2:51PM ; [facility], [facility] Plan of Treatment Remove sutures and replace with steri-strips Rx: Ibuprofen 800mg TID prn for pain and inflammation Continue weight-bear as tolerated and physical therapy RTC in 3 weeks - Last Documented On 08/22/2022 8:58PM ; [facility], [facility] Instructions to patient No intervention and counseli ng on cessation of tobacco use Last Documented On 2 12:59PM ; [facility], [facility] Lose weight Last Documented On 2 12:59PM ; [facility], [facility] Assessments Includes: Assessments from this encounter Findings Postoperative left knee arthroscopy on 08/11/2022 - Last Documented On 08/22/2022 8:58PM ; [facility], [facility] Instructions Includes: Instructions from this encounter Instructions to patient No intervention and counseli ng on cessation of tobacco use Last Documented On 2 12:59PM ; [facility] Lose weight Last Documented On 2 12:59PM ; [facility] Medical Equipment - Implanted Devices Includes: Current Devices No Medical Equipment Recorded Medications Includes: Medications discussed during this encounter and other current Medications New / Renewed during this visit Kyung Walter PA-C on 08/19/2022 Ibuprofen 800 MG Oral Tablet Provider: Kyung Kennedy 30 day supply: 90 tablet, 2 refills Diagnosis: 1 tab PO TID prn for pain Pharmacy: [facility] #[id number] - [address] [facility], [address] - Last Documented On 2 1:33PM By Kyung Walter ; [facility] Acetaminophen-Codeine #3 300 -30 MG Oral Tablet Provider: Kj Malone MD 10 day supply: 30 tablet, 0 refills Diagnosis: 1 tab PO TID prn for pain [id number] [address] [facility], [address] - Last Documented On 2 1:49PM By Kj Malone ; [facility] Current Medications (continue as prescribed) Topiramate ER 100 MG Oral Capsule Extended Release 24 Hour 06/16/2022 Provider: Diagnosis: Last Documented On 2 3:28PM By Fidelia Henao ; [facility] Monjuvi 200 MG Intravenous Solution Reconstituted 05/31 Provider: Diagnosis: Last Documented On 2 3:28PM By Fidelia Henao ; [facility] [place] Thyroid 120 MG Oral Tablet 06/03/2022 Provide r: Devorah Thompson APRN Diagnosis: Last Documented On 2 2:51PM By Fidelia Henao ; [facility] Rosuvastatin Calcium 5 MG Oral Tablet 05/21/2022 Pro vider: Devorah Thompson APRN Diagnosis: Last Documented On 2 2:51PM By Fidelia Henao ; [facility], [facility] Medications Administered Includes: Administered Medications from this encounter No Administered Medications Recorded Vital Signs Includes: Vital Signs from this encounter Vital Name 08/19/2022 01:07P Blood Pressure Sitting (mmHg) 118/75 Pulse Rate-Sitting (bpm) 9 Height (in) 65 Weight (lb) 278 Body Mass Index (kg/m2) 46.3 Body Surface Area (m2) 2.3 Note: Last Documented: On 08/19/2022 1:13PM ; [facility] Results Includes: Results discussed during this encounter No Results Recorded For Specified Dates History of Present Illness Includes: History of Present Illness from this encounter JESSIKA Silva is a 57 year old female. - Allergy list reviewed - Problem list reviewed - Medication list reviewed This is a 57-year-old female who is status post left knee arthroscopy and debridement. She is 8 days out from surgery. She complains of moderate pain in her left knee. She describes the pain as burning in nature, rating a 10 out of 10 today. Swelling is associated. Her symptoms are worse with activity. She has started physical therapy and is ambulating without assistance. Her pain is minimally controlled with tramadol. She denies any drainage from incision site, fever or increased erythema. Social History Description Last Updated Caffeine use 08/19/2022 Last Documented On 2 8:58PM ; [facility] Non-smoker 08/19/2022 Last Documented On 2 8:58PM ; [facility] Not a current smoker. 08/19/2022 Last Documented On 2 8:58PM ; [facility] Not a smoker 08/19/2022 Last Documented On 2 8:58PM ; [facility] Not exercising regularly 08/19/2022 Last Documented On 2 8:58PM ; [facility] Not using alcohol 08/19/2022 Last Documented On 2 8:58PM ; [facility] Not using drugs 08/19/2022 Last Documented On 2 8:58PM ; [facility] Recent change in diet 08/19/2022 Last Documented On 2 8:58PM ; [facility] Tobacco non-user 08/19/2022 Last Documented On 2 8:58PM ; [facility] Smoking Status Unknown Procedures and Surgical History Includes: Procedures from this encounter Procedures Code Diagnosis Performing Provider Service L ocation Service Date no intervention and counseling on cessation of tobacco use 4000F Last Documented On 2 12:59PM ; [facility] use of tobacco assessment performed 1000F Last Documented On 2 12:59PM ; [facility] no influenza immunization patient refuse d Last Documented On 2 12:59PM ; [facility] patient not screened for future fall risk 3288F Last Documented On 2 12:59PM ; [facility] follow-up visit in one month with PCP fo r elevated BP Last Documented On 2 12:59PM ; [facility] to physician Last Documented On 2 12:59PM ; [facility] an X-ray was performed 54812 Last Documented On 2 12:59PM ; [facility] an MRI was performed [id number] Last Documented On 2 12:59PM ; [facility] Medical History Includes: Medical History addressed during this encounter Description Last Updated FIBROMYALGIA 08/19/2022 Last Documented On 2 8:58PM ; [facility] No recent immunization for flu 2 Last Documented On 2 8:58PM ; [facility] No recent immunization for pneumococcal pneumonia 08/19/2022 Last Documented On 2 8:58PM ; [facility] Past Surgical History: . TUOR R EMOVAL 08/19/2022 Last Documented On 2 8:58PM ; [facility] Family History Includes: Family History addressed during this encounter Description Last Updated Diabetes mellitus 08/19/2022 Last Documented On 2 8:58PM ; [facility] Family history of cancer 08/19/2022 Last Documented On 2 8:58PM ; [facility] Family history of heart disease 08/19/20 22 Last Documented On 2 8:58PM ; [facility] Family history of systemic hypertension 08/19/2022 Last Documented On 2 8:58PM ; [facility] Stroke / Seizures 08/19/2022 Last Documented On 2 8:58PM ; [facility] Review of Systems Includes: Review [...] Active Last Documented On 2 1:14PM ; [facility] Keflex Allergy Skin Rashes / Eruption of skin 2 Active Last Documented On 2 1:14PM ; [facility] HYDROcodone-Acetaminophen Allergy Shortness of Breath / Dy spnea 06/16/2022 Active Last Documented On 2 1:14PM ; [facility], [facility] Encounters Encounter Provider Location Date Check-In Time Check- Out Time Diagnosis Post Op Kj Malone MD [facility] 2 12:28PM 1:47PM Insurance Includes: Active Insurance Policies Plan Name Member ID Group # Subscriber Relationship Effect marybel Dates 1 - [facility] [id number] Nelia Silva Self 10/31/2021 - Unknown Clinical Notes Includes: Clinical Notes from this encounter No Clinical Notes Recorded
--- OUTSIDE RECORDS SUMMARY | 2025-08-01 12:55 | XMS_ITS | Clinical Summary ---
Author Organization [facility] , [facility] Address [address] [place] [address] Phone Care Team Providers Care Principal Administrative Clerk Name Role Phone Faisal GAN, Kj Unavailable [phone] Devorah Thompson APRN Unavailable [phone] Reason for Referral Date Encounter Description Provider Reason for Referral 06/16/22 Follow Up Kyung Walter PA-C Referr al To Physician Reason for Visit and Chief Complaint The Chief Complaint is: Left knee pain Problems Includes: Problems addressed during this encounter and other active Problems Current Visit Onset Date Resolved Date Provider Nitza solitario Status Joint Pain Left Knee 06/16/2022 Kyung diaz PA-C Active Last Documented On 2 2:51PM ; [facility] Plan of Treatment Instructions to patient No intervention and counseli fer on cessation of tobacco use Last Documented On 2 3:00PM ; [facility], [facility] Lose weight Last Documented On 3:00PM ; [facility], [facility] Assessments Includes: Assessments from this encounter Findings Assessment - Last Documented On 06/16/2022 3:40PM ; [facility] Primary left knee osteoarthritis, chronic, worsening - Last Documented On 06/16/2022 3:40PM ; [facility] Plan - Last Documented On 06/16/2022 3:40PM ; [facility], [facility] Treatment options were discussed with the patient, both surgical and nonsurgical and at this time she would like to have a steroid injection to help with pain relief. The risks, benefits and alternatives of intra-articular injection were discussed with the patient. Risk include infection, bleeding and transient hyperglycemia and atrophy at injection. No certain guarantees have been made, patients understand that responses can vary and multiple procedures may be necessary. They wish to proceed and verbal consent was obtained. - Last Documented On 06/16/2022 3:40PM ; [facility] RTC in 1 month to discuss surgical options with Dr. Malone - Last Documented On 06/16/2022 3:40PM ; [facility] Continue Tylenol and Voltaren gel - Last Documented On 06/16/2022 3:40PM ; [facility] Procedure - Last Documented On 06/16/2022 3:40PM ; [facility] The knee was prepped with alcohol and put in a flexed position. The intercondylar notch was palpated and ethyl chloride spray was used as topical anesthesia at the site of injection. A 22 gauge needle was gently introduced intra-articular from the anterolateral approach to get into the synovial cavity, 80 mg of Depo-Medrol and 3 cc of 1% plain lidocaine were injected. The needle was carefully withdrawn and a Band-Aid was applied. Patient tolerated the procedure without any complications. - Last Documented On 06/16/2022 3:40PM ; [facility] Instructions Includes: Instructions from this encounter Instructions to patient No intervention and counseli fer on cessation of tobacco use Last Documented On 2 3:00PM ; [facility] Lose weight Last Documented On 2 3:00PM ; [facility] Medical Equipment - Implanted Devices Includes: Current Devices No Medical Equipment Recorded Medications Includes: Medications discussed during this encounter and other current Medications Current Medications (continue as prescribed) Topiramate ER 100 MG Oral Capsule Extended Release 24 Hour 06/16/2022 Provider: Diagnosis: Last Documented On 2 3:28PM By Fidelia Henao ; [facility] Monjuvi 200 MG Intravenous Solution Reconstituted 05/31 Provider: Diagnosis: Last Documented On 2 3:28PM By Fidelia Henao ; [facility] [place] Thyroid 120 MG Oral Tablet 06/03/2022 Provide r: Devorah Thompson APRN Diagnosis: Last Documented On 2 2:51PM By Fidelia Henao ; [facility], [facility] Rosuvastatin Calcium 5 MG Oral Tablet 05/21/2022 Pro vider: Devorah Thompson BENJAMIN Diagnosis: Last Documented On 2 2:51PM By Fidelia Henao ; [facility], [facility] Past Medications on file Ibuprofen 800 MG Oral Tablet 08/19/2022 - 11/17/2022 P rovider: Kyung Walter PA-C Diagnosis: 1 tab PO TID prn for pain Last Documented On 2 1:33PM By Kyung Walter ; [facility], [facility] Acetaminophen-Codeine #3 300 -30 MG Oral Tablet 08/19/2022 - 08/29/2022 Provider: Kj Sapp Diagnosis: 1 tab PO TID prn for pain Last Documented On 2 1:49PM By Kj Malone ; [facility], [facility] Medications Administered Includes: Administered Medications from this encounter No Administered Medications Recorded Vital Signs Includes: Vital Signs from this encounter Vital Name 06/16/2022 02:52P Blood Pressure Sitting (mmHg) 175/104 Pulse Rate-Sitting (bpm) 70 Height (in) 65 Weight (lb) 290 Body Mass Index (kg/m2) 48.3 Body Surface Area (m2) 2.3 Note: TMR Last Documented: On 06/16/2022 2:59PM ; [facility], [facility] Results Includes: Results discussed during this encounter No Results Recorded For Specified Dates History of Present Illness Includes: History of Present Illness from this encounter JESSIKA Silva is a 57 year old female. - Symptoms POPPING, GRINDING, OTHER BETTER--NOT DOING ANYTHING WORSE--STAIRS. - Problem list reviewed - Medication list reviewed - Sharp pain Symptoms - Pain is dull, aching - Patient pain level from 1-10: 5 - Yes, previous treatment. - History of Injections DEPO MEDROL, DUROLANE This is a 57-year-old female who presents today for follow-up of her left knee pain. She continues to complain of moderate to severe pain along the medial left knee that is worse over the past month. She describes the pain as sharp in nature, rating it a 5 out of 10 today. Her pain is worse with increased activity or ambulating for extended periods of time. She notes intermittent swelling. She is status post left knee Durolane injection on 03/10/2022, noting mild relief of her symptoms. Her pain has been pretty constant. She continues on diclofenac gel and Tylenol with mild relief. She had previous Depo-Medrol injection on 02/08/2022 noting 1 month relief. Social History Description Last Updated Caffeine use 06/16/2022 Last Documented On 2 3:40PM ; [facility], [facility] Recent change in diet 06/16/2022 Last Documented On 2 3:40PM ; [facility], [facility] Not a current smoker. 06/16/2022 Last Documented On 2 3:40PM ; [facility], [facility] Not exercising regularly 06/16/2022 Last Documented On 2 3:40PM ; [facility], [facility] Not using alcohol 06/16/2022 Last Documented On 2 3:40PM ; [facility] Not using drugs 06/16/2022 Last Documented On 2 3:40PM ; [facility], [facility] Non-smoker 06/16/2022 Last Documented On 2 3:40PM ; [facility], [facility] Not a smoker 06/16/2022 Last Documented On 2 3:40PM ; [facility] Smoking Status Unknown Procedures and Surgical History Includes: Procedures from this encounter Procedures Code Diagnosis Performing Provider Service L ocation Service Date no intervention and counseling on cessation of tobacco use 4000F Last Documented On 2 3:00PM ; [facility], [facility] use of tobacco assessment performed 1000F Last Documented On 2 3:00PM ; [facility], [facility] no influenza immunization patient refuse d Last Documented On 2 3:31PM ; [facility], [facility] patient not screened for future fall risk 3288F Last Documented On 2 3:00PM ; [facility], [facility] follow-up visit in one month with PCP fo r elevated BP Last Documented On 2 3:00PM ; [facility], [facility] referral to physician Last Documented On 2 3:00PM ; [facility] an X-ray was performed 47952 Last Documented On 2 3:18PM ; [facility] an MRI was performed [id number] Last Documented On 2 3:30PM ; [facility] Medical History Includes: Medical History addressed during this encounter Description Last Updated FIBROMYALGIA 06/16/2022 Last Documented On 2 3:40PM ; [facility] No recent immunization for flu 2 Last Documented On 2 3:40PM ; [facility] No recent immunization for pneumococcal pneumonia 06/16/2022 Last Documented On 2 3:40PM ; [facility] Past Surgical History: . TUOR R EMOVAL 06/16/2022 Last Documented On 2 3:40PM ; [facility] Family History Includes: Family History addressed during this encounter Description Last Updated Family history of cancer 06/16/2022 Last Documented On 2 3:40PM ; [facility] Family history of heart disease 06/16/20 22 Last Documented On 2 3:40PM ; [facility] Stroke / Seizures 06/16/2022 Last Documented On 2 3:40PM ; [facility] Diabetes mellitus 06/16/2022 Last Documented On 2 3:40PM ; [facility] Family history of systemic hypertension 06/16/2022 Last Documented On 2 3:40PM ; [facility] Review of Systems Includes: Review of Systems [...] Exam Includes: Physical Exam from this encounter Immunizations Includes: Immunizations addressed during this encounter Vaccine Dose # Date Site Reaction(s) Status Source Influenza 1 07/31/2021 Complete (Reported) Patient Last Documented On 2 3:33PM ; [facility], [facility] PCV (Pneumovax 23) 1 07/31/2021 Complete ( Reported) Patient Last Documented On 2 3:33PM ; [facility], [facility] Allergies Includes: Active Allergies Substance Type Reaction Onset Date Resolved Date Statu s Percocet Allergy 06/16/2022 Active Last Documented On 2 1:14PM ; [facility], [facility] Keflex Allergy Skin Rashes / Eruption of skin 2 Active Last Documented On 2 1:14PM ; [facility], [facility] HYDROcodone-Acetaminophen Allergy Shortness of Breath / Dy spnea 06/16/2022 Active Last Documented On 2 1:14PM ; [facility], [facility] Encounters Encounter Provider Location Date Check-In Time Check- Out Time Diagnosis Follow Up Kyung Walter PA-C [facility] 2 2:48PM 3:37PM Insurance Includes: Active Insurance Policies Plan Name Member ID Group # Subscriber Relationship Effect marybel Dates 1 - [facility] [id number] Nelia Silva Self 10/31/2021 - Unknown Clinical Notes Includes: Clinical Notes from this encounter No Clinical Notes Recorded
--- OUTSIDE RECORDS SUMMARY | 2025-08-01 12:55 | XMS_ITS ---
Author Organization [facility] , [facility] Address [address] [place] [address] Phone Care Team Providers Care Seasonal Recruiter Name Role Phone Faisal GAN, Kj Unavailable [phone] Devorah Thompson APRN Unavailable [phone] Reason for Referral Date Encounter Description Provider Reason for Referral 08/19/22 Post Op Kj Malone MD Referral T o Physician 07/15/22 Follow Up Kj Malone MD Referral T o Physician 06/16/22 Follow Up Kyung Walter PA-C Referr al To Physician Problems Includes: Active, inactive, and resolved Problems All Visits Onset Date Resolved Date Provider Condition S tatus Joint Pain Left Knee 06/16/2022 Kyung diaz PA-C Active Last Documented On 2 2:51PM ; [facility], [facility] Plan of Treatment Instructions to patient No intervention and counseli ng on cessation of tobacco use Last Documented On 2 1:15PM ; [facility], [facility] Lose weight Last Documented On 2 1:15PM ; [facility], [facility] No intervention and counseli ng on cessation of tobacco use Last Documented On 2 12:59PM ; [facility], [facility] Lose weight Last Documented On 2 12:59PM ; [facility], [facility] No intervention and counseli ng on cessation of tobacco use Last Documented On 2 11:07AM ; [facility], [facility] Lose weight Last Documented On 2 11:07AM ; [facility], [facility] No intervention and counseli ng on cessation of tobacco use Last Documented On 2 3:00PM ; [facility] Lose weight Last Documented On 2 3:00PM ; [facility], [facility] Assessments Includes: Assessments for all patient encounters No Assessments Recorded Instructions Includes: Instructions for all patient encounters Instructions to patient No intervention and counseli ng on cessation of tobacco use Last Documented On 2 1:15PM ; [facility] Lose weight Last Documented On 2 1:15PM ; [facility] No intervention and counseli ng on cessation of tobacco use Last Documented On 2 12:59PM ; [facility] Lose weight Last Documented On 2 12:59PM ; [facility] No intervention and counseli ng on cessation of tobacco use Last Documented On 2 11:07AM ; [facility] Lose weight Last Documented On 2 11:07AM ; [facility], [facility] No intervention and counseli ng on cessation of tobacco use Last Documented On 2 3:00PM ; [facility] Lose weight Last Documented On 2 3:00PM ; [facility], [facility] Medical Equipment - Implanted Devices Includes: Current and historical Devices No Medical Equipment Recorded Medications Includes: Current and historical Medications Current Medications (continue as prescribed) Topiramate ER 100 MG Oral Capsule Extended Release 24 Hour 06/16/2022 Provider: Diagnosis: Last Documented On 2 3:28PM By Fidelia Henao ; [facility], [facility] Monjuvi 200 MG Intravenous Solution Reconstituted 05/31 Provider: Diagnosis: Last Documented On 2 3:28PM By Fidelia Henao ; [facility], [facility] Barney Thyroid 120 MG Oral Tablet 06/03/2022 Provide r: Devorah Thompson APRN Diagnosis: Last Documented On 2 2:51PM By Fidelia Henao ; [facility], [facility] Rosuvastatin Calcium 5 MG Oral Tablet 05/21/2022 Pro vider: Devorah Thompson APRN Diagnosis: Last Documented On 2 2:51PM By Fidelia Henao ; [facility], [facility] Past Medications on file Ibuprofen 800 MG Oral Tablet 08/19/2022 - 11/17/2022 Eloy lee: Kyung Walter PA-C Diagnosis: 1 tab PO TID prn for pain Last Documented On 2 1:33PM By Kyung Walter ; [facility], [facility] Acetaminophen-Codeine #3 300 -30 MG Oral Tablet 08/19/2022 - 08/29/2022 Provider: Kj Sapp Diagnosis: 1 tab PO TID prn for pain Last Documented On 2 1:49PM By Kj Malone ; [facility], [facility] Medications Administered Includes: Administered Medications in patient's chart No Administered Medications Recorded Results Includes: Results from 08/01/2024 through 08/01/2025 No Results Recorded For Specified Dates History of Present Illness History of Present Illness not supported for this document type No History of Present Illness Recorded Social History Description Last Updated Caffeine use 09/08/2022 Last Documented On 2 5:52AM ; [facility] Non-smoker 09/08/2022 Last Documented On 2 5:52AM ; [facility] Not a current smoker. 09/08/2022 Last Documented On 2 5:52AM ; [facility] Not a smoker 09/08/2022 Last Documented On 2 5:52AM ; [facility] Not exercising regularly 09/08/2022 Last Documented On 2 5:52AM ; [facility] Not using alcohol 09/08/2022 Last Documented On 2 5:52AM ; [facility] Not using drugs 09/08/2022 Last Documented On 2 5:52AM ; [facility] Recent change in diet 09/08/2022 Last Documented On 2 5:52AM ; [facility] Tobacco non-user 09/08/2022 Last Documented On 2 5:52AM ; [facility] Smoking Status Unknown Medical History Includes: Medical History in patient's chart Description Last Updated FIBROMYALGIA 09/08/2022 Last Documented On 2 5:52AM ; [facility] No recent immunization for flu 2 Last Documented On 2 5:52AM ; [facility] No recent immunization for pneumococcal pneumonia 09/08/2022 Last Documented On 2 5:52AM ; [facility], [facility] Past Surgical History: . TUOR R EMOVAL 09/08/2022 Last Documented On 2 5:52AM ; [facility], [facility] Family History Includes: Family History in patient's chart Description Last Updated Diabetes mellitus 09/08/2022 Last Documented On 2 5:52AM ; [facility] Family history of cancer 09/08/2022 Last Documented On 2 5:52AM ; [facility] Family history of heart disease 09/08/20 22 Last Documented On 2 5:52AM ; [facility] Family history of systemic hypertension 09/08/2022 Last Documented On 2 5:52AM ; [facility] Stroke / Seizures 09/08/2022 Last Documented On 2 5:52AM ; [facility] Review of Systems Review of Systems not supported for this document type No Review of Systems Recorded Mental Status Description No anxiety Functional Status No Functional Status Recorded Physical Exam Physical Exam not supported for this document type No Physical Exam Recorded Immunizations Includes: Immunizations in patient's chart Vaccine Dose # Date Site Reaction(s) Status Source Influenza 1 07/31/2021 Complete (Reported) Patient Last Documented On 2 3:33PM ; [facility] PCV (Pneumovax 23) 1 07/31/2021 Complete ( Reported) Patient Last Documented On 2 3:33PM ; [facility], [facility] Allergies Includes: Active, inactive, and resolved Allergies Substance Type Reaction Onset Date Resolved Date Statu s Percocet Allergy 06/16/2022 Active Last Documented On 2 1:14PM ; [facility] Keflex Allergy Skin Rashes / Eruption of skin 2 Active Last Documented On 2 1:14PM ; [facility] HYDROcodone-Acetaminophen Allergy Shortness of Breath / Dy spnea 06/16/2022 Active Last Documented On 2 1:14PM ; [facility], [facility] Insurance Includes: Active Insurance Policies Plan Name Member ID Group # Subscriber Relationship Effect marybel Dates 1 - [facility] [id number] Nelia Silva Self 10/31/2021 - Unknown Clinical Notes Includes: Signed Clinical Notes starting from 10/14/2022 No Clinical Notes Recorded
--- OUTSIDE RECORDS SUMMARY | 2025-08-01 12:55 | XMS_ITS | Data Portability ---
Author Organization Count includes the [facility] Address [address] [place] [address] Care Team Providers Care New Accounts Representative Name Role Phone DEVORAH MIGUEL Primary Care Provider [phone] ANTOINETTE HALL Referring Provider TAMERA DUARTE Referring Provider Assessment Encounter Date Assessment Date Assessment LastModified by Organization Details LastModified Time 05/13/2025 05/13/2025 Risks, benefits, and alternatives of the medication have been discussed with the patient. She would like to move forward with a prescription of wegovy. [email or web address] Not available 05/13/2025 14:40:10 08/01/2025 08/01/2025 Risks, benefits, and alternatives of [...] Not available Lab drug screen, urine 2024 025 [facility], [address], [place], [address], 08/01/2025 09:42:12 CBC w/ auto diff 2024 025 [facility], [address], [place] [address], [place], [address], 06/21/2025 08:10:22 lipid panel, serum 2024 025 [facility], [address], [place], [place], [address], 05/14/2025 11:08:23 vitamin D, 25-hydrox y, total, serum 2024 025 [facility], [address], [place], [place], [address], 05/14/2025 11:08:23 TSH + free T4, serum 2024 025 [facility], [address], [place], [place], [address], 05/14/2025 11:08:20 CMP, serum or plasma 2024 025 [facility], [address], [place], [place], [address], 05/14/2025 11:08:22 CBC w/ auto diff 2024 025 [facility], [address], [place], [place], [address], 05/14/2025 11:08:21 Referral None recorded. Procedures None recorded. Surgeries None recorded. Imaging MRI, lumbar spine, w/o contrast 2024 [facility] [address], [place], [address], 07/25/2025 11:02:57 Medication Orders phentermi ne 37.5 mg tablet 2024 025 [facility], [address] [facility], [place], [address], 08/01/2025 09:30:52 Wegovy 0.5 mg/0.5 mL subcutane ous pen injector [address], [address], 08/01/2025 09:30:51 Wegovy 0.25 mg/0.5 mL subcutane ous pen injector [address], [address], 08/01/2025 08:57:27 phentermi ne 37.5 mg tablet 2024 025 [facility], [address] [place] [address], [address], 08/01/2025 08:59:42 Patient TargetsNo targets recorded. Patient Instructions Encounter Date Encounter Id Patient Instructions Last Modified By Organization Details Last Modified Time 05/13/2025 [id number] Treament Plan: Patient will start medication as directed. Patient will continue exercise, watch calorie intake, and follow up for weight check in 1 month. [email or web address] Not available 05/13/2025 13:58:33 08/01/2025 [id number] Treament Plan: Patient will start medication as directed. Patient will continue exercise, watch calorie intake, and follow up for weight check in 1 month. bstears Not available 08/01/2025 08:46:18 Reason for Referral None Reported. Results Created Date Observation Date Name Description Value Unit Range Abnormal Flag Note LastModifiedBy Organization Detail LastModifiedTime 05/13/2005/14/2025 TSH+F REE T4 TSH 1.980 uIU/m L 0.450- 4.500 normal Not Available [facility] ([facility]) [address] [place], [address], 05/14/2025 11:08:20 05/13/2005/14/2025 TSH+F REE T4 T4,free(dire ct) 1.33 NG/dL 0.82-1 .77 normal Not Available [facility] ([facility]) [address] [facility], [place], [address], 05/14/2025 11:08:20 05/13/20 25 05/14/2025 CBC WITH DIFFE RENTI AL/PL ATELE T WBC 3.2 x10e3 /uL 3.4-10 .8 below low normal Not Available [facility] ([facility]) [address] [facility], [place], [address], 05/14/2025 11:08:21 05/13/20 25 05/14/2025 CBC WITH DIFFE RENTI AL/PL ATELE T RBC 4.90 x10e6 /uL 3.77-5 .28 normal Not Available [facility] ([facility]) [address] [facility], [place], [address], 05/14/2025 11:08:21 05/13/20 25 05/14/2025 CBC WITH DIFFE RENTI AL/PL ATELE T hemoglobin 14.2 g/dL 11.1-1 5.9 normal Not Available [facility] ([facility]) [address] [place], [address], 05/14/2025 11:08:21 05/13/20 25 05/14/2025 CBC WITH DIFFE RENTI AL/PL ATELE T hematocrit 43.7 % 34.0-4 6.6 normal Not Available [facility] ([facility]) [address] [place], [address], 05/14/2025 11:08:21 05/13/20 25 05/14/2025 CBC WITH DIFFE RENTI AL/PL ATELE T MCV 89 fL 79-97 normal Not Available [facility] ([facility]) [address] [place], [address], 05/14/2025 11:08:21 05/13/20 25 05/14/2025 CBC WITH DIFFE RENTI AL/PL ATELE T MCH 29.0 pg 26.6-3 3.0 normal Not Available [facility] ([facility]) [address] [facility], [place], [address], 05/14/2025 11:08:21 05/13/20 25 05/14/2025 CBC WITH DIFFE RENTI AL/PL ATELE T MCHC 32.5 g/dL 31.5-3 5.7 normal Not Available [facility] ([facility]) [address] [facility], [place], [address], 05/14/2025 11:08:21 05/13/20 25 05/14/2025 CBC WITH DIFFE RENTI AL/PL ATELE T RDW 13.9 % 11.7-1 5.4 Not Available [facility] ([facility]) [address] [facility], [place], [address], 05/14/2025 11:08:21 05/13/20 25 05/14/2025 CBC WITH DIFFE RENTI AL/PL ATELE T platelets 156 x10e3 /uL 150-45 0 normal Not Available [facility] ([facility]) [address] [facility], [place], [address], 05/14/2025 11:08:21 05/13/20 25 05/14/2025 CBC WITH DIFFE RENTI AL/PL ATELE T neutrophils 59 % not estab. normal Not Available [facility] ([facility]) [address] [place], [address], 05/14/2025 11:08:21 05/13/20 25 05/14/2025 CBC WITH DIFFE RENTI AL/PL ATELE T lymphs 30 % not estab. normal Not Available [facility] ([facility]) [address] [place], [address], 05/14/2025 11:08:21 05/13/20 25 05/14/2025 CBC WITH DIFFE RENTI AL/PL ATELE T monocytes 9 % not estab. normal Not Available [facility] ([facility]) [address] [place], [address], 05/14/2025 11:08:21 05/13/20 25 05/14/2025 CBC WITH DIFFE RENTI AL/PL ATELE T eos 1 % not estab. normal Not Available [facility] ([facility]) [address] [place], [address], 05/14/2025 11:08:21 05/13/20 25 05/14/2025 CBC WITH DIFFE RENTI AL/PL ATELE T basos 1 % not estab. normal Not Available [facility] ([facility]) [address] [place], [address], 05/14/2025 11:08:21 05/13/20 25 05/14/2025 CBC WITH DIFFE RENTI AL/PL ATELE T immature cells SKID MAN Not Available [facility] ([facility]) [address] [place], [address], 05/14/2025 11:08:21 05/13/20 25 05/14/2025 CBC WITH DIFFE RENTI AL/PL ATELE T neutrophils (absolute) 1.9 x10e3 /uL 1.4-7. 0 normal Not Available [facility] ([facility]) [address] [place], [address], 05/14/2025 11:08:21 05/13/20 25 05/14/2025 CBC WITH DIFFE RENTI AL/PL ATELE T lymphs (absolute) 1.0 x10e3 /uL 0.7-3. 1 normal Not Available [facility] ([facility]) [address] [place], [address], 05/14/2025 11:08:21 05/13/20 25 05/14/2025 CBC WITH DIFFE RENTI AL/PL ATELE T monocytes(ab solute) 0.3 x10e3 /uL 0.1-0. 9 normal Not Available [facility] ([facility]) [address] [place], [address], 05/14/2025 11:08:21 05/13/20 25 05/14/2025 CBC WITH DIFFE RENTI AL/PL ATELE T eos (absolute) 0.0 x10e3 /uL 0.0-0. 4 normal Not Available [facility] ([facility]) [address] [facility], [place], [address], 05/14/2025 11:08:21 05/13/20 25 05/14/2025 CBC WITH DIFFE RENTI AL/PL ATELE T baso (absolute) 0.0 x10e3 /uL 0.0-0. 2 normal Not Available [facility] ([facility]) [address] [facility], [place], [address], 05/14/2025 11:08:21 05/13/20 25 05/14/2025 CBC WITH DIFFE RENTI AL/PL ATELE T immature granulocytes 0 % not estab. Not Available [facility] ([facility]) [address] [facility], [place], [address], 05/14/2025 11:08:21 05/13/2005/14/2025 CBC WITH DIFFE RENTI AL/PL ATELE T immature grans (abs) 0.0 x10e3 /uL 0.0-0. 1 Not Available [facility] ([facility]) [address] [place], [address], 05/14/2025 11:08:21 05/13/2005/14/2025 CBC WITH DIFFE RENTI AL/PL ATELE T NRBC SKID MAN Not Available [facility] ([facility]) [address] [place], [address], 05/14/2025 11:08:21 05/13/20 25 05/14/2025 CBC WITH DIFFE RENTI AL/PL ATELE T hematology comments: SKID MAN Not Available [facility] ([facility]) [address] [place], [address], 05/14/2025 11:08:21 05/13/20 25 05/14/2025 COMP. METAB OLIC PANEL (14) glucose 75 mg/dL 70-99 normal Not Available [facility] ([facility]) [address] [facility], [place], [address], 05/14/2025 11:08:22 05/13/20 25 05/14/2025 COMP. METAB OLIC PANEL (14) BUN 13 mg/dL 6-24 normal Not Available [facility] ([facility]) [address] [facility], [place], [address], 05/14/2025 11:08:22 05/13/20 25 05/14/2025 COMP. METAB OLIC PANEL (14) creatinine 0.86 mg/dL 0.57-1 .00 normal Not Available [facility] ([facility]) [address] [facility], [place], [address], 05/14/2025 11:08:22 05/13/20 25 05/14/2025 COMP. METAB OLIC PANEL (14) eGFR 78 mL/mi n/1.7 3 >59 normal Not Available [facility] ([facility]) [address] [facility], [place], [address], 05/14/2025 11:08:22 05/13/20 25 05/14/2025 COMP. METAB OLIC PANEL (14) BUN/creatini ne ratio 15 9-23 normal Not Available [facility] ([facility]) [address] [place], [address], 05/14/2025 11:08:22 05/13/20 25 05/14/2025 COMP. METAB OLIC PANEL (14) sodium 138 mmol/ L 134-14 4 normal Not Available [facility] ([facility]) [address] [place], [address], 05/14/2025 11:08:22 05/13/20 25 05/14/2025 COMP. METAB OLIC PANEL (14) potassium 3.9 mmol/ L 3.5-5. 2 normal Not Available [facility] ([facility]) [address] [place], [address], 05/14/2025 11:08:22 05/13/20 25 05/14/2025 COMP. METAB OLIC PANEL (14) chloride 105 mmol/ L 96-106 normal Not Available [facility] ([facility]) [address] [place], [address], 05/14/2025 11:08:22 05/13/20 25 05/14/2025 COMP. METAB OLIC PANEL (14) carbon dioxide, total 21 mmol/ L 20-29 normal Not Available [facility] ([facility]) [address] [facility], [place], [address], 05/14/2025 11:08:22 05/13/20 25 05/14/2025 COMP. METAB OLIC PANEL (14) calcium 9.1 mg/dL 8.7-10 .2 normal Not Available [facility] ([facility]) [address] [place], [address], 05/14/2025 11:08:22 05/13/20 25 05/14/2025 COMP. METAB OLIC PANEL (14) protein, total 6.3 g/dL 6.0-8. 5 normal Not Available [facility] ([facility]) [address] [place], [address], 05/14/2025 11:08:22 05/13/20 25 05/14/2025 COMP. METAB OLIC PANEL (14) albumin 4.1 g/dL 3.8-4. 9 normal Not Available [facility] ([facility]) [address] [place], [address], 05/14/2025 11:08:22 05/13/20 25 05/14/2025 COMP. METAB OLIC PANEL (14) globulin, total 2.2 g/dL 1.5-4. 5 Not Available [facility] ([facility]) [address] [place], [address], 05/14/2025 11:08:22 05/13/20 25 05/14/2025 COMP. METAB OLIC PANEL (14) bilirubin, total 0.6 mg/dL 0.0-1. 2 normal Not Available [facility] ([facility]) [address] [place], [address], 05/14/2025 11:08:22 05/13/20 25 05/14/2025 COMP. METAB OLIC PANEL (14) alkaline phosphatase 90 IU/L 44-121 normal Not Available [facility] ([facility]) [address] [place], [address], 05/14/2025 11:08:22 05/13/20 25 05/14/2025 COMP. METAB OLIC PANEL (14) AST (SGOT) 38 IU/L 0-40 normal Not Available [facility] ([facility]) [address] [place], [address], 05/14/2025 11:08:22 05/13/20 25 05/14/2025 COMP. METAB OLIC PANEL (14) ALT (SGPT) 40 IU/L 0-32 above high normal Not Available [facility] ([facility]) [address] [place], [address], 05/14/2025 11:08:22 05/13/20 25 05/14/2025 LIPID PANEL cholesterol, total 199 mg/dL 100-19 9 normal Not Available [facility] ([facility]) [address] [place], [address], 05/14/2025 11:08:23 05/13/20 25 05/14/2025 LIPID PANEL triglyceride s 111 mg/dL 0-149 normal Not Available [facility] ([facility]) [address] [place], [address], 05/14/2025 11:08:23 05/13/20 25 05/14/2025 LIPID PANEL HDL cholesterol 51 mg/dL >39 normal Not Available [facility] ([facility]) [address] [facility], [place], [address], 05/14/2025 11:08:23 05/13/20 25 05/14/2025 LIPID PANEL VLDL cholesterol henrique 20 mg/dL 5-40 Not Available [facility] ([facility]) [address] [facility], [place], [address], 05/14/2025 11:08:23 05/13/20 25 05/14/2025 LIPID PANEL LDL chol calc ([facility]) 128 mg/dL 0-99 above high normal Not Available [facility] ([facility]) [address] [place], [address], 05/14/2025 11:08:23 05/13/20 25 05/14/2025 LIPID PANEL LDL calc comment: SKID MAN Not Available [facility] ([facility]) [address] [facility], [place], [address], 05/14/2025 11:08:23 05/13/20 25 05/14/2025 VITAM IN D, 25-HY DROXY vitamin D, 25-hydroxy 49.6 NG/mL 30.0-1 00.0 Vitam in D defic iency has been defin ed by the Insti tute of Medic ine and an Endoc rine Socie ty pract ice guide line as a level of serum 25-OH vitam in D less than 20 ng/mL (1,2) . The Endoc rine Socie ty went on to furth er defin e vitam in D insuf ficie ncy as a level betwe en 21 and 29 ng/mL (2). 1. IOM (Inst itute of Medic ine). 2010. Dieta ry refer ence federico es for calci um and D. Anusha gonzalez [place]: The Natio nal [facility] Press . 2. Holic k [place], Doc cullen [place], [place] off-F errar i SANTIAGO, et al. Evalu ation , treat ment, and preve ntion of vitam in D defic iency : an Endoc rine Socie ty clini henrique pract ice guide line. JCEM. 2010; 96(7) :1911 -30. Not Available [facility] ([facility]) [address] [place], [address], 05/14/2025 11:08:23 06/20/20 25 06/21/2025 CBC WITH DIFFE RENTI AL/PL ATELE T WBC 5.3 x10e3 /uL 3.4-10 .8 normal Not Available [facility] ([facility]) [address] [place], [address], 06/21/2025 08:10:22 06/20/20 25 06/21/2025 CBC WITH DIFFE RENTI AL/PL ATELE T RBC 5.13 x10e6 /uL 3.77-5 .28 normal Not Available [facility] ([facility]) [address] [place], [address], 06/21/2025 08:10:22 06/20/20 25 06/21/2025 CBC WITH DIFFE RENTI AL/PL ATELE T hemoglobin 15.1 g/dL 11.1-1 5.9 normal Not Available [facility] ([facility]) [address] [place], [address], 06/21/2025 08:10:22 06/20/20 25 06/21/2025 CBC WITH DIFFE RENTI AL/PL ATELE T hematocrit 47.0 % 34.0-4 6.6 above high normal Not Available [facility] ([facility]) [address] [place], [address], 06/21/2025 08:10:22 06/20/20 25 06/21/2025 CBC WITH DIFFE RENTI AL/PL ATELE T MCV 92 fL 79-97 normal Not Available [facility] ([facility]) [address] [facility], [place], [address], 06/21/2025 08:10:22 06/20/20 25 06/21/2025 CBC WITH DIFFE RENTI AL/PL ATELE T MCH 29.4 pg 26.6-3 3.0 normal Not Available [facility] ([facility]) [address] [facility], [place], [address], 06/21/2025 08:10:22 06/20/20 25 06/21/2025 CBC WITH DIFFE RENTI AL/PL ATELE T MCHC 32.1 g/dL 31.5-3 5.7 normal Not Available [facility] ([facility]) [address] [facility], [place], [address], 06/21/2025 08:10:22 06/20/20 25 06/21/2025 CBC WITH DIFFE RENTI AL/PL ATELE T RDW 13.9 % 11.7-1 5.4 Not Available [facility] ([facility]) [address] [facility], [place], [address], 06/21/2025 08:10:22 06/20/20 25 06/21/2025 CBC WITH DIFFE RENTI AL/PL ATELE T platelets 209 x10e3 /uL 150-45 0 normal Not Available [facility] ([facility]) [address] [place], [address], 06/21/2025 08:10:22 06/20/20 25 06/21/2025 CBC WITH DIFFE RENTI AL/PL ATELE T neutrophils 78 % not estab. normal Not Available [facility] ([facility]) [address] [facility], [place], [address], 06/21/2025 08:10:22 06/20/20 25 06/21/2025 CBC WITH DIFFE RENTI AL/PL ATELE T lymphs 13 % not estab. normal Not Available [facility] ([facility]) [address] [place], [address], 06/21/2025 08:10:22 06/20/20 25 06/21/2025 CBC WITH DIFFE RENTI AL/PL ATELE T monocytes 6 % not estab. normal Not Available [facility] ([facility]) [address] [place], [address], 06/21/2025 08:10:22 06/20/20 25 06/21/2025 CBC WITH DIFFE RENTI AL/PL ATELE T eos 2 % not estab. normal Not Available [facility] ([facility]) [address] [place], [address], 06/21/2025 08:10:22 06/20/20 25 06/21/2025 CBC WITH DIFFE RENTI AL/PL ATELE T basos 1 % not estab. normal Not Available [facility] ([facility]) [address] [place], [address], 06/21/2025 08:10:22 06/20/20 25 06/21/2025 CBC WITH DIFFE RENTI AL/PL ATELE T immature cells SKID MAN Not Available [facility] ([facility]) [address] [place], [address], 06/21/2025 08:10:22 06/20/20 25 06/21/2025 CBC WITH DIFFE RENTI AL/PL ATELE T neutrophils (absolute) 4.2 x10e3 /uL 1.4-7. 0 normal Not Available [facility] ([facility]) [address] [place], [address], 06/21/2025 08:10:22 06/20/20 25 06/21/2025 CBC WITH DIFFE RENTI AL/PL ATELE T lymphs (absolute) 0.7 x10e3 /uL 0.7-3. 1 normal Not Available [facility] ([facility]) [address] [place], [address], 06/21/2025 08:10:22 06/20/20 25 06/21/2025 CBC WITH DIFFE RENTI AL/PL ATELE T monocytes(ab solute) 0.3 x10e3 /uL 0.1-0. 9 normal Not Available [facility] ([facility]) [address] [facility], [place], [address], 06/21/2025 08:10:22 06/20/20 25 06/21/2025 CBC WITH DIFFE RENTI AL/PL ATELE T eos (absolute) 0.1 x10e3 /uL 0.0-0. 4 normal Not Available [facility] ([facility]) [address] [facility], [place], [address], 06/21/2025 08:10:22 06/20/20 25 06/21/2025 CBC WITH DIFFE RENTI AL/PL ATELE T baso (absolute) 0.0 x10e3 /uL 0.0-0. 2 normal Not Available [facility] ([facility]) [address] [facility], [place], [address], 06/21/2025 08:10:22 06/20/20 25 06/21/2025 CBC WITH DIFFE RENTI AL/PL ATELE T immature granulocytes 0 % not estab. Not Available [facility] ([facility]) [address] [facility], [place], [address], 06/21/2025 08:10:22 06/20/20 25 06/21/2025 CBC WITH DIFFE RENTI AL/PL ATELE T immature grans (abs) 0.0 x10e3 /uL 0.0-0. 1 Not Available [facility] ([facility]) [address] [facility], [place], [address], 06/21/2025 08:10:22 06/20/20 25 06/21/2025 CBC WITH DIFFE RENTI AL/PL ATELE T NRBC SKID MAN Not Available [facility] ([facility]) [address], [place], [address], 06/21/2025 08:10:22 06/20/20 25 06/21/2025 CBC WITH DIFFE RENTI AL/PL ATELE T hematology comments: SKID MAN Not Available [facility] ([facility]) [address] [facility], [place], [address], 06/21/2025 08:10:22 08/01/20 25 08/01/2025 drug scree n, urine AMP negati ve Not Available [address], [address], 08/01/2025 09:30:23 08/01/20 25 08/01/2025 drug scree n, urine BAR negati ve Not Available [address], [address], 08/01/2025 09:30:23 08/01/20 25 08/01/2025 drug scree n, urine BUP negati ve Not Available [address], [address], 08/01/2025 09:30:23 08/01/20 25 08/01/2025 drug scree n, urine BZO negati ve Not Available [address], [address], 08/01/2025 09:30:23 08/01/20 25 08/01/2025 drug scree n, urine LADAN negati ve Not Available [address], [address], 08/01/2025 09:30:23 08/01/20 25 08/01/2025 drug scree n, urine FTY negati ve Not Available [address], [address], 08/01/2025 09:30:23 08/01/2008/01/2025 drug scree n, urine MDMA negati ve Not Available [address], [address], 08/01/2025 09:30:23 08/01/2008/01/2025 drug scree n, urine MET negati ve Not Available [address], [address], 08/01/2025 09:30:23 08/01/2008/01/2025 drug scree n, urine MOP negati ve Not Available [address], [address], 08/01/2025 09:30:23 08/01/2008/01/2025 drug scree n, urine MTD negati ve Not Available [address], [address], 08/01/2025 09:30:23 08/01/2008/01/2025 drug scree n, urine OXY negati ve Not Available [address], [address], 08/01/2025 09:30:23 08/01/2008/01/2025 drug scree n, urine PCP negati ve Not Available [address], [address], 08/01/2025 09:30:23 08/01/2008/01/2025 drug scree n, urine TCA negati ve Not Available [address], [address], 08/01/2025 09:30:23 08/01/20 25 08/01/2025 drug scree n, urine THC negati ve Not Available [address], [place], [address], 08/01/2025 09:30:23 Result Notes None recorded. Problems Name Problem SNOMED Code Status Onset Date Resolution Date Notes Provider Name and Address Organization Details Recorded Time Hyperlipi demia 32778403 Active Maribel Sorto null, [place] - [facility] 16:18:08 Mass of left ovary 470981677938 40008 Active Maribel Sorto null, [place] - [facility] 16:18:08 Bradycard ia 53045448 Active Maribel Sorto null, [place] - [facility] 16:18:08 Fatigue 38922393 Active Maribel Sorto null, [place] - [facility] 16:18:09 Hypothyro idism 87664597 Active 2015 Maribel Sorto null, [place] - [facility] 16:18:08 Fibromyal lottie 321390931 Active 2015 Maribelspike Sorto null, [place] - [facility] 16:18:08 Colitis 56219407 Active 2015 Maribel Sorto null, [place] - [facility] 16:18:09 Chronic back pain 133943423 Active 2015 Maribel Sorto null, [place] - [facility] 16:18:08 Pain of hip region 64807332 Active 2015 Maribel Sorto null, [place] - [facility] 16:18:08 Pelvic mass 65680909 Active 2017 Maribel Sorto null, [place] - [facility] 16:18:09 Granuloma annulare 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 2019 Maribel Sorto null, [place] - [facility] 16:18:09 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 Procedures Surgical History Date Name Laterality Status Provider Name and Address Organization Details Recorded Time 024 Date of Last Mammogram completed Smita Boswell [place] - [facility] 08/01/2025 08:47:51 023 Medication Reconcilliation completed Maribel Sorto [place] - [facility] 04/26/2023 16:16:53 021 Date of Last Colonoscopy completed Kay Ulloa RN [address], [place], [address], [place] - [facility] 02/27/2021 11:38:04 021 Diastolic B/P 80-89 mm Hg completed Mally Garcia [place] - [facility] 12/24/2020 13:04:11 021 Systolic B/P 130-139 mm Hg completed Mally Garcia [place] - [facility] 12/24/2020 13:04:05 021 Diastolic B/P 80-89 mm Hg completed Gretchen Chery APRN [address], [place], [address], [place] - [facility] 11/04/2020 11:37:37 021 Systolic B/P 130-139 mm Hg completed Gretchen Chery APRN [address], [place], [address], [place] [facility] 11/04/2020 11:37:32 021 Date of Last Pap Smear completed Gretchen Chery, [employer]IST [address], [place], [address], [place] [facility] 11/07/2020 08:23:07 020 Systolic [...] [facility] 01/04/2018 12:55:06 Endoscopy completed Smita Abramss [place] - [facility] 01/04/2018 12:55:21 Bartholin Gland [...] Name and Address Organization Details Recorded Time [id number] acetamino phen medicatio n Not available Not available Not available 02/27/20212020 161 [facility] unkno wn Mally Radha null, [place] - [facility] 15:57:19 [id number] cephalexi n medicatio n rash mild Not available 02/27/20212022 2231 RxNorm Maribel Sorto null, [place] - [facility] 3 16:17:50 [id number] oxycodone medicatio n Not available Not available Not available 02/27/20212022 7804 RxNorm Maribel Sorto null, [place] - [facility] 3 16:17:50 [id number] hydrocodo ne Not available Not available Not available Not available 04/26/20232022 5489 Rx[facility] Maribel [place], [place] - [facility] 3 16:17:50 994997 propofol medicatio n Not available Not available Not available 04/26/20232022 8782 RxNorm Maribel [place], [place] - [facility] 3 16:17:50 35293 Keflex medicatio n Not available Not available Not available 08/06/2016200816 7 RxNorm React ion: rash, diarr hea; Not Available [facility] 6 09:12:29 37830 acetamino phen / oxycodone medicatio n Not available Not available Not available 08/06/2016201318 3 RxNorm React ion: incre ase in B/P diffi culty breat elizabeth; Comme nt: OnSet Date: 04/19 00; Not Available [facility] 6 09:31:51 54367 homatropi ne / hydrocodo ne medicatio n respirato ry distress Not available Not available 08/06/20162014 05504 4 RxNorm Not Available [facility] 6 10:03:41 81521 acetamino phen / hydrocodo ne medicatio n respirato ry distress Not available Not available 08/06/2016201418 2 RxNorm Not Available [facility] 6 10:03:41 Medications Name Sig Start [...] completed Not Available Not Available Not Available [place] Thyroid 60 mg tablet TAKE ONE (1) TABLET BY ORAL ROUTE DAILY FOR 30 DAYS 02/01 completed Not Available Not Available Not Available levothyro xine 137 mcg tablet 0.137 mg by oral route. 02/23 completed Not Available Not Available Not Available [place] Thyroid 90 mg tablet TAKE ONE (1) [...] Status: Recorded on: 08/20/20 15 1:12PM;U ser: [email or web address] Not Available Not Available Not Available azithromy [...] Not Available Not Available No t Available [place] Thyroid 120 mg tablet TAKE ONE (1) [...] Disconti nued on: 09/17/20 14 12:26PM; User: [email or web address]; Est. Completi on: 12/09/19 15;Pharm acHalie ied: 06/12/20 14 4:44PM Not Available Not [...] nued on: 08/20/20 15 1:12PM;U ser: marty Est. Completi on: 05/14/20 15;Indic ation: Burn [...] Disconti nued on: 10/14/20 15 1:34PM;U ser: [email or web address]; Est. Completi on: 11/23/19

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
--- OUTSIDE RECORDS SUMMARY | 2025-08-01 12:55 | XMS_ITS ---
Care Plan - [facility], [facility] Created on: August 01, 2025 Nelia Silva : 1965 Sex: Female Author Organization [facility] Address [address] [place] [address] Phone Care Team Providers Care Correspondence Representative Name Role Phone Faisal GAN, [place] Unavailable [phone] Devorah Thompson APRN Unavailable [phone]
--- OUTSIDE RECORDS SUMMARY | 2025-08-01 12:55 | XMS_ITS | Data Portability ---
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 Medications, charts and records reviewed in full today. - blood pressure 124/76, heart rate 57, weight 238 lb. Oxygen saturation is 98% on room air. EKG today reveals sinus bradycardia with a rate of 57 beats per minute, right bundle branch block with left axis deviation, bifascicular block, abnormal EKG. - LAST ECHO: 09/2022 revealed normal LVEF of 60% with evidence of diastolic dysfunction and mild MR. LAST ISCHEMIC EVAL: 09/2022 revealed no evidence of ischemia on perfusion imaging. - Plan: Continue current plan of care. EKG at follow-up. Follow-up in three months. - -Continue other current medications. -Continue aggressive risk factor modification. -Recommend LDL less than 70. -Encouraged regular exercise and activity. - This note was dictated using [employer] software. If something is unclear, or does not make sense, please do not hesitate to contact our office at [phone] for clarification. [email or web address] Not available 07/06/2023 16:54:44 Plan of Treatment Reminders Order Date Submit Date Provider Last Modified By Organization Details Last Modified Time Details Appointments None recorded. Lab CBC w/ auto diff 2023 024 TAYLOR [facility], [address], [address], [place], [address], 4 03:36:36 CMP, serum or plasma 2023 024 TAYLOR [facility], [address], [address], [place], [address], 4 03:36:37 HbA1c (hemoglobin A1c), blood 2023 024 TAYLOR [facility], [address], [address], [place], [address], 4 03:36:40 iron + TIBC + ferritin, serum 2023 024 TAYLOR [facility], [address], [address], [place], [address], 4 03:36:33 folate, serum 2023 024 TAYLOR [facility], [address], [address], [place], [address], 4 03:36:41 vitamin D, 25-hydroxy, total, serum 2023 024 TAYLOR [facility], [address], [address], [place], [address], 4 03:36:43 vitamin E, serum 2023 024 TAYLOR [facility], [address], [address], [place], [address], 4 03:36:39 vitamin A (retinol), serum 2023 024 TAYLOR [facility], [address], [address], [place], [address], 4 03:36:42 TSH + free T4, serum 2023 024 TAYLOR [facility], [address], [address], [place], [address], 4 03:36:35 prealbumin, serum 2023 024 TAYLOR [facility], [address], [address], [place], [address], 4 03:36:46 thiamine, QN, blood 2023 024 TAYLOR [facility], [address], [address], [place], [address], 4 03:36:44 methylmalon ate, QN, serum or plasma 2023 024 TAYLOR [facility], [address], [address], [place], [address], 4 03:36:45 lipid panel, serum 2023 024 TAYLOR [facility], [address], [address], [place], [address], 4 03:36:38 CBC w/ auto diff 2022 023 [email or web address] [facility], [address], [address], [place], [address], 3 13:43:13 CMP, serum or plasma 2022 023 [email or web address] [facility], [address], [address], [place], [address], 3 13:43:14 HbA1c (hemoglobin A1c), blood 2022 023 [email or web address] [facility], [address], [address], [place], [address], 3 13:43:14 iron + TIBC + ferritin, serum 2022 023 [email or web address] [facility], [address], [address], [place], [address], 3 13:43:14 folate, serum 2022 023 [email or web address] [facility], [address], [address], [place], [address], 3 13:43:14 vitamin D, 25-hydroxy, total, serum 2022 023 [email or web address] [facility], [address], [address], [place], [address], 3 13:43:14 vitamin E, serum 2022 023 [email or web address] [facility], [address], [address], [place], [address], 3 13:43:15 vitamin A (retinol), serum 2022 023 [email or web address] [facility], [address], [address], [place], [address], 3 13:43:15 TSH + free T4, serum 2022 023 [email or web address] [facility], [address], [address], [place], [address], 3 13:43:15 prealbumin, serum 2022 023 [email or web address] [facility], [address], [address], [place], [address], 3 13:43:15 thiamine, QN, blood 2022 023 [facility], [address], [facility] [address], [place], [address], 3 13:43:15 methylmalon ate, QN, serum or plasma 2022 023 [email or web address] [facility], [address], [address], [place], [address], 3 13:43:16 lipid panel, serum 2022 023 [email or web address] [facility], [address], [address], [place], [address], 3 13:43:16 Referral None recorded. Procedures None recorded. Surgeries None recorded. Imaging XR, hip, unilateral 2023 [facility] [email or web address] [place] [address], [address] [place] [address] , [place], [address], 4 16:28:13 electrocard iogram 2022 023 [email or web address] [facility], [address] [place] [address] [address], [place], [address], 3 16:36:58 Medication Orders Kenalog 10 mg/mL suspension for injection [address] [facility] [id number], [address] [facility] , [place], [address], 4 16:28:13 bupivacaine HCl 0.5 % (5 mg/mL) injection solution [address] [facility] [id number], [address] [facility] [place], [address], 4 16:28:13 Zepbound 2.5 mg/0.5 mL subcutaneou s pen injector [address], [address], 4 08:13:40 ondansetron 4 mg disintegrat ing tablet 2022 [address], [address], 3 15:42:15 Saxenda 3 mg/0.5 mL (18 mg/3 mL) subcutaneou s pen injector 2022 [email or web address], [address], 4 15:14:25 Patient TargetsNo targets recorded. Patient Instructions Encounter Date Encounter Id Patient Instructions Last Modified By Organization Details Last Modified Time 07/27/2023 [id number] electrocardiogra m interpretation* elohman Not available 07/28/2023 14:12:30 Reason for Referral None Reported. Results Created Date Observation Date Name Description Value Unit Range Abnormal Flag Note LastModifiedBy Organization Detail LastModifiedTime 11/23/19 24 11/24/2023 FE+TI BC+FE R iron bind.cap.(TI BC) 269 ug/dL 250-45 0 Not Available [facility] ([facility]) [address] [facility], [place], [address], 11/29/2023 03:36:33 11/23/19 24 11/24/2023 FE+TI BC+FE R UIBC 232 ug/dL 131-42 5 Not Available [facility] ([facility]) [address] [facility], [place], [address], 11/29/2023 03:36:33 11/23/19 24 11/24/2023 FE+TI BC+FE R iron 37 ug/dL 27-159 Not Available [facility] ([facility]) [address] [place], [address], 11/29/2023 03:36:33 11/23/1911/24/2023 FE+TI BC+FE R iron saturation 14 % 15-55 below low normal Not Available [facility] ([facility]) [address] [place], [address], 11/29/2023 03:36:33 11/23/1911/24/2023 FE+TI BC+FE R ferritin 163 NG/mL 15-150 above high normal Not Available [facility] ([facility]) [address] [place], [address], 11/29/2023 03:36:33 11/23/1911/24/2023 TSH+F REE T4 TSH 0.351 uIU/m L 0.450- 4.500 below low normal Not Available [facility] ([facility]) [address] [place], [address], 11/29/2023 03:36:35 11/23/1911/24/2023 TSH+F REE T4 T4,free(dire ct) 0.95 NG/dL 0.82-1 .77 Not Available [facility] ([facility]) [address] [place], [address], 11/29/2023 03:36:35 11/23/1911/24/2023 CBC WITH DIFFE RENTI AL/PL ATELE T WBC 7.0 x10e3 /uL 3.4-10 .8 Not Available [facility] ([facility]) [address] [place], [address], 11/29/2023 03:36:36 11/23/19 24 11/24/2023 CBC WITH DIFFE RENTI AL/PL ATELE T RBC 5.44 x10e6 /uL 3.77-5 .28 above high normal Not Available [facility] ([facility]) [address] [facility], [place], [address], 11/29/2023 03:36:36 11/23/1911/24/2023 CBC WITH DIFFE RENTI AL/PL ATELE T hemoglobin 15.7 g/dL 11.1-1 5.9 Not Available [facility] ([facility]) [address] [facility], [place], [address], 11/29/2023 03:36:36 11/23/1911/24/2023 CBC WITH DIFFE RENTI AL/PL ATELE T hematocrit 47.3 % 34.0-4 6.6 above high normal Not Available [facility] ([facility]) [address] [facility], [place], [address], 11/29/2023 03:36:36 11/23/1911/24/2023 CBC WITH DIFFE RENTI AL/PL ATELE T MCV 87 fL 79-97 Not Available [facility] ([facility]) [address] [facility], [place], [address], 11/29/2023 03:36:36 11/23/1911/24/2023 CBC WITH DIFFE RENTI AL/PL ATELE T MCH 28.9 pg 26.6-3 3.0 Not Available [facility] ([facility]) [address] [facility], [place], [address], 11/29/2023 03:36:36 11/23/1911/24/2023 CBC WITH DIFFE RENTI AL/PL ATELE T MCHC 33.2 g/dL 31.5-3 5.7 Not Available [facility] ([facility]) [address] [facility], [place], [address], 11/29/2023 03:36:36 11/23/19 24 11/24/2023 CBC WITH DIFFE RENTI AL/PL ATELE T RDW 13.0 % 11.7-1 5.4 Not Available [facility] ([facility]) [address], [place], [address], 11/29/2023 03:36:36 11/23/1911/24/2023 CBC WITH DIFFE RENTI AL/PL ATELE T platelets 240 x10e3 /uL 150-45 0 Not Available [facility] ([facility]) [address] [facility], [place], [address], 11/29/2023 03:36:36 11/23/19 24 11/24/2023 CBC WITH DIFFE RENTI AL/PL ATELE T neutrophils 75 % not estab. Not Available [facility] ([facility]) [address] [facility], [place], [address], 11/29/2023 03:36:36 11/23/1911/24/2023 CBC WITH DIFFE RENTI AL/PL ATELE T lymphs 17 % not estab. Not Available [facility] ([facility]) [address] [facility], [place], [address], 11/29/2023 03:36:36 11/23/1911/24/2023 CBC WITH DIFFE RENTI AL/PL ATELE T monocytes 6 % not estab. Not Available [facility] ([facility]) [address] [facility], [place], [address], 11/29/2023 03:36:36 11/23/1911/24/2023 CBC WITH DIFFE RENTI AL/PL ATELE T eos 2 % not estab. Not Available [facility] ([facility]) [address] [facility], [place], [address], 11/29/2023 03:36:36 11/23/19 24 11/24/2023 CBC WITH DIFFE RENTI AL/PL ATELE T basos 0 % not estab. Not Available [facility] ([facility]) [address] [facility], [place], [address], 11/29/2023 03:36:36 11/23/19 24 11/24/2023 CBC WITH DIFFE RENTI AL/PL ATELE T immature cells WEIGHT TESTER Not Available [facility] ([facility]) [address] [place], [address], 11/29/2023 03:36:36 11/23/19 24 11/24/2023 CBC WITH DIFFE RENTI AL/PL ATELE T neutrophils (absolute) 5.2 x10e3 /uL 1.4-7. 0 Not Available [facility] ([facility]) [address] [place], [address], 11/29/2023 03:36:36 11/23/1911/24/2023 CBC WITH DIFFE RENTI AL/PL ATELE T lymphs (absolute) 1.2 x10e3 /uL 0.7-3. 1 Not Available [facility] ([facility]) [address] [place], [address], 11/29/2023 03:36:36 11/23/19 24 11/24/2023 CBC WITH DIFFE RENTI AL/PL ATELE T monocytes(ab solute) 0.4 x10e3 /uL 0.1-0. 9 Not Available [facility] ([facility]) [address] [place], [address], 11/29/2023 03:36:36 11/23/1911/24/2023 CBC WITH DIFFE RENTI AL/PL ATELE T eos (absolute) 0.2 x10e3 /uL 0.0-0. 4 Not Available [facility] ([facility]) [address] [place], [address], 11/29/2023 03:36:36 11/23/19 24 11/24/2023 CBC WITH DIFFE RENTI AL/PL ATELE T baso (absolute) 0.0 x10e3 /uL 0.0-0. 2 Not Available [facility] ([facility]) [address] [place], [address], 11/29/2023 03:36:36 11/23/19 24 11/24/2023 CBC WITH DIFFE RENTI AL/PL ATELE T immature granulocytes 0 % not estab. Not Available [facility] ([facility]) [address] [facility], [place], [address], 11/29/2023 03:36:36 11/23/19 24 11/24/2023 CBC WITH DIFFE RENTI AL/PL ATELE T immature grans (abs) 0.0 x10e3 /uL 0.0-0. 1 Not Available [facility] ([facility]) [address] [facility], [place], [address], 11/29/2023 03:36:36 11/23/19 24 11/24/2023 CBC WITH DIFFE RENTI AL/PL ATELE T NRBC WEIGHT TESTER Not Available [facility] ([facility]) [address] [facility], [place], [address], 11/29/2023 03:36:36 11/23/19 24 11/24/2023 CBC WITH DIFFE RENTI AL/PL ATELE T hematology comments: WEIGHT TESTER Not Available [facility] ([facility]) [address] [facility], [place], [address], 11/29/2023 03:36:36 11/23/19 24 11/24/2023 COMP. METAB OLIC PANEL (14) glucose 84 mg/dL 70-99 Not Available [facility] ([facility]) [address] [facility], [place], [address], 11/29/2023 03:36:37 11/23/19 24 11/24/2023 COMP. METAB OLIC PANEL (14) BUN 19 mg/dL 6-24 Not Available [facility] ([facility]) [address] [facility], [place], [address], 11/29/2023 03:36:37 11/23/19 24 11/24/2023 COMP. METAB OLIC PANEL (14) creatinine 1.07 mg/dL 0.57-1 .00 above high normal Not Available [facility] ([facility]) [address] [facility], [place], [address], 11/29/2023 03:36:37 11/23/19 24 11/24/2023 COMP. METAB OLIC PANEL (14) eGFR 61 mL/mi n/1.7 3 >59 Not Available [facility] ([facility]) [address] [facility], [place], [address], 11/29/2023 03:36:37 11/23/19 24 11/24/2023 COMP. METAB OLIC PANEL (14) BUN/creatini ne ratio 18 9-23 Not Available [facility] ([facility]) [address] [facility], [place], [address], 11/29/2023 03:36:37 11/23/19 24 11/24/2023 COMP. METAB OLIC PANEL (14) sodium 139 mmol/ L 134-14 4 Not Available [facility] ([facility]) [address] [place], [address], 11/29/2023 03:36:37 11/23/19 24 11/24/2023 COMP. METAB OLIC PANEL (14) potassium 4.3 mmol/ L 3.5-5. 2 Not Available [facility] ([facility]) [address] [facility], [place], [address], 11/29/2023 03:36:37 11/23/19 24 11/24/2023 COMP. METAB OLIC PANEL (14) chloride 104 mmol/ L 96-106 Not Available [facility] ([facility]) [address] [place], [address], 11/29/2023 03:36:37 11/23/19 24 11/24/2023 COMP. METAB OLIC PANEL (14) carbon dioxide, total 20 mmol/ L 20-29 Not Available [facility] ([facility]) [address], [place], [address], 11/29/2023 03:36:37 11/23/19 24 11/24/2023 COMP. METAB OLIC PANEL (14) calcium 9.3 mg/dL 8.7-10 .2 Not Available [facility] ([facility]) [address], [place], [address], 11/29/2023 03:36:37 11/23/19 24 11/24/2023 COMP. METAB OLIC PANEL (14) protein, total 6.7 g/dL 6.0-8. 5 Not Available [facility] ([facility]) [address] [place], [address], 11/29/2023 03:36:37 11/23/19 24 11/24/2023 COMP. METAB OLIC PANEL (14) albumin 4.5 g/dL 3.8-4. 9 Not Available [facility] ([facility]) [address] [place], [address], 11/29/2023 03:36:37 11/23/19 24 11/24/2023 COMP. METAB OLIC PANEL (14) globulin, total 2.2 g/dL 1.5-4. 5 Not Available [facility] ([facility]) [address] [place], [address], 11/29/2023 03:36:37 11/23/1911/24/2023 COMP. METAB OLIC PANEL (14) A/G ratio 2.0 1.2-2. 2 Not Available [facility] ([facility]) [address] [place], [address], 11/29/2023 03:36:37 11/23/19 24 11/24/2023 COMP. METAB OLIC PANEL (14) bilirubin, total 0.4 mg/dL 0.0-1. 2 Not Available [facility] ([facility]) [address] [facility] [place], [address], 11/29/2023 03:36:37 11/23/19 24 11/24/2023 COMP. METAB OLIC PANEL (14) alkaline phosphatase 93 IU/L 44-121 Not Available [facility] ([facility]) [address] [facility] [place], [address], 11/29/2023 03:36:37 11/23/19 24 11/24/2023 COMP. METAB OLIC PANEL (14) AST (SGOT) 20 IU/L 0-40 Not Available [facility] ([facility]) [address] [place] [place], [address], 11/29/2023 03:36:37 11/23/19 24 11/24/2023 COMP. METAB OLIC PANEL (14) ALT (SGPT) 24 IU/L 0-32 Not Available [facility] ([facility]) [address] [facility] [place], [address], 11/29/2023 03:36:37 11/23/19 24 11/24/2023 LIPID PANEL cholesterol, total 238 mg/dL 100-19 9 above high normal Not Available [facility] ([facility]) [address] [place] [place], [address], 11/29/2023 03:36:38 11/23/19 24 11/24/2023 LIPID PANEL triglyceride s 96 mg/dL 0-149 Not Available [facility] ([facility]) [address] [facility] [place], [address], 11/29/2023 03:36:38 11/23/19 24 11/24/2023 LIPID PANEL HDL cholesterol 67 mg/dL >39 Not Available [facility] ([facility]) [address] [place] [place], [address], 11/29/2023 03:36:38 11/23/19 24 11/24/2023 LIPID PANEL VLDL cholesterol henrique 17 mg/dL 5-40 Not Available [facility] ([facility]) [address] [place], [address], 11/29/2023 03:36:38 11/23/19 24 11/24/2023 LIPID PANEL LDL chol calc ([facility]) 154 mg/dL 0-99 above high normal Not Available [facility] ([facility]) [address] [facility], [place], [address], 11/29/2023 03:36:38 11/23/19 24 11/24/2023 LIPID PANEL comment: WEIGHT TESTER Not Available [facility] ([facility]) [address] [facility], [place], [address], 11/29/2023 03:36:38 11/23/19 24 11/27/2023 VITAM IN E vitamin E(alpha tocopherol) 16.0 mg/L 7.0-25 .1 Not Available [facility] ([facility]) [address] [facility], [place], [address], 11/29/2023 03:36:39 11/23/1911/27/2023 VITAM IN E vitamin E(gamma tocopherol) 1.9 mg/L 0.5-5. 5 Refer ence inter vals for alpha and gamma -toco phero l deter mined from [facility] tion Exami natio n Surve y, 2004- 2005. Indiv idual s with alpha -toco phero l level s less than 5.0 mg/L are consi dered vitam in E defic ient. Not Available [facility] ([facility]) [address] [facility], [place], [address], 11/29/2023 03:36:39 11/23/19 24 11/24/2023 HEMOG LOBIN A1C hemoglobin A1C 5.4 % 4.8-5. 6 Predi abete s: 5.7 - 6.4 Diabe joshua: >6.4 Glyce tahir contr ol for adult s with diabe joshua: <7.0 Not Available [facility] ([facility]) [address] [facility], [place], [address], 11/29/2023 03:36:40 11/23/1911/24/2023 FOLAT E (FOLI C ACID) , SERUM folate (folic acid), serum >20.0 NG/mL >3.0 A serum folat e cherry ntrat ion of less than 3.1 ng/mL is consi dered to repre sent clini henrique defic iency . Not Available [facility] ([facility]) [address] [facility], [place], [address], 11/29/2023 03:36:41 11/23/19 24 11/27/2023 VITAM IN A, SERUM vitamin A 36.9 ug/dL 20.1-6 2.0 Refer ence inter vals for vitam in A deter mined from [facility] inter nal studi es. Indiv idual s with vitam in A less than 20 ug/dL are consi dered vitam in A defic ient and those with serum cherry ntrat ions less than 10 ug/dL are consi dered sever kevin defic ient. This test was devel oped and its perfo rmanc e arianna cteri stics deter mined by [employer]. It has not been clear ed or appro sid by the Food and Drug Admin istra tion. Not Available [facility] ([facility]) [address] [facility], [place], [address], 11/29/2023 03:36:42 11/23/1911/24/2023 VITAM IN D, 25-HY DROXY vitamin D, 25-hydroxy 42.3 NG/mL 30.0-1 00.0 Vitam in D defic iency has been defin ed by the Insti lenny of Medic ine and an Endoc rine [...] ence federico es for calci um and DGrant gonzalez [place]: The [facility] Press . 2. Holic k MF, Binkl ey [place], Bisch off-F errar i SANTIAGO, et al. Evalu ation , treat ment, and preve ntion of vitam in D defic iency : an Endoc rine Socie ty clini henrique pract ice guide line. JCEM. 2010; 96(7) :1911 -30. Not Available [facility] ([facility]) [address] [place], [address], 11/29/2023 03:36:43 11/23/19 24 11/28/2023 VITAM IN B1 (THIA MINE) , BLOOD vit. B1, whole blood 118.8 nmol/ L 66.5-2 00.0 Not Available [facility] ([facility]) [address] [place], [address], 11/29/2023 03:36:44 11/23/19 24 11/28/2023 METHY LMALO SHIKHA ACID, SERUM methylmaloni c acid, serum 163 nmol/ L 0-378 Not Available [facility] ([facility]) [address] [place], [address], 11/29/2023 03:36:45 11/23/19 24 11/24/2023 PREAL BUMIN prealbumin 18 mg/dL 10-36 Not Available [facility] ([facility]) [address] [place], [address], 11/29/2023 03:36:46 07/06/20 23 07/06/2023 elect lito moreno am No observ ation record ed. TAYLOR King [address], [place], [address], 07/06/2023 13:36:27 07/06/20 23 07/06/2023 elect rocar diogr am No observ ation record ed. TAYLOR King [facility] [address], [place], [address], 07/06/2023 13:43:49 07/27/20 23 elect rocar diogr am No observ ation record ed. Not Available 2022 09:12:59 07/24/20 24 XR, hip, unila teral No observ ation record ed. TAYLOR King [facility] [address], [place], [address], 07/24/2024 14:10:10 Result Notes None recorded. Problems Name Problem SNOMED Code Status Onset Date Resolution Date Notes Provider Name and Address Organization Details Recorded Time Disorder of function of stomach 293233800 Active 2021 Alicia Combs null, [place] - [facility] - [place] 2 15:34:23 Obesity 688354697 Active 2021 Alicia Combs null, [place] [facility] [place] 2 15:34:23 Hyperlipid emia 61801114 Active 2021 Alicia Combs [place] [facility] [place] 2 15:34:23 Hypothyroi dism 38317298 Active 2021 Alicia Combs [place] [facility] [place] 2 15:34:23 Pain of joint of knee 6656621001 Active 2021 Alicia Combs [place] [facility] [place] 2 15:34:23 Unintentio nal weight gain 0413954331705 04 Active 2021 Alicia Combs null, [place] [facility] [place] 2 15:34:23 Fibromyalg ia 440497076 Active 2021 Alicia Combs null[place] [facility] [place] 2 15:34:23 Varicose veins of lower extremity 20677281 Active 2021 Alicia Combs null, [place] [facility] [place] 2 15:34:23 Prediabete s 509600817 Active 2021 Alicia Iniguezer null, [place] [facility] [place] 2 15:34:23 Elevated blood-pres sure reading without diagnosis of hypertensi on 963573226 Active 2021 Alicia Iniguezer null, [place] [facility] [place] 2 15:34:23 Hyperlipid emia 22065651 Active 2021 Alicia Iniguezer [place] [facility] [place] 2 15:34:23 Essential hypertensi on 40147828 Active 2021 Alicia Combs [place] [facility] [place] 2 15:34:23 Obesity 760989500 Active 2021 Alicia Combs [place] [facility] [place] 2 15:34:23 Osteoarthr itis 420735367 Active 2021 Alicia Combs null, [place] [facility] [place] 2 15:34:23 Morbid obesity 383949032 Active 2021 Alicia Combs [place] [facility] [place] 2 15:34:23 Mitral valve regurgitat ion 05498929 Active 2021 Sudhir Last NP [address], [place], [address] , [place] - [facility] [place] & [place] 2 08:57:33 Diastolic dysfunctio n 2001202 Active 2021 Sudhir Last NP [address], [place], [address] , [place] [facility] [place] 2 08:57:45 Laparoscop ic sleeve gastrectom y Active 2022 Miko Monroy, ERIC, DRAPERY AND UPHOLSTERY MEASURER, WEIGHT TESTER-C [address], [place], [address] , [place] [facility] - [place] & [place] 3 11:50:51 Nausea 747783257 Active 2022 Miko Monroy DNP, DRAPERY AND UPHOLSTERY MEASURER, WEIGHT TESTER-C [address], [place], [address] , [place] - [facility] - [place] & [place] 3 15:40:57 Notes:granuloma anulair (chr onic skin condition) Problem Notes None recorded. Procedures Surgical History Date Name Laterality Status Provider Name and Address Organization Details Recorded Time 10/31 EGD completed Samina BEDOLLA - [facility] - [place] & [place] 3 13:24:30 12/10 Date of Last Colonoscopy completed Samina Fam [facility] & [place] 2 11:09:55 10/31 Colonoscopy completed Samina BEDOLLA - [facility] & [place] 2 11:09:56 01/07 completed Samina BEDOLLA - [facility] - [place] & [place] 2 11:09:55 11/11 Date of Last Pap Smear completed Samina BEDOLLA - [facility] - [place] & [place] 2 11:09:55 10/31 ligation of fallopian tube completed Vielka BEDOLLA - [facility] & [place] 2 15:34:23 10/31 Cooper Helper Surgery completed Samina Fam [facility] - [place] & [place] 2 11:09:56 08/12 plain X-ray of abdomen completed Zak SHERMAN [facility] & [place] 2 11:01:56 01/06 radionuclide imaging of liver and/or biliary tract using radioactive isotope completed Zak SHERMAN [facility] & [place] 2 11:04:34 12/23 US scan of gallbladder completed Zak BEDOLLA - [facility] - [place] & [place] 2 11:01:23 10/31 EGD completed Samina BEDOLLA - LP[facility] - [place] & [place] 2 11:09:56 10/31 Colonoscopy completed Samina BEDOLLA - [facility] - [place] & [place] 2 11:09:56 salpingo-oophorectomy completed Dianne BEDOLLA - LP[facility] - [place] & [place] 2 15:34:23 section completed Alicia Combs GRAEME - LPNT - [place] & [place] 2 15:34:23 arthroscopy of knee completed Vielka garcia Combs GRAEME - LPNT - [place] & [place] 2 15:34:23 Tonsillectomy completed Alicia Combs GRAEME - LP[facility] - [place] & [place] 2 15:34:23 Colonoscopy completed Alicia Combs GRAEME - LP[facility] - [place] & [place] 2 15:34:23 esophagogastroduodenoscopy completed Alicia Combs GRAEME - LP[facility] - [place] & [place] 2 15:34:23 Imaging Results None recorded. Procedure Notes None recorded. Medical Equipment None Reported. Allergies Allergen ID Allergen Name Allergen Category Reaction Reaction Severity Criticality Documentation Date Start Date Code Code System Note Provider Name and Address Organization Details Recorded Time 088161 acetamino phen / oxycodone medicatio n Not available Not available Not available 07/24/202444087 3 RxNorm Jennifer Bowie null, [place] - [facility] - [place] & [place] 4 13:59:06 84899 Keflex medicatio n Not available Not available Not available 09/06/202212076 7 RxNorm Bartolome lantigua null, [place] - [facility] - [place] & [place] 2 08:19:55 44635 hydrocodo ne Not available Not available Not available Not available 09/06/2022 5489 RxNorm Bartolome Arriaga-Bec rhina null, GRAEME - LPNT [facility] & [place] 2 08:19:57 78456 hydrocodo ne Not available Not available Not available Not available 09/13/2022 5489 RxNorm Zak Spain null, GRAEME Fam LPNT [facility] & [place] 2 10:57:19 78544 oxycodone medicatio n Not available Not available Not available 09/13/2022 7804 RxNorm [facility] Spain [facility] [place] 2 10:57:27 77625 Keflex medicatio n Not available Not available Not available 09/13/202250963 7 RxNorm ingris goncalves null, [place] Cristel [facility] & [place] 2 15:23:31 03139 propofol medicatio n Not available Not available Not available 10/14/2022 8782 RxNorm Samina solitario null, GRAEME [facility] & [place] 3 13:24:19 Medications Name Sig Start Date Stop Date Status Note LastModified by Organization Details LastModified Time Prescriptio n - Prior Authorizati on Request active Not Available Not Available N ot Available amoxicillin 500 mg capsule TAKE ONE (1) CAPSULE TWICE A DAY BY ORAL ROUTE FOR 10 DAYS. 04/27 completed Not Available Not Available Not Available [place] Thyroid 60 mg tablet TAKE ONE (1) TABLET BY ORAL ROUTE DAILY FOR 30 DAYS active Not Available Not Available No t Available [place] Thyroid 90 mg tablet TAKE ONE (1) TABLET BY ORAL ROUTE DAILY FOR 30 DAYS active Not Available Not Available No t Available Neurontin 300 mg capsule 1 capsule 3 times a day by oral route. active Not Available Not Available No t Available Iron (ferrous sulfate) 325 mg (65 mg iron) tablet Take 1 tablet every day by oral route. 05/11 completed Not Available Not Available Not Available azithromyci n 250 mg tablet TAKE TWO (2) TABLETS (500 MG) BY ORAL ROUTE ONCE DAILY FOR ONE (1) DAY THEN ONE (1) TABLET (250 MG) BY ORAL ROUTE ONCE DAILY FOR FOUR (4) DAYS 11/23 completed Not Available Not Available Not Available ibuprofen 800 mg tablet Take 1 tablet 3 times a day by oral route as needed. 09/13 completed Not Available Not Available Not Available bupivacaine HCl 0.5 % (5 mg/mL) injection solution Take 10 mg by injection route. 2023 active Not Available Not Available Not Avai lable Synthroid 100 mcg tablet TAKE 1 TABLET BY MOUTH EVERY DAY active Not Available Not Available No t Available [place] Thyroid 120 mg tablet TAKE ONE (1) TABLET BY MOUTH EVERY DAY 04/27 completed Not Available Not Available Not Available acetaminoph en 300 mg-codeine 30 mg tablet 09/10 completed Not Available Not Available Not Available Celebrex 100 mg capsule 1 capsule twice a day by oral route. active Not Available Not Available No t Available Kenalog 10 mg/mL suspension for injection Take 20 mg by injection route. 2023 active Not Available Not Available Not Avai lable pantoprazol e 40 mg tablet,isac yed release Take 1 tablet every day by oral route. 10/20 completed Not Available Not Available Not Available levothyroxi ne 150 mcg tablet Take 1 tablet every day by oral route. 09/19 completed Not Available Not Available Not Available omeprazole 20 mg capsule,del ayed release 1 capsule every day by oral route. active Not Available Not Available No t Available levothyroxi ne 200 mcg tablet TAKE 1 TABLET BY MOUTH EVERY DAY 09/10 completed Not Available Not Available Not Available [place] Thyroid 30 mg tablet TAKE ONE (1) TABLET EVERY DAY BY ORAL ROUTE. 07/06 completed Not Available Not Available Not Available loteprednol etabonate 0.5 % eye drops,suspe nsion 01/19 completed Not Available Not Available Not Available ondansetron 4 mg disintegr[address] ing tablet PLACE ONE (1) TABLET ON TOP OF THE TOUNGE EVERY 4-6 HOURS FOR 10 DAYS active Not Available Not Available No t Available topiramate 100 mg tablet TAKE ONE (1) TABLET BY MOUTH TWICE DAILY active Not Available Not Available No t Available fluticasone propionate 50 mcg/actuati on nasal spray,suspe nsion INSTILL ONE (1) SPRAY IN EACH NOSTRIL DAILY active Not Available Not Available No t Available moxifloxaci n 0.5 % eye drops 01/19 completed Not Available Not Available Not Available rosuvastati n 5 mg tablet TAKE 1 TABLET BY MOUTH EVERYDAY AT BEDTIME 11/24 completed Not Available Not Available Not Available rosuvastati n 10 mg tablet 1 tablet every day by oral route. active Not Available Not Available No t Available magnesium citrate 350 mg qd 10/14 completed Not Available Not Available Not Available Fish Oil 10/14 completed Not Available Not Available Not Available biotin 10/14 completed Not Available Not Available Not Available Vitamin D 10/14 completed Not Available Not Available Not Available multivitami n active Not Available Not Available Not Available Fiber Gummies active Not Available Not Available Not Available Saxenda 3 mg/0.5 mL (18 mg/3 mL) subcutaneou s pen injector Inject 3 mg every day by subcutane ous route for 30 days. 11/23 completed Not Available Not Available Not Available Durolane 60 mg/3 mL intra-artic ular syringe 09/10 completed Not Available Not Available Not Available turmeric 10/14 completed Not Available Not Available Not Available cannabidiol (CBD) oral solution Take by oral route. 10/14 completed Not Available Not Available Not Available Alive Calcium-Vit garcia D3 05/11 completed Not Available Not Available Not Available Zepbound 5 mg/0.5 mL subcutaneou s pen injector Inject 5 mg every week by subcutane ous route. 2023 active Not Available Not Available Not Avai lable Zepbound 2.5 mg/0.5 mL subcutaneou s pen injector INJECT 2.5MG EVERY WEEK BY SUBCUTANE OUS ROUTE FOR 30 DAYS. active Not Available Not Available No t Available Zepbound 12.5 mg/0.5 mL subcutaneou s pen injector INJECT 12.5 MG EVERY WEEK BY SUBCUTANE OUS ROUTE. active Not Available Not Available No t Available Zepbound 7.5 mg/0.5 mL subcutaneou s pen injector INJECT 7.5 MG EVERY WEEK BY SUBCUTANE OUS ROUTE. active Not Available Not Available No t Available Vitals Date Recorded Body height Body temperature Heart rate Body mass index (BMI) Body weight Systolic And Diastolic Provider Name and Address Organization Details Last Updated DateTime 4 165.1 cm 98 [degF] 62 /min 39.2 kg/m2 414833. 28 g 143/92 mm[Hg] Kimberli Pizarro [facility] & [place] 4 15:15:51 Date Recorded Body height Body mass index (BMI) Body weight Oxygen saturation Oxygen saturation in Arterial blood by Pulse oximetry Heart rate Systolic And Diastolic Provider Name and Address Organization Details Last Updated DateTime 3 165.1 cm 39.6 kg/m2 120772. 98 g 98 % 98 % 57 /min 124/76 mm[Hg] Samina Sadia solitario [facility] & [place] 3 13:34:28 Date Recorded Body height Provider Name an d Address Organization Details Last Updated DateTime 07/24/2024 165.1 cm Jennifer Bowie [facility] & [place] 07/24/2024 13:59:00 Date Recorded Body height Body temperature Heart rate Body mass index (BMI) Body weight Systolic And Diastolic Provider Name and Address Organization Details Last Updated DateTime 3 165.1 cm 98.6 [degF] 63 /min 39.3 kg/m2 530314. 88 g 126/82 mm[Hg] Apolonia Jerome [facility] & [place] 3 15:16:31 Social History Question Answer Notes LastModified by Organizat ion Details LastModified Time Tobacco Smoking Status Former Smoker Samina Freed [facility] & [place] 09/10/2022 11:09:55 Do You Have An Advance Directive? Yes Information not available 07/06/2023 Are You Blind Or Do You Have Difficulty Seeing? No Information not available 07/06/2023 What Is Your Level Of Caffeine Consumption? Moderate 1 Cup Coffee Daily [email or web address] Information not available 08/03/2023 What Was The Date Of Your Most Recent Tobacco Screening? 09/10/2022 [email or web address] Information not available 09/10/2022 How Many Children Do You Have? 2 Information not available 08/03/2023 What Is Your Relationship Status? [email or web address] Information not available 08/03/2023 Are You Passively Exposed To Smoke? No [email or web address] Information not available 09/10/2022 How Much Tobacco Do You Smoke? No [email or web address] Information not available 09/10/2022 How Many Years Have You Smoked Tobacco? 20 [email or web address] Information not available 09/10/2022 Sex: Unknown Functional Status Question Answer Note LastModified by Organizat ion Details LastModified Time Do you use any illicit or recreational drugs? No Information not available 09/10/2022 What is your level of alcohol consumption? None [email or web address] Information not available 09/10/2022 Do you or have you ever used smokeless tobacco? Never used smokeless tobacco [email or web address] Information not available 09/10/2022 What is your exercise level? Occasional [email or web address] Information not available 09/10/2022 Mental Status Question Answer Note LastModified by Organization D etails LastModified Time Do you feel stressed (tense, restless, nervous, or anxious, or unable to sleep at night)? [id number] Information not available 07/06/2023 Family History Relationship Description Onset Age of this Age Resolved Age Notes LastModified by Organization Details LastModified Time Father Diabetes mellitus [email or web address] Not available 2023 13:21:56 Father Hypertensive disorder [email or web address] Not available 2021 15:34:23 Father Heart disease Not available 2021 15:34:23 Father Hypercholest erolemia [email or web address] Not available 2021 15:34:23 Father Asthma [email or web address] Not available 13:21:56 Father Disorder of endocrine system pt. added direct ly (09/10) [email or web address] Not available 09/10/2022 10:22:05 Father Heart disease pt. added direct ly (09/10) [email or web address] Not available 09/10/2022 10:22:50 Father Hypercholest erolemia pt. added direct ly (09/10) [email or web address] Not available 09/10/2022 10:23:06 Father Hypertensive disorder pt. added direct ly (09/10) [email or web address] Not available 09/10/2022 10:23:32 Paternal Grandmother Diabetes mellitus [email or web address] Not available 2023 13:21:56 Paternal Grandmother Hypertensive disorder [email or web address] Not available 2021 15:34:23 Paternal Grandmother Heart disease [email or web address] Not available 2021 15:34:23 Paternal Grandmother Hypercholest erolemia [email or web address] Not available 2021 15:34:23 Paternal Grandmother Myocardial infarction pt. added direct ly (09/10) [email or web address] Not available 09/10/2022 10:21:46 Paternal Grandmother Disorder of endocrine system pt. added direct ly (09/10) [email or web address] Not available 09/10/2022 10:22:05 Paternal Grandmother Heart disease pt. added direct ly (09/10) [email or web address] Not available 09/10/2022 10:22:50 Paternal Grandmother Hypercholest erolemia pt. added direct ly (09/10) [email or web address] Not available 09/10/2022 10:23:06 Paternal Grandmother Hypertensive disorder pt. added direct ly (09/10) [email or web address] Not available 09/10/2022 10:23:32 Paternal Grandfather Cerebrovascu lar accident [email or web address] Not available 05/2022 15:34:23 Brother Sleep disorder [email or web address] Not available 2021 15:34:23 Mother Chronic obstructive pulmonary disease [email or web address] Not available 2021 15:34:23 Mother Chronic obstructive pulmonary disease pt. added direct ly (09/10) [email or web address] Not available 09/10/2022 10:22:27 Mother Hearing loss pt. added direct ly (09/10) [email or web address] Not available 09/10/2022 10:22:37 Mother Disorder of thyroid gland pt. added direct ly (09/10) [email or web address] Not available 09/10/2022 10:24:08 Mother Anemia pt. added direct ly (09/10) [email or web address] Not available 09/10/2022 10:24:34 Maternal Grandfather Cerebrovascu lar accident pt. added direct ly (09/10) [email or web address] Not available 09/10/2022 10:23:50 Medical History Condition Response Heart Problems Y Gout Y Thyroid Problems Y GI Problems Y Hypothyroidism Y Diabetes Y Autoimmune disease Y Muscle, Joint, or Bone Problems Y Obesity Y Arthritis Y Back Problems Y Varicosities Y Shortness of Breath Y Reflux/GERD Y High Cholesterol Y Gynecological History Statement/Question Response Abnormal Pap N 01/08/2020 Date of Last Colonoscopy 12/10/2020 Date of LMP 05/31/2018 Sexually Active? Y Date of Last Pap Smear 11/11/2019 Current Control Method Tubal Ligat ion Age at Menarche 53 Obstetrics History GPAL:G 0 P 0 0 0 0 Past Encounters Encounter ID Performer Location Encounter Start Date Encounter Closed Date Diagnosis/Indication Diagnosis SNOMED-CT Code Diagnosis ICD10 Code Diagnosis IMO Codes Diagnosis Note [id number] Miko Monroy, DNP, DRAPERY AND UPHOLSTERY MEASURER, WEIGHT TESTER-C [facility] [address] [facility] [address] [place] [address] 09/09/2022 07:56:29 09/09/2022 12:09:14 Obesity 832956001 E66.9 The patient will be scheduled for the following. Initial intake lab work, cardiac clearance, and EGD. All risks complicati ons and alternativ es of the upper endoscopy were discussed with the patient and agreed upon. These include but are not limited to, over sedation, bleeding, perforatio n. Patient will be educated by the surgical weight loss team regarding if any medical managed weight loss will be required and they will follow this according to their recommenda tions. patient will follow-up in office after all testing has been completed Disorder o f function of stomach 904332245 K31.89 Hyperlipidemia 18656218 E78.5 Hypothyroidism 77128445 E03.9 Pain of joint of knee 10 08662124 M25.569 Fibromyalgia 274989441 M 79.7 Unintentio nal weight gain 9169034185 41903 R63.5 Prediabetes 690384091 R7 3.03 [id number] TRACEY BARRETO, [place], S [address] [place] [address] 09/10/2022 10:37:37 09/10/2022 12:13:19 Dyspnea 596971612 R06.00 Preoperati ve cardiovascular examination 110430176 Z01.810 Essential hypertension 36970545 I10 Hyperlipidemia 12965066 E78.5 Morbid obesity 400652295 E66.01 Right bund le branch block 12755665 I45.10 Electrocar diogram abnormal 728001916 R94.31 [id number] Too Tolbert MD [facility] [address] [place] [address] [address] [place] [address] 09/13/2022 14:04:57 09/13/2022 16:41:18 Pre-surgery evaluation 100461929 Z01.818 need EGD as part of her pre surgical evaluation before potential bariatric surgery schedule EGD Morbid obesity 595123960 E66.01 currently in evaluation for potential bariatric surgery [id number] Grady Mcadams MD [address] [place] [id number] 09/17/2022 07:41:54 09/17/2022 07:42:18 Essential hypertension 62015578 I10 EKG INTERPRETA TION: EKG dated 09/10/22 revealed sinus rhythm, heart rate 65. Right bundle branch block & right axis low voltage. Abnormal. [id number] Sudhir Last NP [address] [place] [id number] 10/14/2022 14:48:06 10/14/2022 15:09:51 Mitral valve regurgitation 34406937 I34.0 Diastolic dysfunction 35 41654 I51.9 Obesity 259864144 E66.9 Preoperati ve cardiovascular examination 752222204 Z01.810 [id number] Grady Hawkins DO [facility]ariatric [facility] Adv Surg [address] [facility] [address] [place] [address] 10/20/2022 07:52:32 10/20/2022 14:22:31 Morbid obesity 490164847 E66.01 Pre-surger y evaluation 502520426 Z01.818 Postoperative pain 51092 9007 G89.18 Essential hypertension 31793942 I10 Hyperlipidemia 33799537 E78.5 Prediabetes 576566895 R7 3.03 Miko Monroy, DNP, DRAPERY AND UPHOLSTERY MEASURER, WEIGHT TESTER-C [facility] [address] [facility] [address] [place] [address] 11/02/2022 08:15:52 11/02/2022 10:48:26 Morbid obesity 467564676 E66.01 The patient is doing well. The patient is instructed to continue their vitamins as directed. They are to continue advancing their diet as directed. They may start exercising but keep lifting less than 25 pounds for 2 more weeks. I will see them back in 3 weeks or one month from surgery. We will order their first set of labs at that time. I summarized the expectatio ns for the upcoming year. We will check labs at their one month visit from surgery, 3 months from surgery as well as at 6, 9, and 12 months from surgery. These labs will be ordered on the day of their appointmen t. They have the option to come to the appointmen t fasting and labs can be drawn that day at the hospital. If not, I expect these labs to be drawn within the week of ordering them. If they choose to have them drawn at another the [facility] they are to make sure that the labs are sent to my office. These labs will be reviewed once received and the patient will be called with any significan t abnormalit ies and how they should be addressed. If they would like a copy of their labs they are welcome to request these and we will send a copy to them. If their labs and vitamin levels are adequate at 12 months then they will need lab checks every 6mth-12mth . They consent to understand this plan and agree to comply. Elevated blood-pressure reading without diagnosis of hypertension 085546207 R03.0 Essential hypertension 46568371 I10 Fibromyalgia 593428230 M 79.7 Hyperlipidemia 37887094 E78.5 Hypothyroidism 99700821 E03.9 Prediabetes 385350337 R7 3.03 [id number] Miko Monroy, DNP, DRAPERY AND UPHOLSTERY MEASURER, WEIGHT TESTER-C [facility]ariat[facility] Adv S[facility] [address] [facility] [address] [place] [address] 11/24/2022 14:33:36 11/24/2022 15:21:08 History of bariatric surgical procedure 740547988 Z98.84 Advised qid intake 50% protein 5184-7156 calories/d y less than 100 carbs/dyPt will see audio visual aids director today.Rosie ent is to have bariatric vitamin lab panel. Patient was reassured on today's visit. Dialogue content in great detail regarding the benefits of proper diet as well as regular and routine exercise. In regards to exercise, we discussed reaching target heart rate for least 20 minutes 3 times a week. We also highlighte d the importance of staying well hydrated. Proper handwashin g was also encouraged . Patient was advised to keep in close contact with their primary care provider and/or any specialty provider (s). We will contact patient with any deficienci es. History of gastrectomy 046328620 Z90.3 Patient is status post bariatric surgery and at increased risk for vitamin deficienci es and malnutriti on. Bariatric vitamin panel ordered today. Patient will be contacted to correct any vitamin deficienci es. Hyperlipidemia 28052423 E78.5 Essential hypertension 73168148 I10 Hypothyroidism 17392322 E03.9 Prediabetes 260473495 R7 3.03 Intentiona l weight loss 726894524 R63.8 [id number] Miko Monroy, ERIC, DRAPERY AND UPHOLSTERY MEASURER, WEIGHT TESTER-C [facility] Adv S[facility] [address] [facility] [address] [place] [address] 01/19/2023 15:05:22 01/19/2023 15:46:38 History of bariatric surgical procedure 215188135 Z98.84 Advised qid intake 50% protein 5977-0634 calories/d y less than 100 carbs/dy Patient is to have bariatric vitamin lab panel. Patient was reassured on today's visit. Dialogue content in great detail regarding the benefits of proper diet as well as regular and routine exercise. In regards to exercise, we discussed reaching target heart rate for least 20 minutes 3 times a week. We also highlighte d the importance of staying well hydrated. Proper handwashin g was also encouraged . Patient was advised to keep in close contact with their primary care provider and/or any specialty provider (s). We will contact patient with any deficienci es. Advised her to take PPI per recommenda tions. History of gastrectomy 386202141 Z90.3 Patient is status post bariatric surgery and at increased risk for vitamin deficienci es and malnutriti on. Bariatric vitamin panel ordered today. Patient will be contacted to correct any vitamin deficienci es. Essential hypertension 22369880 I10 Hyperlipidemia 45748499 E78.5 Hypothyroidism 06773305 E03.9 Intentiona l weight loss 018773216 R63.8 Morbid obesity 524720318 E66.01 The patient is doing well. The patient is instructed to continue their vitamins as directed. They are to continue advancing their diet as directed. They may start exercising but keep lifting less than 25 pounds for 2 more weeks. I will see them back in 3 weeks or one month from surgery. We will order their first set of labs at that time. I summarized the expectatio ns for the upcoming year. We will check labs at their one month visit from surgery, 3 months from surgery as well as at 6, 9, and 12 months from surgery. These labs will be ordered on the day of their appointmen t. They have the option to come to the appointmen t fasting and labs can be drawn that day at the hospital. If not, I expect these labs to be drawn within the week of ordering them. If they choose to have them drawn at another the [facility] they are to make sure that the labs are sent to my office. These labs will be reviewed once received and the patient will be called with any significan t abnormalit ies and how they should be addressed. If they would like a copy of their labs they are welcome to request these and we will send a copy to them. If their labs and vitamin levels are adequate at 12 months then they will need lab checks every 6mth-12mth . They consent to understand this plan and agree to comply. Prediabetes 627710157 R7 3.03 Fibromyalgia 093340409 M 79.7 Pain of joint of knee 10 19227944 M25.569 [id number] Miko Monroy, DNP, DRAPERY AND UPHOLSTERY MEASURER, WEIGHT TESTER-C [facility]ariatric [facility] Adv Surg [address] [facility] [place] [address] 04/27/2023 13:45:00 04/27/2023 14:51:48 History of bariatric surgical procedure 401743754 Z98.84 Advised qid intake 50% protein 7712-3005 calories/d y less than 100 carbs/dy Patient is to have bariatric vitamin lab panel. Patient was reassured on today's visit. Dialogue content in great detail regarding the benefits of proper diet as well as regular and routine exercise. In regards to exercise, we discussed reaching target heart rate for least 20 minutes 3 times a week. We also highlighte d the importance of staying well hydrated. Proper handwashin g was also encouraged . Patient was advised to keep in close contact with their primary care provider and/or any specialty provider (s). We will contact patient with any deficienci es. Advised her to take PPI per recommenda tions. Intentiona l weight loss 953365450 R63.8 History of gastrectomy 236702302 Z90.3 Advised qid intake 50% protein 1963-4282 calories/d y less than 100 carbs/dyLo ng discussion today of [employer] results including PBF(percen t body fat) SMM (skeletal muscle mass) Visceral fat level level BMR Segmental Fat Analysis and Segmental Lean Analysis.E ncouraged pt to take minimal calories as per BMR and to anticipate changes in SMM and PBF values not just total weight.Fol low-up with Repeat HAN in 3mth suggestedp t will see dietitian today.Rosie ent is status post bariatric surgery and at increased risk for vitamin deficienci es and malnutriti on. Bariatric vitamin panel ordered today. Patient will be contacted to correct any vitamin deficienci es. Essential hypertension 10404301 I10 Hyperlipidemia 33251824 E78.5 Morbid obesity 371576621 E66.01 The patient is doing well. The patient is instructed to continue their vitamins as directed. They are to continue advancing their diet as directed. They may start exercising but keep lifting less than 25 pounds for 2 more weeks. I will see them back in 3 weeks or one month from surgery. We will order their first set of labs at that time. I summarized the expectatio ns for the upcoming year. We will check labs at their one month visit from surgery, 3 months from surgery as well as at 6, 9, and 12 months from surgery. These labs will be ordered on the day of their appointmen t. They have the option to come to the appointmen t fasting and labs can be drawn that day at the hospital. If not, I expect these labs to be drawn within the week of ordering them. If they choose to have them drawn at another the institute of living they are to make sure that the labs are sent to my office. These labs will be reviewed once received and the patient will be called with any significan t abnormalit ies and how they should be addressed. If they would like a copy of their labs they are welcome to request these and we will send a copy to them. If their labs and vitamin levels are adequate at 12 months then they will need lab checks every 6mth-12mth . They consent to understand this plan and agree to comply. Prediabetes 199207291 R7 3.03 Hypothyroidism 25931649 E03.9 Fibromyalgia 951348319 M 79.7 [id number] TRACEY BARRETO NP, S [place] [address] ARIAS [address] [place] [address] 6 05/11/2023 08:29:08 05/11/2023 09:28:30 Dyspnea 712356065 R06.00 Essential hypertension 31745763 I10 Hyperlipidemia 96125687 E78.5 Morbid obesity 875322934 E66.01 Right bund le branch block 26184897 I45.10 Electrocar diogram abnormal 239761734 R94.31 Mitral isac ve regurgitation 00220559 I34.0 Diastolic dysfunction 35 33183 I51.9 Obesity 923453325 E66.9 Sinus bradycardia 626751 05 R00.1 Hypothyroidism 69240385 E03.9 [id number] Grady Mcadams MD [address] ARIAS [address] [place] [address] 6 05/31/2023 08:34:26 05/31/2023 08:34:47 Bradycardia 18850820 R00.1 EKG Interpreta tion: EKG dated 05/10/23 revealed sinus bradycardi a, right bundle branch block. ABNORMAL. [id number] TRACEY BARRETO NP, S [address] ARIAS [address] [place] [address] 6 07/06/2023 13:21:10 07/06/2023 14:12:03 Hypothyroidism 27342428 E03.9 Chest pain 89732098 R07. 9 Essential hypertension 54653821 I10 Sinus bradycardia 156149 05 R00.1 Hyperlipidemia 40890004 E78.5 Morbid obesity 597854086 E66.01 Mitral isac ve regurgitation 81396781 I34.0 Right bund le branch block 21018718 I45.10 Electrocar diogram abnormal 318019192 R94.31 Dyspnea 457883668 R06.00 Diastolic dysfunction 35 86539 I51.9 Obesity 358281965 E66.9 [id number] Grady Mcadams MD [address] [place] [address] 07/27/2023 13:59:39 07/27/2023 13:59:59 Essential hypertension 37730839 I10 EKG Interpreta tion 07/27/23: EKG dated 07/06/23 revealed sinus bradycardi a. Right bundle branch block/left axis johnny block. Bifascicul ar block. Poor R wave progressio n/low voltage (chronic pulmonary pattern) with nonspecifi c ST/T wave changes. Abnormal. Heart rate 57. [id number] Miko Monroy, DNP, DRAPERY AND UPHOLSTERY MEASURER, WEIGHT TESTER-C [facility] Bariatric s and Adv Surg [address] [facility] [address] [place] [address] 08/03/2023 15:01:08 08/03/2023 15:49:45 History of bariatric surgical procedure 696871892 Z98.84 Advised qid intake 50% protein 0403-4336 calories/d y less than 100 carbs/dy Patient is to have bariatric vitamin lab panel. Patient was reassured on today's visit. Dialogue content in great detail regarding the benefits of proper diet as well as regular and routine exercise. In regards to exercise, we discussed reaching target heart rate for least 20 minutes 3 times a week. We also highlighte d the importance of staying well hydrated. Proper handwashin g was also encouraged . Patient was advised to keep in close contact with their primary care provider and/or any specialty provider (s). We will contact patient with any deficienci es. Advised her to take PPI per recommenda tions. Intentiona l weight loss 495366074 R63.8 History of gastrectomy 066169871 Z90.3 Advised qid intake 50% protein 2668-0541 calories/d y less than 100 carbs/dyLo ng discussion today of InBody results including PBF(percen t body fat) SMM (skeletal muscle mass) Visceral fat level level BMR Segmental Fat Analysis and Segmental Lean Analysis.E ncouraged pt to take minimal calories as per BMR and to anticipate changes in SMM and PBF values not just total weight.Fol low-up with Repeat HAN in 3mth suggested Patient is status post bariatric surgery and at increased risk for vitamin deficienci es and malnutriti on. Bariatric vitamin panel ordered today. Patient will be contacted to correct any vitamin deficienci es. Essential hypertension 35467883 I10 Hyperlipidemia 66595696 E78.5 Hypothyroidism 41608997 E03.9 Fibromyalgia 061990666 M 79.7 Morbid obesity 865248886 E66.01 The patient is doing well. The patient is instructed to continue their vitamins as directed. They are to continue advancing their diet as directed.T mell may start exercising but keep lifting less than 25 pounds for 2 more weeks. I will see them back in 3 weeks or one month from surgery. We will order their first set of labs at that time.I summarized the expectatio ns for the upcoming year. We will check labs at their one month visit from surgery, 3 months from surgery as well as at 6, 9, and 12 months from surgery. These labs will be ordered on the day of their appointmen t. They have the option to come to the appointmen t fasting and labs can be drawn that day at the hospital. If not, I expect these labs to be drawn within the week of ordering them. If they choose to have them drawn at another the [facility] of [facility] they are to make sure that the labs are sent to my office. These labs will be reviewed once received and the patient will be called with any significan t abnormalit ies and how they should be addressed. If they would like a copy of their labs they are welcome to request these and we will send a copy to them. If their labs and vitamin levels are adequate at 12 months then they will need lab checks every 6mth-12mth . They consent to understand this plan and agree to comply. Osteoarthritis 639379672 M19.90 Prediabetes 802930149 R7 3.03 Unintentio nal weight gain 9825198448 73795 R63.5 Nausea 962512003 R11.0 [id number] Miko Monroy, DNP, DRAPERY AND UPHOLSTERY MEASURER, WEIGHT TESTER-C [facility] [place] [facility] [address] [facility] [address] [place] [address] 11/23/2023 15:01:36 11/23/2023 15:41:39 History of bariatric surgical procedure 723475369 Z98.84 Advised qid intake 50% protein 0671-6855 calories/d y less than 100 carbs/dy Patient is to have bariatric vitamin lab panel. Patient was reassured on today's visit. Dialogue content in great detail regarding the benefits of proper diet as well as regular and routine exercise. In regards to exercise, we discussed reaching target heart rate for least 20 minutes 3 times a week. We also highlighte d the importance of staying well hydrated. Proper handwashin g was also encouraged . Patient was advised to keep in close contact with their primary care provider and/or any specialty provider (s). We will contact patient with any deficienci es. Advised her to take PPI per recommenda tions. Intentiona l weight loss 790746582 R63.8 History of gastrectomy 814699673 Z90.3 Advised qid intake 50% protein 0798-6910 calories/d y less than 100 carbs/dy Long discussion today of InBody results including PBF(percen t body fat) SMM (skeletal muscle mass) Visceral fat level level BMR Segmental Fat Analysis and Segmental Lean Analysis. Encouraged pt to take minimal calories as per BMR and to anticipate changes in SMM and PBF values not just total weight. Follow-up with Repeat HAN in 3mth suggested Patient is status post bariatric surgery and at increased risk for vitamin deficienci es and malnutriti on. Bariatric vitamin panel ordered today. Patient will be contacted to correct any vitamin deficienci es. Essential hypertension 07764424 I10 Fibromyalgia 861676127 M 79.7 Hyperlipidemia 55640658 E78.5 Hypothyroidism 27266539 E03.9 Morbid obesity 115638784 E66.01 [id number] MD MONICO Vaca [address] [address] 07/24/2024 13:21:25 07/24/2024 14:31:47 Pain of right hip joint 8530058646 15106 M25.551 Bursitis of right hip 77 4278177 M70.71 Health Concerns Section Related Observation LastModified by Organization Detai ls LastModified Time None Recorded Concern Status LastModified by Organization Details LastModified Time None Recorded Advance Directives Directive Y: Payers Insurance Date Sequence Insurance Name Policy Number Policy Brock Covered Member ID Brock Member ID Guarantor Name 05/19/2024 1 [place] [id number] Nelia Silva [id number] Nelia Silva 07/23/2024 1 [employer]ANGELA [employer] [employer] [place] [id number] Nelia Silva [id number] Nelia Silva Notes Date Note Type Note Provider Name and Address Organization Details Recorded Time 07/06/2023 text/html Nelia is a 58-year-old female who presents today as a new patient. The patient has a history significant for morbid obesity, mitral regurgitation, hypothyroidism, hyperlipidemia, and hypertension. Since our last visit, the patient's saw her thyroid specialist, Dr. Cruz in [facility]. The patient's thyroid medication has been adjusted. The patient reports that she continues to have fatigue, decreased resting heart rate, intermittent palpitations, and anterior chest wall discomfort. The patient has otherwise been doing reasonably well. The patient's symptoms are intermittent, mild, and stable. No other complaints or concerns. TRACEY BARRETO NP, S [address] [facility],[address], [place], [address], [facility] 07/06/2023 17:09:44 08/03/2023 text/html ROS as noted in the HPI Patient presents the office today for routine 9 month follow-up status post bariatric gastric sleeve surgery ( 2021 ). Patient doing well. Reports q.i.d. small meal intake. Reports 70-100g/dy protein intake and good hydration.Patient is drinking 64 ounces of water a day.Daily Calories 900-1100Taking routine vitamins as advised.Heartburn/ gastroesophageal reflux:deniesPt Denies : abdominal pain, prandial issues Nausea, Vomiting, bowel or bladder issuesTotal Weight gain Since last office visit has been 2.2 lbsPt is happy with their quality of life after Weight loss Surgery. Today's InBody reveals a skeletal muscle mass = 65.9 lb,body fat mass = 117.5 lb,BMI = 39.3Percent body fat = 49.7Basal Metabolic Rate = 1534 kilo calories Miko Monroy, DNP, DRAPERY AND UPHOLSTERY MEASURER, WEIGHT TESTER-C [address] [facility], [place], [address], [facility] & [place] 08/03/2023 15:42:47 11/23/2023 text/html ROS as noted in the HPI Patient presents the office today for routine 12 month follow-up status post bariatric gastric sleeve surgery ( 2021). Patient doing well. Reports q.i.d. small meal intake. Reports >70g/dy protein intake and good hydration.Patient is drinking 64 ounces of water a day.Daily Calories 1200Taking routine vitamins as advised.Heartburn/ gastroesophageal reflux: deniesPt Denies : abdominal pain, prandial issues Nausea, Vomiting, bowel or bladder issuesTotal Weight loss Since last office visit has been 1 lbsPt is happy with their quality of life after Weight loss Surgery. Today's InBody reveals a skeletal muscle mass = 65.3 lb,body fat mass = 118.0 lb,BMI = 39.2Percent body fat = 50.1Basal Metabolic Rate = 1520 kilo calories Miko Monroy, DNP, DRAPERY AND UPHOLSTERY MEASURER, WEIGHT TESTER-C [address] [facility], [place], [address], [facility] & [place] 11/23/2023 15:56:06 07/24/2024 text/html ROS as noted in the HPI Pt is here for rt lateral hip pain that is consistent with bursitis. She has pain that comes and goes with no groin pain. She reports the area is sore to touch. She has had left hip bursa inj's in the past. She also reports the left is starting to hurt. We are getting pelvis Xrays today. [id number] JESSICA ALMONTE, [address] [facility],[address], [place], [address], [place] [facility] & [place] 07/25/2024 07:25:33 OBGyn Episode No OBEpisode recorded.
--- OUTSIDE RECORDS SUMMARY | 2025-08-01 12:55 | XMS_ITS | Clinical Summary ---
Author Organization [facility] , [facility] Address [address] [place] [address] Phone Care Team Providers Care Sensitized Paper Tester Name Role Phone Faisal GAN, Kj Unavailable [phone] Devorah Thompson APRN Unavailable [phone] Reason for Visit and Chief Complaint [facility] Problems Includes: Problems addressed during this encounter and other active Problems All Visits Onset Date Resolved Date Provider Condition S tatus Joint Pain Left Knee 06/16/2022 Kyung diaz PA-C Active Last Documented On 2 2:51PM ; [facility] Plan of Treatment No Plan of Treatment Recorded Assessments Includes: Assessments from this encounter No Assessments Recorded Medical Equipment - Implanted Devices Includes: Current Devices No Medical Equipment Recorded Medications Includes: Medications discussed during this encounter and other current Medications Current Medications (continue as prescribed) Topiramate ER 100 MG Oral Capsule Extended Release 24 Hour 06/16/2022 Provider: Diagnosis: Last Documented On 2 3:28PM By Fidelia Henao ; [facility], [facility] Monjuvi 200 MG Intravenous Solution Reconstituted 05/31 Provider: Diagnosis: Last Documented On 2 3:28PM By Fidelia eHnao ; [facility], [facility] [place] Thyroid 120 MG Oral Tablet 06/03/2022 Provide r: Devorah Thompson APRN Diagnosis: Last Documented On 2 2:51PM By Fidelia Henao ; [facility], [facility] Rosuvastatin Calcium 5 MG Oral Tablet 05/21/2022 Pro vider: Devorah Thompson APRN Diagnosis: Last Documented On 2 2:51PM By Fidelia Henao ; [facility], [facility] Medications Administered Includes: Administered Medications from this encounter No Administered Medications Recorded Results Includes: Results discussed during this encounter No Results Recorded For Specified Dates History of Present Illness Includes: History of Present Illness from this encounter No History of Present Illness Recorded Social History No Social History Recorded - Smoking Status Unknown Medical History Includes: Medical History addressed during this encounter No Medical History Recorded Family History Includes: Family History addressed during this encounter No Family History Recorded Review of Systems Includes: Review of Systems from this encounter No Review of Systems Recorded Mental Status Includes: Mental Status from this encounter No Mental Status Recorded Functional Status Includes: Functional Status from this encounter No Functional Status Recorded Physical Exam Includes: Physical Exam from this encounter No Physical Exam Recorded Allergies Includes: Active Allergies Substance Type Reaction Onset Date Resolved Date Statu s Percocet Allergy 06/16/2022 Active Last Documented On 2 1:14PM ; [facility], [facility] Keflex Allergy Skin Rashes / Eruption of skin 2 Active Last Documented On 2 1:14PM ; [facility] HYDROcodone-Acetaminophen Allergy Shortness of Breath / Dy spnea 06/16/2022 Active Last Documented On 2 1:14PM ; [facility], [facility] Encounters Encounter Provider Location Date Check-In Time Check-Out Time Diagnosis [facility] Kj Malone MD Surgery 08/11/2022 8:21AM 11:59PM Insurance Includes: Active Insurance Policies Plan Name Member ID Group # Subscriber Relationship Effect marybel Dates 1 - [facility] [id number] Nelia Diaz Silva Self 10/31/2021 - Unknown Clinical Notes Includes: Clinical Notes from this encounter No Clinical Notes Recorded
--- OUTSIDE RECORDS SUMMARY | 2025-08-01 12:55 | XMS_ITS | Clinical Summary ---
Author Organization [facility] Address [address] [place] [address] Phone Care Team Providers Care [facility] Name Role Phone Tomy Staley Katya Primary Care Provider [phone] Allergies Active Allergy Reactions Criticality Noted Date [...] on file Sexual Orientation Not on file Last Filed Vital Signs Vital Sign Reading [...] patient's age to complete this topic Insurance [facility] PPO [facility] PPO [employer] GENERIC Care Teams [facility] Relationship Specialty Start Date End Date Tomy Staley [address] [place] [id number] PCP - General Family Medicine 09/17/17
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
== END 2025-08-01 23:59 | disposition home or self-care (01) ==
LOC: RAD 12:52
PROVIDERS: PCP Nurse Practitioner Family; Visit Provider Nurse Practitioner Family
DX: M51.04 Intervertebral disc disorders with myelopathy, thoracic region (principal); M51.369 Other intervertebral disc degeneration, lumbar region without mention of lumbar back pain or lower extremity pain; M99.73 Connective tissue and disc stenosis of intervertebral foramina of lumbar region; V89.2XXA Person injured in unspecified motor-vehicle accident, traffic, initial encounter
CPT/HCPCS: 72146; 72148

== ENCOUNTER 2025-08-15 15:27 | Outpatient (CLI) | payer BC, SELFPAY ==
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
--- OUTSIDE RECORDS SUMMARY | 2025-08-15 15:30 | XMS_ITS | Continuity of Care Document ---
Author Organization [place] - Stephanie Stevens [facility] Address [address] [place] [address] Care Team Providers Care Motion Graphics Designer Name Role Phone MYRIAM, THAIS BROWN Primary Care Provider [phone] ANTOINETTE HALL Referring Provider [phone] TAMERA DUARTE Referring Provider Assessment No assessment recorded. Plan of Treatment Reminders Order Date Submit Date Provider Last Modified By Organization Details Last Modified Time Details Appointments None record ed. Lab CBC w/ auto diff 025 06/20/20 [place] [facility], [address], [place], [place], [address], 5 08:10:22 Referral None record ed. Procedures None record ed. Surgeries None record ed. Imaging None record ed. Medication Orders None record ed. Patient TargetsNo targets recorded. Patient InstructionsNo instructions recorded. Reason for Referral None Reported. Results Created Date Observation Date Name Description Value Unit Range Abnormal Flag Note LastModifiedBy Organization Detail LastModifiedTime 06/20/2006/21/2025 CBC WITH DIFFE RENTI AL/PL ATELE T WBC 5.3 x10e3 /uL 3.4-10 .8 normal Not Available [facility] ([facility]) [address] [facility], [place], [address], 06/21/2025 08:10:22 06/20/20 25 06/21/2025 CBC WITH DIFFE RENTI AL/PL ATELE T RBC 5.13 x10e6 /uL 3.77-5 .28 normal Not Available [facility] ([facility]) [address] [place], [address], 06/21/2025 08:10:22 06/20/20 25 06/21/2025 CBC WITH DIFFE RENTI AL/PL ATELE T hemoglobin 15.1 g/dL 11.1-1 5.9 normal Not Available [facility] ([facility]) [address] [place], [address], 06/21/2025 08:10:22 06/20/20 25 06/21/2025 CBC WITH DIFFE RENTI AL/PL ATELE T hematocrit 47.0 % 34.0-4 6.6 above high normal Not Available [facility] ([facility]) [address] [place], [address], 06/21/2025 08:10:22 06/20/20 25 06/21/2025 CBC WITH DIFFE RENTI AL/PL ATELE T MCV 92 fL 79-97 normal Not Available [facility] ([facility]) [address] [place], [address], 06/21/2025 08:10:22 06/20/20 25 06/21/2025 CBC WITH DIFFE RENTI AL/PL ATELE T MCH 29.4 pg 26.6-3 3.0 normal Not Available [facility] ([facility]) [address] [place], [address], 06/21/2025 08:10:22 06/20/20 25 06/21/2025 CBC WITH DIFFE RENTI AL/PL ATELE T MCHC 32.1 g/dL 31.5-3 5.7 normal Not Available [facility] ([facility]) [address] [place], [address], 06/21/2025 08:10:22 06/20/20 25 06/21/2025 CBC WITH DIFFE RENTI AL/PL ATELE T RDW 13.9 % 11.7-1 5.4 Not Available [facility] ([facility]) [address] [facility], [place], [address], 06/21/2025 08:10:22 06/20/20 25 06/21/2025 CBC WITH DIFFE RENTI AL/PL ATELE T platelets 209 x10e3 /uL 150-45 0 normal Not Available [facility] ([facility]) [address] [facility], [place], [address], 06/21/2025 08:10:22 06/20/20 25 06/21/2025 CBC WITH DIFFE RENTI AL/PL ATELE T neutrophils 78 % not estab. normal Not Available [facility] ([facility]) [address] [facility], [place], [address], 06/21/2025 08:10:22 06/20/20 25 06/21/2025 CBC WITH DIFFE RENTI AL/PL ATELE T lymphs 13 % not estab. normal Not Available [facility] ([facility]) [address] [facility], [place], [address], 06/21/2025 08:10:22 06/20/20 25 06/21/2025 CBC WITH DIFFE RENTI AL/PL ATELE T monocytes 6 % not estab. normal Not Available [facility] ([facility]) [address] [facility], [place], [address], 06/21/2025 08:10:22 06/20/20 25 06/21/2025 CBC WITH DIFFE RENTI AL/PL ATELE T eos 2 % not estab. normal Not Available [facility] ([facility]) [address] [facility], [place], [address], 06/21/2025 08:10:22 06/20/20 25 06/21/2025 CBC WITH DIFFE RENTI AL/PL ATELE T basos 1 % not estab. normal Not Available [facility] ([facility]) [address] [facility], [place], [address], 06/21/2025 08:10:22 06/20/20 25 06/21/2025 CBC WITH DIFFE RENTI AL/PL ATELE T immature cells MEDIUM CYCLE SALESPERSON Not Available [facility]) [address] [facility], [place], [address], 06/21/2025 08:10:22 06/20/20 25 06/21/2025 CBC WITH DIFFE RENTI AL/PL ATELE T neutrophils (absolute) 4.2 x10e3 /uL 1.4-7. 0 normal Not Available [facility] ([facility]) [address] [place], [address], 06/21/2025 08:10:22 06/20/20 25 06/21/2025 CBC WITH DIFFE RENTI AL/PL ATELE T lymphs (absolute) 0.7 x10e3 /uL 0.7-3. 1 normal Not Available [facility] ([facility]) [address] [place], [address], 06/21/2025 08:10:22 06/20/20 25 06/21/2025 CBC WITH DIFFE RENTI AL/PL ATELE T monocytes(ab solute) 0.3 x10e3 /uL 0.1-0. 9 normal Not Available [facility] ([facility]) [address] [place], [address], 06/21/2025 08:10:22 06/20/20 25 06/21/2025 CBC WITH DIFFE RENTI AL/PL ATELE T eos (absolute) 0.1 x10e3 /uL 0.0-0. 4 normal Not Available [facility] ([facility]) [address] [place], [address], 06/21/2025 08:10:22 06/20/20 25 06/21/2025 CBC WITH DIFFE RENTI AL/PL ATELE T baso (absolute) 0.0 x10e3 /uL 0.0-0. 2 normal Not Available [facility] ([facility]) [address] [facility], [place], [address], 06/21/2025 08:10:22 06/20/20 25 06/21/2025 CBC WITH DIFFE RENTI AL/PL ATELE T immature granulocytes 0 % not estab. Not Available [facility] ([facility]) [address] [facility], [place], [address], 06/21/2025 08:10:22 06/20/20 25 06/21/2025 CBC WITH DIFFE RENTI AL/PL ATELE T immature grans (abs) 0.0 x10e3 /uL 0.0-0. 1 Not Available [facility] ([facility]) [address] [facility], [place], [address], 06/21/2025 08:10:22 06/20/20 25 06/21/2025 CBC WITH DIFFE RENTI AL/PL ATELE T NRBC MEDIUM CYCLE SALESPERSON Not Available [facility] ([facility]) [address] [facility], [place], [address], 06/21/2025 08:10:22 06/20/20 25 06/21/2025 CBC WITH DIFFE RENTI AL/PL ATELE T hematology comments: MEDIUM CYCLE SALESPERSON Not Available [facility]) [address] [facility], [place], [address], 06/21/2025 08:10:22 08/01/20 25 08/01/2025 MRI, lumba r spine , w/o contr ast No observ ation record ed. [email or web address] [address], [place], [address], 08/05/2025 14:59:05 08/01/20 25 08/01/2025 MRI, thora cic spine , w/o contr ast No observ ation [facility] ed. [facility] [address], [place], [address], 08/05/2025 15:40:29 Result Notes None recorded. Problems Name Problem SNOMED Code Status Onset Date Resolution Date Notes Provider Name and Address Organization Details Recorded Time Hyperlipi demia 45503966 Active Maribel Sorto null, [place] - [facility] 3 16:18:08 Mass of left ovary 413023001314 39578 Active Maribel Sorto null, [place] - [facility] 3 16:18:08 Bradycard ia 86165332 Active Maribel Sorto null, [place] - [facility] 3 16:18:08 Fatigue 76607040 Active Maribel Sort[place] null, [place] - [facility] 3 16:18:09 Hypothyro idism 79947651 Active 2015 Maribel Sorto null, [place] - [facility] 3 16:18:08 Fibromyal lottie 563123651 Active 2015 Maribel Sorto null, [place] - [facility] 3 16:18:08 Colitis 95504299 Active 2015 Maribel Sorto null, [place] - [facility] 3 16:18:09 Chronic back pain 281533228 Active 2015 Maribel Sorto null, [place] - [facility] 3 16:18:08 Pain of hip region 70077230 Active 2015 Maribel Sorto null, [place] - [facility] 3 16:18:08 Pelvic mass 98822139 Active 2017 Maribel Sorto null, [place] - [facility] 3 16:18:09 Granuloma annulare 30167849 Active 2019 Maribel Sorto null, [place] - [facility] 3 16:18:09 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 per culture Maribel Sorto null, [place] - [facility] 3 16:18:09 Acquired hypothyro idism 076416775 Active 2020 Maribel Sorto null, [place] - [facility] 3 16:18:08 Vitamin D deficienc y 96137044 Active 2020 Maribel Sort[place] null, [place] - [facility] 3 16:18:08 Mixed hyperlipi demia 405534509 Active 2020 Maribel Macario null, [place] - [facility] 3 16:18:08 Gastroeso phageal reflux disease without esophagit is 891004791 Active 2020 Maribel Mac[place] null, [place] - [facility] 3 16:18:08 History of bariatric surgical procedure 399400970 Active 2022 Maribel Macario null, [place] - [facility] 3 16:18:09 Problem Notes None recorded. Procedures Surgical History Date Name Laterality Status Provider Name and Address Organization Details Recorded Time 024 Date of Last Mammogram completed Smita Boswell [place] - [facility] 08/01/2025 08:47:51 023 Medication Reconcilliation completed Maribel Sorto [place] - [facility] 04/26/2023 16:16:53 021 Date of Last Colonoscopy completed Kay Ulloa RN [address], [place], [address], [place] [facility] 02/27/2021 11:38:04 021 Diastolic B/P 80-89 mm Hg completed Mally Garcia [place] - [facility] 12/24/2020 13:04:11 021 Systolic B/P 130-139 mm Hg completed Mally Garcia [place] - [facility] 12/24/2020 13:04:05 021 Diastolic B/P 80-89 mm Hg completed Gretchen Chery APRN [address], [place], [address], [place] [facility] 11/04/2020 11:37:37 021 Systolic B/P 130-139 mm Hg completed Gretchen Chery APRN [address], [place], [address], [place] [facility] 11/04/2020 11:37:32 021 Date of Last Pap Smear completed Gretchen Chery APRN [address], [place], [address], [place] [facility] 11/07/2020 08:23:07 020 Systolic B/P less than 130 mm Hg completed Mally BEDOLLA - [facility] 09/03/2020 17:53:00 020 Diastolic B/P less than 80 mm Hg completed Mally BEDOLLA - [facility] 09/03/2020 17:52:56 020 Systolic B/P less than 130 mm Hg completed Mally BEDOLLA - [facility] 06/04/2020 14:48:51 020 Diastolic B/P less than 80 mm Hg completed Mally BEDOLLA - [facility] 06/04/2020 14:48:49 018 Diagnostic Laparoscopy completed Elena BEDOLLA - [facility] 03/08/2018 13:43:58 018 Salpingo-oophorecto my, Left completed Elena BEDOLLA - [facility] 03/08/2018 13:44:06 996 delivery only completed Amanda BEDOLLA - [facility] 11/04/2020 09:15:51 988 Caesarean Section completed Amanda BEDOLLA - [facility] 11/04/2020 09:15:38 Tubal Ligation completed Amanda BEDOLLA - [facility] 11/04/2020 09:14:53 Dilation and Curettage, sharp completed Smitasimone Boswell [place] - [facility] 01/04/2018 12:55:06 Endoscopy completed Smitasimone BEDOLLA - [facility] 01/04/2018 12:55:21 Bartholin Gland Marsupialization completed Smitasimone BEDOLLA - [facility] 01/04/2018 12:55:30 Colonoscopy completed Elena BEDOLLA - [facility] 01/04/2018 13:56:42 Imaging Results None recorded. Procedure Notes None recorded. Medical Equipment None Reported. Allergies Allergen ID Allergen Name Allergen Category Reaction Reaction Severity Criticality Documentation Date Start Date Code Code System Note Provider Name and Address Organization Details Recorded Time 902011 acetamino phen medicatio n Not available Not available Not available 02/27/20212020 161 RxNorm unkno wn Mally Garcia null, [place] - [facility] 15:57:19 964724 cephalexi n medicatio n rash mild Not available 02/27/20212022 2231 RxNorm Maribel Sorto null, [place] - [facility] 16:17:50 119345 oxycodone medicatio n Not available Not available Not available 02/27/20212022 7804 RxNorm Maribel monae, [place] - [facility] 3 16:17:50 991411 hydrocodo ne Not available Not available Not available Not available 04/26/20232022 5489 RxNorm Maribel monae, [place] - [facility] 3 16:17:50 560097 propofol medicatio n Not available Not available Not available 04/26/20232022 8782 RxNorm Maribel Sorto null, [place] - [facility] 3 16:17:50 05773 Keflex medicatio n Not available Not available Not available 08/06/2016200816 7 RxNorm React ion: rash, diarr hea; Not Available [facility] 6 09:12:29 10679 acetamino phen / oxycodone medicatio n Not available Not available Not available 08/06/2016201318 3 RxNorm React ion: incre ase in B/P diffi culty breat elizabeth; Comme nt: OnSet Date: 04/19 00; Not Available [facility] 6 09:31:51 26489 homatropi ne / hydrocodo ne medicatio n respirato ry distress Not available Not available 08/06/20162014 09066 4 RxNorm Not Available [facility] 6 10:03:41 78880 acetamino phen / hydrocodo ne medicatio n respirato ry distress Not available Not available 08/06/2016201418 2 RxNorm Not Available [facility] 6 10:03:41 Medications Name Sig Start [...] completed Not Available Not Available Not Available [place] Thyroid 60 mg tablet TAKE ONE (1) TABLET BY ORAL ROUTE DAILY FOR 30 DAYS 02/01 completed Not Available Not Available Not Available levothyro xine 137 mcg tablet 0.137 mg by oral route. 02/23 completed Not Available Not Available Not Available [place] Thyroid 90 mg tablet TAKE ONE (1) [...] Not Available Not Available No t Available [place] Thyroid 120 mg tablet TAKE ONE (1) [...] Not Available phentermi ne 37.5 mg tablet TAKE ONE (1) TABLET EVERY DAY BY ORAL ROUTE. active Not Available Not Available No t Available acetamino phen 300 mg-codein e 30 mg [...] nued on: 08/20/20 15 1:12PM;U ser: [email or web address]; Completi on: 05/14/20 15;Indic ation: Burn Wound [...] ser: [email or web address]; Est. Completi on: 11/23/19 16;Pharm acyVerif ied: [...] ation: Major Depressi ve Disorder - (05.2962 00);Phar Dev fied: 08/01/20 13 2:36PM Not Available Not [...] 15;Indic ation: Fibromya lgia - (13.7291 02);Phar [email or web address] fied: 06/12/20 14 4:44PM Not Available Not [...] 0.5 mg/0.5 mL subcutane ous pen injector INJECT 0.5 MG EVERY WEEK BY SUBCUTAN EOUS ROUTE. active Not Available Not Available No t Available Mounjaro 5 mg/0.5 mL subcutane ous pen [...] and Address Organization Details Last Updated DateTime 165.1 cm 32.8 kg/m2 56931.7 g 0 66 /min 98.1 [degF] 98 % 98 % 18 /min 122/78 mm[Hg] Maribel Sorto [place] - [facility] 5 09:12:52 Social History Question Answer Notes LastModified by Organizat ion Details LastModified Time Tobacco Smoking Status Former Smoker Not Available [facility] 08/15/2020 03:17:09 Able To Swim? Yes Information not available 09/02/2016 Do You Have An Advance Directive? No [id number] Information n ot available 08/15/2020 Do You Wear A Helmet When Biking? No [id number] Information not available 08/15/2020 Are You Blind Or Do You Have Difficulty Seeing? No [id number] Information n ot available 08/15/2020 Is Blood Transfusion Acceptable In An Emergency? Yes [id number] Information not available 08/15/2020 What Is Your Level Of Caffeine Consumption? Moderate [id number] Information not available 08/15/2020 How Much Tobacco Do You Chew? None [id number] Information not available 08/15/2020 In The 14 [...] Do You Have Serious Difficulty Hearing? No [id number] Information not available 08/15/2020 What Type Of Diet Are You Following? REGULAR [id number] Information n ot available 08/15/2020 Which Illicit Or Recreational Drugs Have You Used? None [id number] Information not available 08/15/2020 Have You Processed [...] Or The Highest Degree You Have Received? [id number] Information not available 11/04/2020 How Many Days Of Moderate To Strenuous Exercise, Like A Brisk Walk, Did You Do In The Last 7 Days? 0 [email or web address] Information not available 11/04/2020 On Those Days That You Engage In Moderate To Strenuous Exercise, How Many Minutes, On Average, Do You Exercise? 0 [email or web address] Information not available 11/04/2020 Swimming/diving Yes [facility] Informati on not available 12/09/2016 Have There Been Any Changes To Your Family Or Social Situation? No Information no t available 12/09/2023 How Hard Is It For You To Pay For The Very Basics Like Food, Housing, Medical Care, And Heating? [id number] Information not available 11/04/2020 What Is The Fluoride Status Of Your Home? Unknown Information not available 12/09/2023 When Did You Quit Smoking? 1-5yearssince lastcigarette [id number] Information not available 08/15/2020 Hard Of Hearing [...] Do You Have A Medical Power Of Conservation Scientist? No Information not available 12/09/2023 What Was The Date Of Your Most Recent Tobacco Screening? 06/20/2025 Information not available 06/20/2025 How Many Children Do You Have? 2 [id number] Information not available 08/15/2020 Performs Monthly Self-breast Exam? No Information no t available 01/04/2018 Do You Use Protection During Sex? No [id number] Information not available 08/15/2020 What Is Your Relationship Status? [id number] Information not available 08/15/2020 Seat Belts Used Routinely Yes Information not available 09/02/2016 Are You Sexually Active? Yes [id number] Information not available 08/15/2020 Smoke Alarm In Home Yes Information not available 09/02/2016 Do You Have Smoke And Carbon Monoxide Detectors In Your Home? Yes Information not available 12/09/2023 At What Age Did You Start Smoking Tobacco? 23 [id number] Information not available 08/15/2020 Are You Passively Exposed To Smoke? No Information no t available 09/02/2016 How Much Tobacco Do You Smoke? 0.5 PPD [id number] Information not available 08/15/2020 General Stress Level Low Information not available 09/02/2016 Do You Use Sunscreen Routinely? Yes [id number] Information not available 08/15/2020 Has Tobacco Cessation Counseling Been Provided? No [id number] Information not available 08/15/2020 How Many Years Have You Smoked Tobacco? 25 [id number] Information not available 08/15/2020 Do You Have Difficulty Walking Or Climbing Stairs? Yes [id number] Information not available 08/15/2020 Sex: Female Functional Status Question Answer Note LastModified by Organizat ion Details LastModified Time Do you use any illicit or recreational drugs? No Information not available 12/09/2023 What is your level of alcohol consumption? None [id number] Information not available 08/15/2020 Do you or have you ever used smokeless tobacco? Never used smokeless tobacco [id number] Information not available 08/15/2020 Are you currently employed? Yes [id number] Information not available 08/15/2020 Do you have transportation difficulties? No Information not available 12/09/2023 Are you able to walk independently without assistance or assistive devices? YESWOREST [id number] Information not available 08/15/2020 Do you have difficulty doing errands alone? No [id number] Information not available 08/15/2020 Are you able to care for yourself independently? Yes [id number] Information not available 08/15/2020 What is your occupation? [employer] Information not available 09/02/2016 Do you have difficulty dressing, bathing, grooming, or toileting? No [id number] Information not available 08/15/2020 Do you or have you ever used e-cigarettes or vape? Never used electronic cigarettes [id number] Information not available 08/15/2020 What is your exercise level? Occasional [id number] Information not available 08/15/2020 Mental Status Question Answer Note LastModified by Organizat ion Details LastModified Time Do you feel stressed (tense, restless, nervous, or anxious, or unable to sleep at night)? FD6798-2 [email or web address] Information not available 11/04/2020 Do you have difficulty concentrating, remembering or making decisions? No [id number] Information no t available 08/15/2020 Family History Relationship Description Onset Age of this Age Resolved Age Notes LastModified by Organization Details LastModified Time Father Hypertensive disorder Not available 2015 16:23:44 Father Hypercholest erolemia Not available 2015 16:24:17 Father Heart disease [email or web address] Not available 2020 09:13:48 Maternal Grandmother Hypertensive disorder Not available 2015 16:23:56 Maternal Grandmother Cerebrovascu lar accident [email or web address] Not available 04/2018 13:54:40 Mother Pulmonary emphysema Not available 2015 16:24:31 Paternal Grandfather Cerebrovascu lar accident Not available 12/2015 16:24:46 Paternal Grandmother Myocardial infarction Not available 09/02 16:25:17 Paternal Uncle Malignant neoplasm of urinary bladder Not available 2017 13:55:02 Paternal Uncle Malignant neoplasm of pharynx [email or web address] Not available 2017 13:55:16 Medical History Condition [...] colitis N Cerebrovascular Disease N Depression N Guillain-[place] N Sleep Apnea N Aneurysm N Bronchitis [...] Details Recorded Time Pneumococcal conjugate PCV20, polysaccharide [id number] conjugate, adjuvant, PF 025 cancelled patient objection Bindu Pozo, PLATE PAINTER [address], [place], [address], [place] - [facility] 08/01/2025 09:31:21 zoster recombinant 025 cancelled patient objection Bindu Pozo, PLATE PAINTER [address], [place], [address], [place] [facility] 08/01/2025 09:31:21 Influenza, split virus, trivalent, PF 025 cancelled patient objection Bindu Pozo, PLATE PAINTER [address], [place], [address], [place] [facility] 08/01/2025 09:31:21 COVID-19, mRNA, LNP-S, PF, 100 mcg/0.5mL dose or 50 mcg/0.25mL dose 022 completed Not Available [facility] 04/20/2023 14:12:37 Td (adult), 2 Lf tetanus toxoid, preservative free, adsorbed 998 completed Not Available [facility] 04/20/2023 14:12:37 Tdap 016 completed Not Available [facility] 04/20/2023 14:12:37 COVID-19, mRNA, LNP-S, PF, 100 mcg/0.5mL dose or 50 mcg/0.25mL dose 021 completed Not Available [facility] 04/20/2023 14:12:37 COVID-19, mRNA, LNP-S, PF, 100 mcg/0.5mL dose or 50 mcg/0.25mL dose 021 completed Not Available [facility] 04/20/2023 14:12:37 COVID-19, mRNA, LNP-S, PF, 100 mcg/0.5mL dose or 50 mcg/0.25mL dose 021 completed Not Available [facility] 04/20/2023 14:12:37 Influenza, split virus, quadrivalent, PF 019 cancelled patient objection [facility] 11/17/2019 03:56:06 Past Encounters Encounter ID Performer Location Encounter Start Date Encounter Closed Date Diagnosis/Indication Diagnosis SNOMED-CT Code Diagnosis ICD10 Code Diagnosis IMO Codes Diagnosis Note [id number] Bindu Pozo APRN [facility] [address] [place] [address] 06/20/2025 08:55:18 06/20/2025 09:40:34 History of bariatric surgical procedure 399207182 Z98.84 Full blood count outside reference range 551832793 R79.89 201410 labs Health Concerns Section Related Observation LastModified by Organization Detai ls LastModified Time None Recorded Concern Status LastModified by Organization Details LastModified Time None Recorded Payers Encounter Date Sequence Insurance Name Policy Number Policy Brock Covered Member ID Brock Member ID Guarantor Name 06/20/2025 1 [place] [id number] Nelia Silva [id number] Nelia Silva Notes Date Note Type Note Provider Name and Address Organization Details Recorded Time 06/20/2025 text/html 60 yr old female presents for lab work, needs mbc rechecked. Bindu Pozo, BENJAMIN [address], [place], [address], [place] - [facility] 06/20/2025 09:37:02 OBGyn Episode No OBEpisode recorded.
--- OUTSIDE RECORDS SUMMARY | 2025-08-15 15:30 | XMS_ITS | Data Portability ---
Author Organization [facility] Address [address] [place] [address] Care Team Providers Care Matcher Name Role Phone DEVORAH MIGUEL Primary Care Provider [phone] ANTOINETTE HALL Referring Provider TAMERA DUARTE Referring [...] Modified Time Details Appointments None recorded. Lab drug screen, urine 2024 025 [facility], [address] [facility], [place], [address], 09:42:12 CBC w/ auto diff 2024 025 [facility], [address], [place], [place], [address], 5 08:10:22 lipid panel, serum 2024 025 [facility], [address], [place], [place], [address], 5 11:08:23 vitamin D, 25-hydroxy, total, serum 2024 025 [facility], [address], [place], [place], [address], 5 11:08:23 TSH + free T4, serum 2024 025 [facility], [address], [place], [place], [address], 11:08:20 CMP, serum or plasma 2024 025 [facility], [address], [place], [place], [address], 11:08:22 CBC w/ auto diff 2024 025 [facility], [address], [place], [place], [address], 11:08:21 Referral None recorded. Procedures None recorded. Surgeries None recorded. Imaging MRI, lumbar spine, w/o contrast 2024 [facility] ([facility], [facility]), [address], [place], [address], 17:05:18 Medication Orders phentermine 37.5 mg tablet 2024 025 [facility], [address] [place] [address], [address], 09:30:52 Wegovy 0.5 mg/0.5 mL subcutaneou s pen injector 2024 [facility], [address] [place] [address] [place], [address], 09:30:51 Wegovy 0.25 mg/0.5 mL subcutaneou s pen injector 2024 025 [facility], [address] [place] [address], [address], 08:57:27 phentermine 37.5 mg tablet 2024 025 TAYL[facility], [address] [place] [address], [address], 08:07:15 Patient TargetsNo targets recorded. Patient Instructions Encounter Date Encounter Id Patient Instructions Last Modified By Organization Details Last Modified Time 05/13/2025 [id number] Treament Plan: Patient will start medication as directed. Patient will continue exercise, watch calorie intake, and follow up for weight check in 1 month. [email or web address] Not available 05/13/2025 13:58:33 08/01/2025 [id number] Treament Plan: Patient will start medication as [...] L 0.450- 4.500 normal Not Available [facility] ([facility]) [address] [facility], [place], [address], 05/14/2025 11:08:20 05/13/2005/14/2025 TSH+F REE T4 T4,free(dire ct) 1.33 NG/dL 0.82-1 .77 normal Not Available [facility] ([facility]) [address] [facility], [place], [address], 05/14/2025 11:08:20 05/13/20 25 05/14/2025 CBC WITH DIFFE RENTI AL/PL ATELE T WBC 3.2 x10e3 /uL 3.4-10 .8 below low normal Not Available [facility] ([facility]) [address] [facility], [place], [address], 05/14/2025 11:08:21 05/13/20 25 05/14/2025 CBC WITH DIFFE RENTI AL/PL ATELE T RBC 4.90 x10e6 /uL 3.77-5 .28 normal Not Available [facility] ([facility]) [address] [place], [address], 05/14/2025 11:08:21 05/13/20 25 05/14/2025 CBC WITH DIFFE RENTI AL/PL ATELE T hemoglobin 14.2 g/dL 11.1-1 5.9 normal Not Available [facility] ([facility]) [address] [facility], [place], [address], 05/14/2025 11:08:21 05/13/20 25 05/14/2025 CBC WITH DIFFE RENTI AL/PL ATELE T hematocrit 43.7 % 34.0-4 6.6 normal Not Available [facility] ([facility]) [address] [place], [address], 05/14/2025 11:08:21 05/13/20 25 05/14/2025 CBC WITH DIFFE RENTI AL/PL ATELE T MCV 89 fL 79-97 normal Not Available [facility] ([facility]) [address] [place], [address], 05/14/2025 11:08:21 05/13/20 25 05/14/2025 CBC WITH DIFFE RENTI AL/PL ATELE T MCH 29.0 pg 26.6-3 3.0 normal Not Available [facility] ([facility]) [address] [place], [address], 05/14/2025 11:08:21 05/13/20 25 05/14/2025 CBC WITH DIFFE RENTI AL/PL ATELE T MCHC 32.5 g/dL 31.5-3 5.7 normal Not Available [facility] ([facility]) [address] [facility], [place], [address], 05/14/2025 11:08:21 05/13/20 25 05/14/2025 CBC WITH DIFFE RENTI AL/PL ATELE T RDW 13.9 % 11.7-1 5.4 Not Available [facility] ([facility]) [address] [facility], [place], [address], 05/14/2025 11:08:21 05/13/20 25 05/14/2025 CBC WITH DIFFE RENTI AL/PL ATELE T platelets 156 x10e3 /uL 150-45 0 normal Not Available [facility] ([facility]) [address] [facility], [place], [address], 05/14/2025 11:08:21 05/13/20 25 05/14/2025 CBC WITH DIFFE RENTI AL/PL ATELE T neutrophils 59 % not estab. normal Not Available [facility] ([facility]) [address] [facility], [place], [address], 05/14/2025 11:08:21 05/13/20 25 05/14/2025 CBC WITH DIFFE RENTI AL/PL ATELE T lymphs 30 % not estab. normal Not Available [facility] ([facility]) [address] [facility], [place], [address], 05/14/2025 11:08:21 05/13/20 25 05/14/2025 CBC WITH DIFFE RENTI AL/PL ATELE T monocytes 9 % not estab. normal Not Available [facility] ([facility]) [address] [facility], [place], [address], 05/14/2025 11:08:21 05/13/20 25 05/14/2025 CBC WITH DIFFE RENTI AL/PL ATELE T eos 1 % not estab. normal Not Available [facility] ([facility]) [address] [place], [address], 05/14/2025 11:08:21 05/13/20 25 05/14/2025 CBC WITH DIFFE RENTI AL/PL ATELE T basos 1 % not estab. normal Not Available [facility] ([facility]) [address] [facility], [place], [address], 05/14/2025 11:08:21 05/13/20 25 05/14/2025 CBC WITH DIFFE RENTI AL/PL ATELE T immature cells VICE PRESIDENT OF SOFTWARE DEVELOPMENT Not Available [facility]) [address] [place], [address], 05/14/2025 11:08:21 05/13/20 25 05/14/2025 CBC WITH DIFFE RENTI AL/PL ATELE T neutrophils (absolute) 1.9 x10e3 /uL 1.4-7. 0 normal Not Available [facility] ([facility]) [address] [place], [address], 05/14/2025 11:08:21 05/13/20 25 05/14/2025 CBC WITH DIFFE RENTI AL/PL ATELE T lymphs (absolute) 1.0 x10e3 /uL 0.7-3. 1 normal Not Available [facility] ([facility]) [address] [place], [address], 05/14/2025 11:08:21 05/13/20 25 05/14/2025 CBC WITH DIFFE RENTI AL/PL ATELE T monocytes(ab solute) 0.3 x10e3 /uL 0.1-0. 9 normal Not Available [facility] ([facility]) [address] [place], [address], 05/14/2025 11:08:21 05/13/20 25 05/14/2025 CBC WITH DIFFE RENTI AL/PL ATELE T eos (absolute) 0.0 x10e3 /uL 0.0-0. 4 normal Not Available [facility] ([facility]) [address] [facility], [place], [address], 05/14/2025 11:08:21 05/13/20 25 05/14/2025 CBC WITH DIFFE RENTI AL/PL ATELE T baso (absolute) 0.0 x10e3 /uL 0.0-0. 2 normal Not Available [facility] ([facility]) [address] [facility], [place], [address], 05/14/2025 11:08:21 05/13/20 25 05/14/2025 CBC WITH DIFFE RENTI AL/PL ATELE T immature granulocytes 0 % not estab. Not Available [facility] ([facility]) [address] [facility], [place], [address], 05/14/2025 11:08:21 05/13/20 25 05/14/2025 CBC WITH DIFFE RENTI AL/PL ATELE T immature grans (abs) 0.0 x10e3 /uL 0.0-0. 1 Not Available [facility] ([facility]) [address] [place], [address], 05/14/2025 11:08:21 05/13/2005/14/2025 CBC WITH DIFFE RENTI AL/PL ATELE T NRBC [employer]ICE [employer]IDENT [employer] SOFTWARE DEVELOPMENT Not Available [facility] ([facility]) [address] [facility], [place], [address], 05/14/2025 11:08:21 05/13/2005/14/2025 CBC WITH DIFFE RENTI AL/PL ATELE T hematology comments: VICE PRESIDENT OF SOFTWARE DEVELOPMENT Not Available [facility] ([facility]) [address] [place], [address], 05/14/2025 11:08:21 05/13/20 25 05/14/2025 COMP. METAB OLIC PANEL (14) glucose 75 mg/dL 70-99 normal Not Available [facility] ([facility]) [address] [facility] [place], [address], 05/14/2025 11:08:22 05/13/20 25 05/14/2025 COMP. METAB OLIC PANEL (14) BUN 13 mg/dL 6-24 normal Not Available [facility] ([facility]) [address] [facility] [place], [address], 05/14/2025 11:08:22 05/13/20 25 05/14/2025 COMP. METAB OLIC PANEL (14) creatinine 0.86 mg/dL 0.57-1 .00 normal Not Available [facility] ([facility]) [address] [facility] [place], [address], 05/14/2025 11:08:22 05/13/20 25 05/14/2025 COMP. METAB OLIC PANEL (14) eGFR 78 mL/mi n/1.7 3 >59 normal Not Available [facility] ([facility]) [address] [place], [address], 05/14/2025 11:08:22 05/13/20 25 05/14/2025 COMP. METAB OLIC PANEL (14) BUN/creatini ne ratio 15 9-23 normal Not Available [facility] ([facility]) [address] [place], [address], 05/14/2025 11:08:22 05/13/20 25 05/14/2025 COMP. METAB OLIC PANEL (14) sodium 138 mmol/ L 134-14 4 normal Not Available [facility] ([facility]) [address] [place], [address], 05/14/2025 11:08:22 05/13/20 25 05/14/2025 COMP. METAB OLIC PANEL (14) potassium 3.9 mmol/ L 3.5-5. 2 normal Not Available [facility] ([facility]) [address] [place], [address], 05/14/2025 11:08:22 05/13/20 25 05/14/2025 COMP. METAB OLIC PANEL (14) chloride 105 mmol/ L 96-106 normal Not Available [facility] ([facility]) [address] [place], [address], 05/14/2025 11:08:22 05/13/20 25 05/14/2025 COMP. METAB OLIC PANEL (14) carbon dioxide, total 21 mmol/ L 20-29 normal Not Available [facility] ([facility]) [address] [place], [address], 05/14/2025 11:08:22 05/13/20 25 05/14/2025 COMP. METAB OLIC PANEL (14) calcium 9.1 mg/dL 8.7-10 .2 normal Not Available [facility] ([facility]) [address] [place], [address], 05/14/2025 11:08:22 05/13/20 25 05/14/2025 COMP. METAB OLIC PANEL (14) protein, total 6.3 g/dL 6.0-8. 5 normal Not Available [facility] ([facility] [address] [facility] [place], [address], 05/14/2025 11:08:22 05/13/20 25 05/14/2025 COMP. METAB OLIC PANEL (14) albumin 4.1 g/dL 3.8-4. 9 normal Not Available [facility] ([facility]) [address] [place], [address], 05/14/2025 11:08:22 05/13/20 25 05/14/2025 COMP. METAB OLIC PANEL (14) globulin, total 2.2 g/dL 1.5-4. 5 Not Available [facility] ([facility]) [address] [facility], [place], [address], 05/14/2025 11:08:22 05/13/20 25 05/14/2025 COMP. METAB OLIC PANEL (14) bilirubin, total 0.6 mg/dL 0.0-1. 2 normal Not Available [facility] ([facility]) [address] [facility] [place], [address], 05/14/2025 11:08:22 05/13/20 25 05/14/2025 COMP. METAB OLIC PANEL (14) alkaline phosphatase 90 IU/L 44-121 normal Not Available [facility] ([facility]) [address] [facility] [place], [address], 05/14/2025 11:08:22 05/13/20 25 05/14/2025 COMP. METAB OLIC PANEL (14) AST (SGOT) 38 IU/L 0-40 normal Not Available [facility] ([facility]) [address] [place], [address], 05/14/2025 11:08:22 05/13/20 25 05/14/2025 COMP. METAB OLIC PANEL (14) ALT (SGPT) 40 IU/L 0-32 above high normal Not Available [facility] ([facility]) [address] [place], [address], 05/14/2025 11:08:22 05/13/20 25 05/14/2025 LIPID PANEL cholesterol, total 199 mg/dL 100-19 9 normal Not Available [facility] ([facility]) [address] [place], [address], 05/14/2025 11:08:23 05/13/20 25 05/14/2025 LIPID PANEL triglyceride s 111 mg/dL 0-149 normal Not Available [facility] ([facility]) [address] [place], [address], 05/14/2025 11:08:23 05/13/20 25 05/14/2025 LIPID PANEL HDL cholesterol 51 mg/dL >39 normal Not Available [facility]) [address] [facility], [place], [address], 05/14/2025 11:08:23 05/13/20 25 05/14/2025 LIPID PANEL VLDL cholesterol henrique 20 mg/dL 5-40 Not Available [facility] ([facility]) [address] [place], [address], 05/14/2025 11:08:23 05/13/20 25 05/14/2025 LIPID PANEL LDL chol calc ([facility]) 128 mg/dL 0-99 above high normal Not Available [facility] ([facility]) [address] [place], [address], 05/14/2025 11:08:23 05/13/20 25 05/14/2025 LIPID PANEL LDL calc comment: VICE PRESIDENT OF SOFTWARE DEVELOPMENT Not Available [facility] ([facility]) [address] [facility], [place], [address], 05/14/2025 11:08:23 05/13/2005/14/2025 VITAM IN D, 25-HY DROXY vitamin D, [...] Medic ine). 2010. Dieta ry refer ence intak es for calci um and D. Anusha gonzalez [place]: [facility] Press . 2. Meek middleton [place], Doc cullen [place], [place]ushar off-F errar i SANTIAGO, et al. Evalu ation , treat ment, and preve ntion of vitam in D defic iency : an Endoc rine Socie ty clini henrique pract ice guide line. JCEM. 2010; 96(7) :1911 -30. Not Available [facility] ([facility]) [address] [facility], [place], [address], 05/14/2025 11:08:23 06/20/20 25 06/21/2025 CBC WITH DIFFE RENTI AL/PL ATELE T WBC 5.3 x10e3 /uL 3.4-10 .8 normal Not Available [facility] ([facility]) [address] [place], [address], 06/21/2025 08:10:22 06/20/20 25 06/21/2025 CBC WITH DIFFE RENTI AL/PL ATELE T RBC 5.13 x10e6 /uL 3.77-5 .28 normal Not Available [facility] ([facility]) [address] [facility], [place], [address], 06/21/2025 08:10:22 06/20/20 25 06/21/2025 CBC WITH DIFFE RENTI AL/PL ATELE T hemoglobin 15.1 g/dL 11.1-1 5.9 normal Not Available [facility] ([facility]) [address] [place], [address], 06/21/2025 08:10:22 06/20/20 25 06/21/2025 CBC WITH DIFFE RENTI AL/PL ATELE T hematocrit 47.0 % 34.0-4 6.6 above high normal Not Available [facility] ([facility]) [address] [place], [address], 06/21/2025 08:10:22 06/20/20 25 06/21/2025 CBC WITH DIFFE RENTI AL/PL ATELE T MCV 92 fL 79-97 normal Not Available [facility] ([facility]) [address] [place], [address], 06/21/2025 08:10:22 06/20/20 25 06/21/2025 CBC WITH DIFFE RENTI AL/PL ATELE T MCH 29.4 pg 26.6-3 3.0 normal Not Available [facility] ([facility]) [address] [facility], [place], [address], 06/21/2025 08:10:22 06/20/20 25 06/21/2025 CBC WITH DIFFE RENTI AL/PL ATELE T MCHC 32.1 g/dL 31.5-3 5.7 normal Not Available [facility] ([facility]) [address] [place], [address], 06/21/2025 08:10:22 06/20/20 25 06/21/2025 CBC WITH DIFFE RENTI AL/PL ATELE T RDW 13.9 % 11.7-1 5.4 Not Available [facility] ([facility]) [address] [place], [address], 06/21/2025 08:10:22 06/20/20 25 06/21/2025 CBC WITH DIFFE RENTI AL/PL ATELE T platelets 209 x10e3 /uL 150-45 0 normal Not Available [facility] ([facility]) [address] [place], [address], 06/21/2025 08:10:22 06/20/20 25 06/21/2025 CBC WITH DIFFE RENTI AL/PL ATELE T neutrophils 78 % not estab. normal Not Available [facility] ([facility]) [address] [place], [address], 06/21/2025 08:10:22 06/20/20 25 06/21/2025 CBC WITH DIFFE RENTI AL/PL ATELE T lymphs 13 % not estab. normal Not Available [facility] ([facility]) [address] [place], [address], 06/21/2025 08:10:22 06/20/20 25 06/21/2025 CBC WITH DIFFE RENTI AL/PL ATELE T monocytes 6 % not estab. normal Not Available [facility] ([facility]) [address] [facility], [place], [address], 06/21/2025 08:10:22 06/20/20 25 06/21/2025 CBC WITH DIFFE RENTI AL/PL ATELE T eos 2 % not estab. normal Not Available [facility] ([facility]) [address] [facility], [place], [address], 06/21/2025 08:10:22 06/20/20 25 06/21/2025 CBC WITH DIFFE RENTI AL/PL ATELE T basos 1 % not estab. normal Not Available [facility] ([facility]) [address] [place], [address], 06/21/2025 08:10:22 06/20/20 25 06/21/2025 CBC WITH DIFFE RENTI AL/PL ATELE T immature cells VICE PRESIDENT [employer] SOFTWARE DEVELOPMENT Not Available [facility] ([facility]) [address] [place], [address], 06/21/2025 08:10:22 06/20/20 25 06/21/2025 CBC WITH DIFFE RENTI AL/PL ATELE T neutrophils (absolute) 4.2 x10e3 /uL 1.4-7. 0 normal Not Available [facility] ([facility]) [address] [place], [address], 06/21/2025 08:10:22 06/20/20 25 06/21/2025 CBC WITH DIFFE RENTI AL/PL ATELE T lymphs (absolute) 0.7 x10e3 /uL 0.7-3. 1 normal Not Available [facility] ([facility]) [address] [place], [address], 06/21/2025 08:10:22 06/20/20 25 06/21/2025 CBC WITH DIFFE RENTI AL/PL ATELE T monocytes(ab solute) 0.3 x10e3 /uL 0.1-0. 9 normal Not Available [facility] ([facility]) [address] [facility], [place], [address], 06/21/2025 08:10:22 06/20/20 25 06/21/2025 CBC WITH DIFFE RENTI AL/PL ATELE T eos (absolute) 0.1 x10e3 /uL 0.0-0. 4 normal Not Available [facility] ([facility]) [address] [facility], [place], [address], 06/21/2025 08:10:22 06/20/20 25 06/21/2025 CBC WITH DIFFE RENTI AL/PL ATELE T baso (absolute) 0.0 x10e3 /uL 0.0-0. 2 normal Not Available [facility] ([facility]) [address] [facility], [place], [address], 06/21/2025 08:10:22 06/20/20 25 06/21/2025 CBC WITH DIFFE RENTI AL/PL ATELE T immature granulocytes 0 % not estab. Not Available [facility] ([facility]) [address] [facility], [place], [address], 06/21/2025 08:10:22 06/20/20 25 06/21/2025 CBC WITH DIFFE RENTI AL/PL ATELE T immature grans (abs) 0.0 x10e3 /uL 0.0-0. 1 Not Available [facility] ([facility]) [address] [place], [address], 06/21/2025 08:10:22 06/20/20 25 06/21/2025 CBC WITH DIFFE RENTI AL/PL ATELE T NRBC VICE PRESIDENT OF SOFTWARE DEVELOPMENT Not Available [facility] ([facility]) [address] [place], [address], 06/21/2025 08:10:22 06/20/20 25 06/21/2025 CBC WITH DIFFE RENTI AL/PL ATELE T hematology comments: VICE PRESIDENT OF SOFTWARE DEVELOPMENT Not Available [facility] ([facility]) [address] [facility], [place], [address], 06/21/2025 08:10:22 08/01/20 25 08/01/2025 drug scree n, urine AMP negati ve Not Available [address], [address], 08/01/2025 09:30:23 08/01/2008/01/2025 drug scree n, urine BAR negati ve Not Available [address], [address], 08/01/2025 09:30:23 08/01/2008/01/2025 drug scree n, urine BUP negati ve Not Available [address], [address], 08/01/2025 09:30:23 08/01/20 25 08/01/2025 drug scree n, urine BZO negati ve Not Available [address], [address], 08/01/2025 09:30:23 08/01/20 25 08/01/2025 drug scree n, urine LADAN negati ve Not Available [address], [address], 08/01/2025 09:30:23 08/01/20 25 08/01/2025 drug scree n, urine FTY negati ve Not Available [address], [address], 08/01/2025 09:30:23 08/01/20 25 08/01/2025 drug scree n, urine MDMA negati ve Not Available [address], [address], 08/01/2025 09:30:23 08/01/20 25 08/01/2025 drug scree n, urine MET negati ve Not Available [address], [address], 08/01/2025 09:30:23 08/01/20 25 08/01/2025 drug scree n, urine MOP negati ve Not Available [address], [address], 08/01/2025 09:30:23 08/01/20 25 08/01/2025 drug scree n, urine MTD negati ve Not Available [address], [address], 08/01/2025 09:30:23 08/01/2008/01/2025 drug scree n, urine OXY negati ve Not Available [address], [address], 08/01/2025 09:30:23 08/01/20 25 08/01/2025 drug scree n, urine PCP negati ve Not Available [address], [address], 08/01/2025 09:30:23 08/01/2008/01/2025 drug scree n, urine TCA negati ve Not Available [address], [address], 08/01/2025 09:30:23 08/01/20 25 08/01/2025 drug scree n, urine THC negati ve Not Available [facility] [address] [place] [facility], [place], [address], 08/01/2025 09:30:23 08/01/2008/01/2025 MRI, lumba r spine , w/o contr ast No observ [facility]ion [facility] ed[facility] [address], [place], [address], 08/05/2025 14:59:05 08/01/2008/01/2025 MRI, thora cic spine , w/o contr ast No observ ation record ed. [facility] [address], [place], [address], 08/05/2025 15:40:29 Result Notes None recorded. Problems Name Problem SNOMED Code Status Onset Date Resolution Date Notes Provider Name and Address Organization Details Recorded Time Hyperlipi demia 98312778 Active Maribel Brambilaler null, [place] - [facility] 16:18:08 Mass of left ovary 155943890420 95405 Active Maribel Macario null, [place] - [facility] 16:18:08 Bradycard ia 48568373 Active Maribel Macario null, [place] - [facility] 16:18:08 Fatigue 53479315 Active Maribelspike Sorto null, [place] - [facility] 16:18:09 Hypothyro idism 37835256 Active 2015 Maribel Macario null, [place] - [facility] 16:18:08 Fibromyal lottie 730532015 Active 2015 Maribel Macario null, [place] - [facility] 16:18:08 Colitis 78872127 Active 2015 Maribel Macario null, [place] - [facility] 16:18:09 Chronic back pain 268412927 Active 2015 Maribel Macario null, [place] - [facility] 16:18:08 Pain of hip region 01059181 Active 2015 Maribel Macario null, [place] - [facility] 16:18:08 Pelvic mass 55084087 Active 2017 Maribel Sorto null, [place] - [facility] 16:18:09 Granuloma annulare 98832341 Active 2019 Maribel Sorto null, [place] - [facility] 3 16:18:09 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 Procedures Surgical History Date Name Laterality Status Provider Name and Address Organization Details Recorded Time 024 Date of Last Mammogram completed Smita Boswell [place] - [facility] 08/01/2025 08:47:51 023 Medication Reconcilliation completed Maribel Sorto [place] - [facility] 04/26/2023 16:16:53 021 Date of Last Colonoscopy completed Kay Ulloa RN [facility] [address], [place], [address], [place] - [facility] 02/27/2021 11:38:04 021 Diastolic B/P 80-89 mm Hg completed Mally Garcia [place] - [facility] 12/24/2020 13:04:11 021 Systolic B/P 130-139 mm Hg completed Mally Garcia [place] [facility] 12/24/2020 13:04:05 021 Diastolic B/P 80-89 mm Hg completed Gretchen Chery, [employer] [address], [place], [address], [place] [facility] 11/04/2020 11:37:37 021 Systolic B/P 130-139 mm Hg completed Gretchen Chery, [employer] [address], [place], [address], [place] [facility] 11/04/2020 11:37:32 021 Date of Last Pap Smear completed Gretchen Chery, [employer] [address], [place], [address], [place] [facility] 11/07/2020 08:23:07 020 Systolic [...] 09:15:51 988 Caesarean Section completed Amanda Chavira [place] [facility] 11/04/2020 09:15:38 Tubal Ligation completed Amanda Chavira [place] [facility] 11/04/2020 09:14:53 Dilation and Curettage, sharp completed Smita Abramss [place] [facility] 01/04/2018 12:55:06 Endoscopy completed Smita Stears [place] [facility] 01/04/2018 12:55:21 Bartholin Gland Marsupialization completed Smita Elbert [place] [facility] 01/04/2018 12:55:30 Colonoscopy completed Elena Castro [place] [facility] 01/04/2018 13:56:42 Imaging Results None recorded. Procedure Notes None recorded. Medical Equipment None Reported. Allergies Allergen ID Allergen Name Allergen Category Reaction Reaction Severity Criticality Documentation Date Start Date Code Code System Note Provider Name and Address Organization Details Recorded Time 240402 acetamino phen medicatio n Not available Not available Not available 02/27/20212020 161 RxNorm unkno wn Mally Garcia null, [place] - [facility] 15:57:19 074243 cephalexi n medicatio n rash mild Not available 02/27/20212022 2231 RxNorm Maribel Sorto null, [place] - [facility] 3 16:17:50 104272 oxycodone medicatio n Not available Not available Not available 02/27/20212022 7804 RxNorm Maribel Sorto null, [place] - [facility] 3 16:17:50 073362 hydrocodo ne Not available Not available Not available Not available 04/26/20232022 5489 RxNorm Maribel Sorto null, [place] - [facility] 3 16:17:50 672491 propofol medicatio n Not available Not available Not available 04/26/20232022 8782 RxNorm Maribel Sorto null, [place] - [facility] 3 16:17:50 24811 Keflex medicatio n Not available Not available Not available 08/06/2016200816 7 RxNorm React ion: rash, diarr hea; Not Available [facility] 6 09:12:29 03649 acetamino phen / oxycodone medicatio n Not available Not available Not available 08/06/2016201318 3 RxNorm React ion: incre ase in B/P diffi culty breat elizabeth; Comme nt: OnSet Date: 04/19 00; Not Available [facility] 6 09:31:51 44501 homatropi ne / hydrocodo ne medicatio n respirato ry distress Not available Not available 08/06/20162014 17294 4 RxNorm Not Available [facility] 6 10:03:41 55592 acetamino phen / hydrocodo ne medicatio n respirato ry distress Not available Not available 08/06/20162014 03498 2 RxNorm Not Available [facility] 6 10:03:41 Medications Name Sig Start Date [...] completed Not Available Not Available Not Available [facility] Thyroid 60 mg tablet TAKE ONE (1) TABLET BY ORAL ROUTE DAILY FOR 30 DAYS 02/01 completed Not Available Not Available Not Available levothyro xine 137 mcg tablet 0.137 mg by oral route. 02/23 completed Not Available Not Available Not Available [facility] Thyroid 90 mg tablet TAKE ONE (1) [...] Not Available Not Available No t Available [facility] Thyroid 120 mg tablet TAKE ONE (1) [...] mg tablet 50 mg by oral route. 04/16/ 2018 04/26 /2021 completed Not Available Not Available Not Available Cytomel 5 mcg tablet take 2 tablets (10 mcg) by oral route once daily for 30 days 09/17 completed Cytomel 5 mcg oral tablet;P rescribe Status: Prescrib ed on: 06/12/20 14 4:44PM;D iscontin ued Status: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
--- OUTSIDE RECORDS SUMMARY | 2025-08-15 15:30 | XMS_ITS | Continuity of Care Document ---
Author Organization [facility] Address [address] [place] [address] Care Team Providers Care Medical Affairs Leader Name Role Phone THAIS MIGUEL Primary Care Provider ANTOINETTE HALL Referring Provider [phone] TAMERA DUARTE Referring Provider [phone] Assessment Encounter Date Assessment Date Assessment LastModified [...] None recorded. Lab drug screen, urine 2024 [facility], [address] [place] [address], [address], 09:42:12 Referral None recorded. Procedures None recorded. Surgeries None recorded. Imaging None recorded. Medication Orders phentermine 37.5 mg tablet 2024 [facility], [address] [place] [address], [place], [address], 09:30:52 Wegovy 0.5 mg/0.5 mL subcutaneou s pen injector 2024 [facility] [address] [place] [address], [place], [address], 09:30:51 Patient TargetsNo targets recorded. Patient Instructions Encounter Date Encounter Id Patient Instructions Last Modified By Organization Details Last Modified Time 08/01/2025 [id number] Treament Plan: Patient will start medication as directed. Patient will continue exercise, watch calorie intake, and follow up for weight check in 1 month. [email or web address] Not available 08/01/2025 08:46:18 Reason for Referral None Reported. Results Created Date Observation Date Name Description Value Unit Range Abnormal Flag Note LastModifiedBy Organization Detail LastModifiedTime 08/01/2008/01/2025 drug scree n, urine AMP negati ve Not Available [address], [address], 08/01/2025 09:30:23 08/01/2008/01/2025 drug scree n, urine BAR negati ve Not Available [address], [address], 08/01/2025 09:30:23 08/01/2008/01/2025 drug scree n, urine BUP negati ve Not Available [address], [address], 08/01/2025 09:30:23 08/01/2008/01/2025 drug scree n, urine BZO negati ve Not Available [address], [address], 08/01/2025 09:30:23 08/01/2008/01/2025 drug scree n, urine LADAN negati ve Not Available [address], [address], 08/01/2025 09:30:23 08/01/2008/01/2025 drug scree n, urine FTY negati ve Not Available [address], [address], 08/01/2025 09:30:23 08/01/20 25 08/01/2025 drug scree n, urine MDMA negati ve Not Available [address], [address], 08/01/2025 09:30:23 08/01/20 25 08/01/2025 drug scree n, urine MET negati ve Not Available [address], [address], 08/01/2025 09:30:23 08/01/20 25 08/01/2025 drug scree n, urine MOP negati ve Not Available [address], [address], 08/01/2025 09:30:23 08/01/20 25 08/01/2025 drug scree n, urine MTD negati ve Not Available [address], [address], 08/01/2025 09:30:23 08/01/20 25 08/01/2025 drug scree n, urine OXY negati ve Not Available [address], [address], 08/01/2025 09:30:23 08/01/20 25 08/01/2025 drug scree n, urine PCP negati ve Not Available [address], [address], 08/01/2025 09:30:23 08/01/20 25 08/01/2025 drug scree n, urine TCA negati ve Not Available [address], [place], [address], 08/01/2025 09:30:23 08/01/2008/01/2025 drug scree n, urine THC negati ve Not Available [address], [place], [address], 08/01/2025 09:30:23 08/01/2008/01/2025 MRI, lumba r spine , w/o contr ast No observ ation [facility] ed[facility] [address], [place], [address], 08/05/2025 14:59:05 08/01/2008/01/2025 MRI, thora cic spine , w/o contr ast No observ ation record ed. [facility] [address], [place], [address], 08/05/2025 15:40:29 Result Notes None recorded. Problems Name Problem SNOMED Code Status Onset Date Resolution Date Notes Provider Name and Address Organization Details Recorded Time Hyperlipi demia 12680493 Active Maribel Macario null, [place] - [facility] 3 16:18:08 Mass of left ovary 303074465166 48508 Active Maribel Mac[place] null, [place] - [facility] 3 16:18:08 Bradycard ia 96527923 Active Maribel Mac[place], [place] - [facility] 3 16:18:08 Fatigue 99533085 Active Maribel Mac[place], [place] - [facility] 3 16:18:09 Hypothyro idism 72881115 Active 2015 Maribel Macario null, [place] - [facility] 3 16:18:08 Fibromyal lottie 381413751 Active 2015 Maribel Macario [place] - [facility] 3 16:18:08 Colitis 18677150 Active 2015 Maribel Macario [place] - [facility] 3 16:18:09 Chronic back pain 242303437 Active 2015 Maribel monae, [place] - [facility] 3 16:18:08 Pain of hip region 91079699 Active 2015 Maribel monae, [place] - [facility] 3 16:18:08 Pelvic mass 04848318 Active 2017 Maribel monae, [place] - [facility] 3 16:18:09 Granuloma annulare 89250292 Active 2019 Maribel monae, [place] - [facility] 3 16:18:09 Herpes simplex 53095929 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 per culture [place] - [facility] 3 16:18:09 Acquired hypothyro idism 771142023 Active 2020 [place] - [facility] 3 16:18:08 Vitamin D deficienc y 21321327 Active 2020 [place] - [facility] 3 16:18:08 Mixed hyperlipi demia 491229187 Active 2020 [place] - [facility] 3 16:18:08 Gastroeso phageal reflux disease without esophagit is 400806392 Active 2020 [place] - [facility] 3 16:18:08 History of bariatric surgical procedure 373615945 Active 2022 [place] - [facility] 3 16:18:09 Problem Notes None recorded. Procedures Surgical History Date Name Laterality Status Provider Name and Address Organization Details Recorded Time 024 Date of Last Mammogram completed Smita Boswell [place] - [facility] 08/01/2025 08:47:51 023 Medication Reconcilliation completed Maribel Sorto [place] - [facility] 04/26/2023 16:16:53 021 Date of Last Colonoscopy completed Kay Ulloa RN [address] [place] [address], [place], [address] [place] - [facility] 02/27/2021 11:38:04 021 Diastolic B/P 80-89 mm Hg completed Mally Lopezyles [place] - [facility] 12/24/2020 13:04:11 021 Systolic B/P 130-139 mm Hg completed aMlly Lopezyles [place] - [facility] 12/24/2020 13:04:05 021 Diastolic B/P 80-89 mm Hg completed Gretchen Chery, [employer] [address], [place], [address], [place] - [facility] 11/04/2020 11:37:37 021 Systolic B/P 130-139 mm Hg completed Gretchen Nguyenmond, [employer]ER [address], [place], [address], [place] [facility] 11/04/2020 11:37:32 021 Date of Last Pap Smear completed Gretchen Chery, [employer] [address], [place], [address], [place] [facility] 11/07/2020 08:23:07 020 Systolic [...] 09:14:53 Dilation and Curettage, sharp completed Smita Stears [place] - [facility] 01/04/2018 12:55:06 Endoscopy completed Smita Stears [place] - [facility] 01/04/2018 12:55:21 Bartholin Gland Marsupialization completed Smita Stears [place] - [facility] 01/04/2018 12:55:30 Colonoscopy completed Elena Castro [place] - [facility] 01/04/2018 13:56:42 Imaging Results None recorded. Procedure Notes None recorded. Medical Equipment None Reported. Allergies Allergen ID Allergen Name Allergen Category Reaction Reaction Severity Criticality Documentation Date Start Date Code Code System Note Provider Name and Address Organization Details Recorded Time 422130 acetamino phen medicatio n Not available Not available Not available 02/27/20212020 161 RxNorm unkno wn Mally Garcia null, [place] - [facility] 1 15:57:19 680788 cephalexi n medicatio n rash mild Not available 02/27/20212022 2231 RxNorm Maribel Sorto null, [place] - [facility] 3 16:17:50 040157 oxycodone medicatio n Not available Not available Not available 02/27/20212022 7804 RxNorm Maribel Sorto null, [place] - [facility] 3 16:17:50 149285 hydrocodo ne Not available Not available Not available Not available 04/26/20232022 5489 RxNorm Maribel Sorto null, [place] - [facility] 3 16:17:50 431565 propofol medicatio n Not available Not available Not available 04/26/20232022 8782 RxNorm Maribel Sorto null, [place] - [facility] 3 16:17:50 61779 Keflex medicatio n Not available Not available Not available 08/06/2016200816 7 RxNorm React ion: rash, diarr hea; Not Available [facility] 6 09:12:29 28331 acetamino phen / oxycodone medicatio n Not available Not available Not available 08/06/2016201318 3 RxNorm React ion: incre ase in B/P diffi culty veronique johnson; Comme nt: OnSet Date: 04/19 00; Not Available [facility] 6 09:31:51 31110 homatropi ne / hydrocodo ne medicatio n respirato ry distress Not available Not available 08/06/20162014 66509 4 RxNorm Not Available [facility] 6 10:03:41 55659 acetamino phen / hydrocodo ne medicatio n respirato ry distress Not available Not available 08/06/20162014 61529 2 RxNorm Not Available [facility] 6 10:03:41 Medications Name Sig Start [...] completed Not Available Not Available Not Available [facility] Thyroid 60 mg tablet TAKE ONE (1) TABLET BY ORAL ROUTE DAILY FOR 30 DAYS 02/01 completed Not Available Not Available Not Available levothyro xine 137 mcg tablet 0.137 mg by oral route. 02/23 completed Not Available Not Available Not Available [facility] Thyroid 90 mg tablet TAKE ONE (1) [...] ROUTE ONCE DAILY FOR FOUR (4) DAYS 02/09 /2024 completed Not Available Not Available Not [...] Not Available Not Available No t Available Marshall Thyroid 120 mg tablet TAKE ONE (1) [...] nued on: 09/17/20 14 12:26PM; User: [email or web address]; EstGrant Adairi on: 12/09/19 15;Pharm Laly ied: 06/12/20 14 [...] ser: [email or web address]; Est. Completi on: 11/23/19 16;Pharm [email or web address] ied: [...] Available lotepredn ol etabonate 0.5 % [facility] completed Not Available Not Available Not [...] by oral route once daily 08/14 completed Dung in XL 300 mg oral tablet extended release 24 hr;comme nt: pt couldn't afford it;Presc ribe Status: Prescrib ed on: 08/01/20 13 2:36PM;D iscontin ued Status: Disconti nued on: 08/14/20 13 5:38PM;U ser: [email or web address]; Est. Completi on: 01/29/20 14;Indic ation: Major Depressi ve Disorder - (296);Cocor Dev fied: 08/01/20 13 2:36PM Not Available [...] 15;Indic ation: Fibromya lgia - (13.7291 02);Phar [email or web address] fied: 06/12/20 14 4:44PM Not Available Not [...] by subcutan eous route for 28 days. 11/17 /2022 completed Not Available Not Available Not Available [...] 5 165.1 cm 18 /min 33.4 kg/m2 79736.0 7 g 68 /min 98 % 98 % 98 [degF] 118/78 mm[Hg] Smita Stears [place] - [facility] 5 08:53:14 Social History Question Answer Notes LastModified by Organizat ion Details LastModified Time Tobacco Smoking Status Former Smoker Not Available [facility] 08/15/2020 03:17:09 Able To Swim? Yes Information not available 09/02/2016 Do You Have An Advance Directive? No [id number] Information n ot available 08/15/2020 Do You Wear A Helmet When Biking? No [id number] Information not available 08/15/2020 Are You Blind Or Do You Have Difficulty Seeing? No [id number] Information n ot available 08/15/2020 Is Blood Transfusion Acceptable In An Emergency? Yes [id number] Information not available 08/15/2020 What Is Your Level Of Caffeine Consumption? Moderate [id number] Information not available 08/15/2020 How Much Tobacco Do You Chew? None [id number] Information not available 08/15/2020 In The 14 [...] Do You Have Serious Difficulty Hearing? No [id number] Information not available 08/15/2020 What Type Of Diet Are You Following? REGULAR [id number] Information n ot available 08/15/2020 Which Illicit Or Recreational Drugs Have You Used? None [id number] Information not available 08/15/2020 Have You Processed [...] Or The Highest Degree You Have Received? [id number] Information not available 11/04/2020 How Many Days Of Moderate To Strenuous Exercise, Like A Brisk Walk, Did You Do In The Last 7 Days? 0 Information not available 11/04/2020 On Those Days That You Engage In Moderate To Strenuous Exercise, How Many Minutes, On Average, Do You Exercise? 0 Information not available 11/04/2020 Swimming/diving Yes [email or web address] Informati on not available 12/09/2016 Have There Been Any Changes To Your Family Or Social Situation? No Information no t available 12/09/2023 How Hard Is It For You To Pay For The Very Basics Like Food, Housing, Medical Care, And Heating? [id number] [email or web address] Information not available 11/04/2020 What Is The Fluoride Status Of Your Home? Unknown Information not available 12/09/2023 When Did You Quit Smoking? 1-5yearssince lastcigarette [id number] Information not available 08/15/2020 Hard Of Hearing [...] Do You Have A Medical Power Of Basting Puller? No Information not available 12/09/2023 What Was The Date Of Your Most Recent Tobacco Screening? 06/20/2025 Information not available 06/20/2025 How Many Children Do You Have? 2 [id number] Information not available 08/15/2020 Performs Monthly Self-breast Exam? No [email or web address] Information no t available 01/04/2018 Do You Use Protection During Sex? No [id number] Information not available 08/15/2020 What Is Your Relationship Status? [id number] Information not available 08/15/2020 Seat Belts Used Routinely Yes Information not available 09/02/2016 Are You Sexually Active? Yes [id number] Information not available 08/15/2020 Smoke Alarm In Home Yes Information not available 09/02/2016 Do You Have Smoke And Carbon Monoxide Detectors In Your Home? Yes Information not available 12/09/2023 At What Age Did You Start Smoking Tobacco? 23 [id number] Information not available 08/15/2020 Are You Passively Exposed To Smoke? No Information no t available 09/02/2016 How Much Tobacco Do You Smoke? 0.5 PPD [id number] Information not available 08/15/2020 General Stress Level Low Information not available 09/02/2016 Do You Use Sunscreen Routinely? Yes [id number] Information not available 08/15/2020 Has Tobacco Cessation Counseling Been Provided? No [id number] Information not available 08/15/2020 How Many Years Have You Smoked Tobacco? 25 [id number] Information not available 08/15/2020 Do You Have Difficulty Walking Or Climbing Stairs? Yes [id number] Information not available 08/15/2020 Sex: Female Functional Status Question Answer Note LastModified by Organizat ion Details LastModified Time Do you use any illicit or recreational drugs? No Information not available 12/09/2023 What is your level of alcohol consumption? None [id number] Information not available 08/15/2020 Do you or have you ever used smokeless tobacco? Never used smokeless tobacco [id number] Information not available 08/15/2020 Are you currently employed? Yes [id number] Information not available 08/15/2020 Do you have transportation difficulties? No Information not available 12/09/2023 Are you able to walk independently without assistance or assistive devices? YESWOREST [id number] Information not available 08/15/2020 Do you have difficulty doing errands alone? No [id number] Information not available 08/15/2020 Are you able to care for yourself independently? Yes [id number] Information not available 08/15/2020 What is your occupation? [employer] Information not available 09/02/2016 Do you have difficulty dressing, bathing, grooming, or toileting? No [id number] Information not available 08/15/2020 Do you or have you ever used e-cigarettes or vape? Never used electronic cigarettes [id number] Information not available 08/15/2020 What is your exercise level? Occasional [id number] Information not available 08/15/2020 Mental Status Question Answer Note LastModified by Organizat ion Details LastModified Time Do you feel stressed (tense, restless, nervous, or anxious, or unable to sleep at night)? BS6391-7 [email or web address] Information not available 11/04/2020 Do you have difficulty concentrating, remembering or making decisions? No [id number] Information no t available 08/15/2020 Family History Relationship Description Onset Age of this Age Resolved Age Notes LastModified by Organization Details LastModified Time Father Hypertensive disorder Not available 2015 16:23:44 Father Hypercholest erolemia Not available 2015 16:24:17 Father Heart disease [email or web address] Not available 2020 09:13:48 Maternal Grandmother Hypertensive disorder Not available 2015 16:23:56 Maternal Grandmother Cerebrovascu lar accident [email or web address] Not available 04/2018 13:54:40 Mother Pulmonary emphysema Not available 2015 16:24:31 Paternal Grandfather Cerebrovascu lar accident Not available 12/2015 16:24:46 Paternal Grandmother Myocardial infarction Not available 09/02 16:25:17 Paternal Uncle Malignant neoplasm of urinary bladder [email or web address] Not available 2017 13:55:02 Paternal Uncle Malignant neoplasm of pharynx [email or web address] Not available 2017 13:55:16 Medical History Condition [...] colitis N Cerebrovascular Disease N Depression N Guillain-[place] N Sleep Apnea N Aneurysm N Bronchitis [...] Details Recorded Time Pneumococcal conjugate PCV20, polysaccharide FBO990 conjugate, adjuvant, PF 025 cancelled patient objection Bindu Pozo APRN [address], [address] [place] [address] [facility] 08/01/2025 09:31:21 zoster recombinant 025 cancelled patient objection Bindu Pozo APRN [address], [address] [place] [address] [facility] 08/01/2025 09:31:21 Influenza, split virus, trivalent, PF 025 cancelled patient objection Bindu Pozo APRN [address], [address] [place] [address] 08/01/2025 09:31:21 COVID-19, mRNA, LNP-S, PF, 100 mcg/0.5mL dose or 50 mcg/0.25mL dose 022 completed Not Available [facility] 04/20/2023 14:12:37 Td (adult), 2 Lf tetanus toxoid, preservative free, adsorbed 998 completed Not Available [facility] 04/20/2023 14:12:37 Tdap 016 completed Not Available [facility] 04/20/2023 14:12:37 COVID-19, mRNA, LNP-S, PF, 100 mcg/0.5mL dose or 50 mcg/0.25mL dose 021 completed Not Available [facility] 04/20/2023 14:12:37 COVID-19, mRNA, LNP-S, PF, 100 mcg/0.5mL dose or 50 mcg/0.25mL dose 021 completed Not Available [facility] 04/20/2023 14:12:37 COVID-19, mRNA, LNP-S, PF, 100 mcg/0.5mL dose or 50 mcg/0.25mL dose 021 completed Not Available [facility] 04/20/2023 14:12:37 Influenza, split virus, quadrivalent, PF 019 cancelled patient objection Not Available [facility] 11/17/2019 03:56:06 Past Encounters Encounter ID Performer Location Encounter Start Date Encounter Closed Date Diagnosis/Indication Diagnosis SNOMED-CT Code Diagnosis ICD10 Code Diagnosis IMO Codes Diagnosis Note [id number] Bindu Pozo [address] [address] 07/05/2025 14:16:33 07/05/2025 15:19:31 Low back pain 391468809 M54.50 899356 sent to ed for eval Neck pain 68564493 M54.2 8363156 [id number] Bindu Pozo [address] [address] 07/11/2025 08:52:28 07/11/2025 10:38:36 Low back pain 812583635 M54.50 019759 obtain medical records from ed visitmriif symptoms worsen return [id number] Bindu Pozo [address] [place] [address] 08/01/2025 08:41:50 08/01/2025 09:32:42 Weight management program 184645432 Z76.89 0585295086 Pneumococc al vaccination declined 924217319 Z28.[address] vaccination declined 8443593734 102 Z28.21 2742460913 Vaccination declined 457 2459906 Z28.21 Seasonal flu vaccine offered and declined Influenza vaccine needed 6438584727 106 Z23 HIV screen ing declined 1900944378 05562 Z53.20 4802352545 Obese class I 7835550187 10884 E66.724 9592590 discussed low calorie/fa t/carb diet- keeping diet logexercis e 30 mins a day for 3 days - even if walking or sitting Long-term current use of drug therapy 402527514 Z79.899 95197330 Health Concerns Section Related Observation LastModified by Organization Detai ls LastModified Time None Recorded Concern Status LastModified by Organization Details LastModified Time None Recorded Payers Encounter Date Sequence Insurance Name Policy Number Policy Brock Covered Member ID Brock Member ID Guarantor Name 08/01/2025 1 [place] [id number] Nelia Silva [id number] Nelia Silva Notes Date Note Type [...] gaining wt instead of losing. Bindu Pozo, NEEDLE [employer] [address], [place], [address], [place] - [facility] 08/01/2025 09:34:09 OBGyn Episode No OBEpisode recorded.
--- OUTSIDE RECORDS SUMMARY | 2025-08-15 15:30 | XMS_ITS | Continuity of Care Document ---
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 Plan of Treatment Reminders Order Date Submit Date Provider Last Modified By Organization Details Last Modified Time Details Appointments None record ed. Lab None record ed. Referral None record ed. Procedures None record ed. Surgeries None record ed. Imaging None record ed. Medication Orders None record ed. Patient TargetsNo targets recorded. Patient InstructionsNo instructions recorded. Reason for Referral None Reported. Results Created Date Observation Date Name Description Value Unit Range Abnormal Flag Note LastModifiedBy Organization Detail LastModifiedTime 06/20/20 25 06/21/2025 CBC WITH DIFFE RENTI AL/PL ATELE T WBC 5.3 x10e3 /uL 3.4-10 .8 normal Not Available [facility] ([facility]) [address] [place], [address], 06/21/2025 08:10:22 06/20/20 25 06/21/2025 CBC WITH DIFFE RENTI AL/PL ATELE T RBC 5.13 x10e6 /uL 3.77-5 .28 normal Not Available [facility] ([facility]) [address] [place], [address], 06/21/2025 08:10:22 06/20/20 25 06/21/2025 CBC WITH DIFFE RENTI AL/PL ATELE T hemoglobin 15.1 g/dL 11.1-1 5.9 normal Not Available [facility] ([facility]) [address] [place], [address], 06/21/2025 08:10:22 06/20/20 25 06/21/2025 CBC WITH DIFFE RENTI AL/PL ATELE T hematocrit 47.0 % 34.0-4 6.6 above high normal Not Available [facility] ([facility]) [address] [place], [address], 06/21/2025 08:10:22 06/20/20 25 06/21/2025 CBC WITH DIFFE RENTI AL/PL ATELE T MCV 92 fL 79-97 normal Not Available [facility] ([facility]) [address] [place], [address], 06/21/2025 08:10:22 06/20/20 25 06/21/2025 CBC WITH DIFFE RENTI AL/PL ATELE T MCH 29.4 pg 26.6-3 3.0 normal Not Available [facility] ([facility]) [address] [place], [address], 06/21/2025 08:10:22 06/20/20 25 06/21/2025 CBC WITH DIFFE RENTI AL/PL ATELE T MCHC 32.1 g/dL 31.5-3 5.7 normal Not Available [facility] ([facility]) [address] [place], [address], 06/21/2025 08:10:22 06/20/20 25 06/21/2025 CBC WITH DIFFE RENTI AL/PL ATELE T RDW 13.9 % 11.7-1 5.4 Not Available [facility] ([facility]) [address] [place], [address], 06/21/2025 08:10:22 06/20/20 25 06/21/2025 CBC WITH DIFFE RENTI AL/PL ATELE T platelets 209 x10e3 /uL 150-45 0 normal Not Available [facility] ([facility]) [address] [facility], [place], [address], 06/21/2025 08:10:22 06/20/20 25 06/21/2025 CBC WITH DIFFE RENTI AL/PL ATELE T neutrophils 78 % not estab. normal Not Available [facility] ([facility]) [address] [facility], [place], [address], 06/21/2025 08:10:22 06/20/20 25 06/21/2025 CBC WITH DIFFE RENTI AL/PL ATELE T lymphs 13 % not estab. normal Not Available [facility] ([facility]) [address] [facility], [place], [address], 06/21/2025 08:10:22 06/20/20 25 06/21/2025 CBC WITH DIFFE RENTI AL/PL ATELE T monocytes 6 % not estab. normal Not Available [facility] ([facility]) [address] [facility], [place], [address], 06/21/2025 08:10:22 06/20/20 25 06/21/2025 CBC WITH DIFFE RENTI AL/PL ATELE T eos 2 % not estab. normal Not Available [facility] ([facility]) [address] [facility], [place], [address], 06/21/2025 08:10:22 06/20/20 25 06/21/2025 CBC WITH DIFFE RENTI AL/PL ATELE T basos 1 % not estab. normal Not Available [facility] ([facility]) [address] [facility], [place], [address], 06/21/2025 08:10:22 06/20/20 25 06/21/2025 CBC WITH DIFFE RENTI AL/PL ATELE T immature cells GENETIC COUNSELLOR Not Available [facility] ([facility]) [address] [facility], [place], [address], 06/21/2025 08:10:22 06/20/20 25 06/21/2025 CBC WITH DIFFE RENTI AL/PL ATELE T neutrophils (absolute) 4.2 x10e3 /uL 1.4-7. 0 normal Not Available [facility] ([facility]) [address] [place], [address], 06/21/2025 08:10:22 06/20/20 25 06/21/2025 CBC WITH DIFFE RENTI AL/PL ATELE T lymphs (absolute) 0.7 x10e3 /uL 0.7-3. 1 normal Not Available [facility] ([facility]) [address] [facility], [place], [address], 06/21/2025 08:10:22 06/20/20 25 06/21/2025 CBC WITH DIFFE RENTI AL/PL ATELE T monocytes(ab solute) 0.3 x10e3 /uL 0.1-0. 9 normal Not Available [facility] ([facility]) [address] [place], [address], 06/21/2025 08:10:22 06/20/20 25 06/21/2025 CBC WITH DIFFE RENTI AL/PL ATELE T eos (absolute) 0.1 x10e3 /uL 0.0-0. 4 normal Not Available [facility] ([facility]) [address] [place], [address], 06/21/2025 08:10:22 06/20/20 25 06/21/2025 CBC WITH DIFFE RENTI AL/PL ATELE T baso (absolute) 0.0 x10e3 /uL 0.0-0. 2 normal Not Available [facility] ([facility]) [address] [place], [address], 06/21/2025 08:10:22 06/20/20 25 06/21/2025 CBC WITH DIFFE RENTI AL/PL ATELE T immature granulocytes 0 % not estab. Not Available [facility] ([facility]) [address] [facility], [place], [address], 06/21/2025 08:10:22 06/20/20 25 06/21/2025 CBC WITH DIFFE RENTI AL/PL ATELE T immature grans (abs) 0.0 x10e3 /uL 0.0-0. 1 Not Available [facility] ([facility]) [address] [facility], [place], [address], 06/21/2025 08:10:22 06/20/20 25 06/21/2025 CBC WITH DIFFE RENTI AL/PL ATELE T NRBC GENETIC COUNSELLOR Not Available [facility] ([facility]) [address] [facility], [place], [address], 06/21/2025 08:10:22 06/20/20 25 06/21/2025 CBC WITH DIFFE RENTI AL/PL ATELE T hematology comments: GENETIC COUNSELLOR Not Available [facility] ([facility]) [address] [facility], [place], [address], 06/21/2025 08:10:22 08/01/20 25 08/01/2025 MRI, lumba r spine , w/o contr ast No observ ation record ed. [facility] [address], [place], [place], [address], 08/05/2025 14:59:05 08/01/20 25 08/01/2025 MRI, thora cic spine , w/o contr ast No observ ation record ed. [facility] [address], [place], [place], [address], 08/05/2025 15:40:29 Result Notes None recorded. Problems Name Problem SNOMED Code Status Onset Date Resolution Date Notes Provider Name and Address Organization Details Recorded Time [facility] johntx [id number] Active Maribel Macario null, [place] - [facility] 3 16:18:08 Mass of left ovary [id number] 93341 Active Maribel Sorto null, [place] - [facility] 3 16:18:08 Bradycard ia 38661038 Active Maribel Sorto [place], [place] - [facility] 3 16:18:08 Fatigue 54056370 Active Maribel Sorto [place], [place] - [facility] 3 16:18:09 Hypothyro idism 84578645 Active 2015 Maribel Sorto [place] - [facility] 3 16:18:08 Fibromyal lottie 025703609 Active 2015 Maribel Sorto [place] - [facility] 3 16:18:08 Colitis 60144097 Active 2015 Maribel Sorto [place] - [facility] 3 16:18:09 Chronic back pain 534463035 Active 2015 Maribel Sorto [place], [place] - [facility] 3 16:18:08 Pain of hip region 28719830 Active 2015 Maribel Sorto [place], [place] - [facility] 3 16:18:08 Pelvic mass 88663010 Active 2017 Maribel Sorto [place], [place] - [facility] 3 16:18:09 Granuloma annulare 40310787 Active 2019 Maribel Sorto [place] - [facility] 3 16:18:09 Herpes simplex 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 per culture Maribel Sorto [place] - [facility] 3 16:18:09 Acquired hypothyro idism 240942158 Active 2020 Maribel Sorto [place] [facility] 3 16:18:08 Vitamin D deficienc y 10379215 Active 2020 Maribel Sorto [place] [facility] 3 16:18:08 Mixed hyperlipi demia 323920999 Active 2020 Maribel Sorto [place] - [facility] 3 16:18:08 Gastroeso phageal reflux disease without esophagit is 430361365 Active 2020 Maribel Macario dov, [place] - [facility] 3 16:18:08 History of bariatric surgical procedure 310222369 Active 2022 Maribel Macario [place] - [facility] 3 16:18:09 Problem Notes None recorded. Procedures Surgical History Date Name Laterality Status Provider Name and Address Organization Details Recorded Time 024 Date of Last Mammogram completed Smita Boswell [place] - [facility] 08/01/2025 08:47:51 023 Medication Reconcilliation completed Maribel Sorto [place] - [facility] 04/26/2023 16:16:53 021 Date of Last Colonoscopy completed Kay Ulloa RN [address], [place], [address], [facility] - [facility] 02/27/2021 11:38:04 021 Diastolic B/P 80-89 mm Hg completed Mally Garcia [place] - [facility] 12/24/2020 13:04:11 021 Systolic B/P 130-139 mm Hg completed Mally Garcia [place] - [facility] 12/24/2020 13:04:05 021 Diastolic B/P 80-89 mm Hg completed Gretchen Chery APRN [address], [place], [address], [facility] - [facility] 11/04/2020 11:37:37 021 Systolic B/P 130-139 mm Hg completed Gretchen Chery APRN [address], [place], [address], [place] - [facility] 11/04/2020 11:37:32 021 Date of Last Pap Smear completed Gretchen Chery APRN [address], [place], [address], [place] - [facility] 11/07/2020 08:23:07 020 Systolic B/P less than 130 mm Hg completed Mally Garcia [place] - [facility] 09/03/2020 17:53:00 020 Diastolic B/P less than 80 mm Hg completed Mally Garcia [place] - [facility] 09/03/2020 17:52:56 020 Systolic B/P [...] 11/04/2020 09:15:38 Tubal Ligation completed Amanda Chavira [place] - [facility] 11/04/2020 09:14:53 Dilation and Curettage, sharp completed Smita Alizaalmas [place] - [facility] 01/04/2018 12:55:06 Endoscopy completed Smita Alizaalmas [place] - [facility] 01/04/2018 12:55:21 Bartholin Gland Marsupialization completed Smitasimone Boswell [place] - [facility] 01/04/2018 12:55:30 Colonoscopy completed Elena Castro [place] - [facility] 01/04/2018 13:56:42 Imaging Results None recorded. Procedure Notes None recorded. Medical Equipment None Reported. Allergies Allergen ID Allergen Name Allergen Category Reaction Reaction Severity Criticality Documentation Date Start Date Code Code System Note Provider Name and Address Organization Details Recorded Time 882336 acetamino phen medicatio n Not available Not available Not available 02/27/20212020 161 RxNorm unkno wn Mally Garcia null, [place] - [facility] 15:57:19 519117 cephalexi n medicatio n rash mild Not available 02/27/20212022 2231 RxNorm Maribel Sorto null, [place] - [facility] 3 16:17:50 727782 oxycodone medicatio n Not available Not available Not available 02/27/20212022 7804 RxNorm Maribel Sorto null, [place] - [facility] 3 16:17:50 872640 hydrocodo ne Not available Not available Not available Not available 04/26/20232022 5489 RxNorm Maribel monae, [place] - [facility] 3 16:17:50 911456 propofol medicatio n Not available Not available Not available 04/26/20232022 8782 RxNorm Maribel monae, [place] - [facility] 3 16:17:50 39463 Keflex medicatio n Not available Not available Not available 08/06/2016200816 7 RxNorm React ion: rash, diarr hea; Not Available [facility] 6 09:12:29 78319 acetamino phen / oxycodone medicatio n Not available Not available Not available 08/06/2016201318 3 RxNorm React ion: incre ase in B/P diffi culty breat elizabeth; Comme nt: OnSet Date: 04/19 00; Not Available [facility] 6 09:31:51 22629 homatropi ne / hydrocodo ne medicatio n respirato ry distress Not available Not available 08/06/2016201461 4 RxNorm Not Available [facility] 6 10:03:41 37254 acetamino phen / hydrocodo ne medicatio n respirato ry distress Not available Not available 08/06/20162014 64903 2 RxNorm Not Available [facility] 6 10:03:41 Medications Name Sig [...] completed Not Available Not Available Not Available [facility] Thyroid 60 mg tablet TAKE ONE (1) TABLET BY ORAL ROUTE DAILY FOR 30 DAYS 02/01 completed Not Available Not Available Not Available levothyro xine 137 mcg tablet 0.137 mg by oral route. 02/23 completed Not Available Not Available Not Available [facility] Thyroid 90 mg tablet TAKE ONE (1) [...] Not Available Not Available No t Available [facility] Thyroid 120 mg tablet TAKE ONE (1) [...] User: stroopr; Est. Completi on: 12/09/19 15;Pharm [email or web address] ied: 06/12/20 14 4:44PM Not Available Not Available Not Available amoxicill in 500 mg tablet take 4 tablets (2 gram) by oral route 1 hour prior to procedur e 02/10 completed amoxicil rosio 500 mg oral tablet;P rescribe Status: Prescrib ed on: 12/16/19 16 11:32AM; Disconti nued Status: Disconti nued on: 02/11/20 16 1:02PM;U ser: [email or web address]; Pharmacy Verified : 12/16/19 16 11:32AM Not [...] Disconti nued on: 08/09/20 12 3:41PM;U ser: [email or web address] ;Est. Completi on: 11/14/19 13;Indic ation: Symptoma [...] Updated DateTime 5 165.1 cm 32.9 kg/m2 75324.2 9 g 70 /min 97 % 97 % 18 /min 98 [degF] 138/80 mm[Hg] Smita Stears [place] - [facility] 14:33:54 Social History Question Answer Notes LastModified by Organizat ion Details LastModified Time Tobacco Smoking Status Former Smoker Not Available [facility] 08/15/2020 03:17:09 Able To Swim? Yes Information not available 09/02/2016 Do You Have An Advance Directive? No [id number] Information n ot available 08/15/2020 Do You Wear A Helmet When Biking? No [id number] Information not available 08/15/2020 Are You Blind Or Do You Have Difficulty Seeing? No [id number] Information n ot available 08/15/2020 Is Blood Transfusion Acceptable In An Emergency? Yes [id number] Information not available 08/15/2020 What Is Your Level Of Caffeine Consumption? Moderate [id number] Information not available 08/15/2020 How Much Tobacco Do You Chew? None [id number] Information not available 08/15/2020 In The 14 [...] Do You Have Serious Difficulty Hearing? No [id number] Information not available 08/15/2020 What Type Of Diet Are You Following? REGULAR [id number] Information n ot available 08/15/2020 Which Illicit Or Recreational Drugs Have You Used? None [id number] Information not available 08/15/2020 Have You Processed [...] Or The Highest Degree You Have Received? SP01839-0 [email or web address] Information not available 11/04/2020 How Many Days Of Moderate To Strenuous Exercise, Like A Brisk Walk, Did You Do In The Last 7 Days? 0 [email or web address] Information not available 11/04/2020 On Those Days That You Engage In Moderate To Strenuous Exercise, How Many Minutes, On Average, Do You Exercise? 0 [email or web address] Information not available 11/04/2020 Swimming/diving Yes [email or web address] Informati on not available 12/09/2016 Have There Been Any Changes To Your Family Or Social Situation? No Information no t available 12/09/2023 How Hard Is It For You To Pay For The Very Basics Like Food, Housing, Medical Care, And Heating? [id number] Information not available 11/04/2020 What Is The Fluoride Status Of Your Home? Unknown Information not available 12/09/2023 When Did You Quit Smoking? 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 No Information not available 12/09/2023 What Was The Date Of Your Most Recent Tobacco Screening? 06/20/2025 Information not available 06/20/2025 How Many Children Do You Have? 2 [id number] Information not available 08/15/2020 Performs Monthly Self-breast Exam? No [email or web address] Information no t available 01/04/2018 Do You Use Protection During Sex? No [id number] Information not available 08/15/2020 What Is Your Relationship Status? [id number] Information not available 08/15/2020 Seat Belts Used Routinely Yes Information not available 09/02/2016 Are You Sexually Active? Yes [id number] Information not available 08/15/2020 Smoke Alarm In Home Yes Information not available 09/02/2016 Do You Have Smoke And Carbon Monoxide Detectors In Your Home? Yes Information not available 12/09/2023 At What Age Did You Start Smoking Tobacco? 23 [id number] Information not available 08/15/2020 Are You Passively Exposed To Smoke? No Information no t available 09/02/2016 How Much Tobacco Do You Smoke? 0.5 PPD [id number] Information not available 08/15/2020 General Stress Level Low Information not available 09/02/2016 Do You Use Sunscreen Routinely? Yes [id number] Information not available 08/15/2020 Has Tobacco Cessation Counseling Been Provided? No [id number] Information not available 08/15/2020 How Many Years Have You Smoked Tobacco? 25 [id number] Information not available 08/15/2020 Do You Have Difficulty Walking Or Climbing Stairs? Yes [id number] Information not available 08/15/2020 Sex: Female Functional Status Question Answer Note LastModified by [email or web address] ion Details LastModified Time Do you use any illicit or recreational drugs? No Information not available 12/09/2023 What is your level of alcohol consumption? None [id number] Information not available 08/15/2020 Do you or have you ever used smokeless tobacco? Never used smokeless tobacco [id number] Information not available 08/15/2020 Are you currently employed? Yes [id number] Information not available 08/15/2020 Do you have transportation difficulties? No Information not available 12/09/2023 Are you able to walk independently without assistance or assistive devices? YESWOREST [id number] Information not available 08/15/2020 Do you have difficulty doing errands alone? No [id number] Information not available 08/15/2020 Are you able to care for yourself independently? Yes [id number] Information not available 08/15/2020 What is your occupation? [employer] Information not available 09/02/2016 Do you have difficulty dressing, bathing, grooming, or toileting? No [id number] Information not available 08/15/2020 Do you or have you ever used e-cigarettes or vape? Never used electronic cigarettes [id number] Information not available 08/15/2020 What is your exercise level? Occasional [id number] Information not available 08/15/2020 Mental Status Question Answer Note LastModified by Organizat ion Details LastModified Time Do you feel stressed (tense, restless, nervous, or anxious, or unable to sleep at night)? [id number] [email or web address] Information not available 11/04/2020 Do you have difficulty concentrating, remembering or making decisions? No [id number] Information no t available 08/15/2020 Family History Relationship Description Onset Age of this Age Resolved Age Notes LastModified by Organization Details LastModified Time Father Hypertensive disorder Not available 2015 16:23:44 Father Hypercholest erolemia Not available 2015 16:24:17 Father Heart disease Not available 2020 09:13:48 Maternal Grandmother Hypertensive disorder Not available 2015 16:23:56 Maternal Grandmother Cerebrovascu lar accident [email or web address] Not available 04/2018 13:54:40 Mother Pulmonary emphysema Not available 2015 16:24:31 Paternal Grandfather Cerebrovascu lar accident Not available 12/2015 16:24:46 Paternal Grandmother Myocardial infarction Not available 09/02 16:25:17 Paternal Uncle Malignant neoplasm of urinary bladder [email or web address] Not available 2017 13:55:02 Paternal Uncle Malignant neoplasm of pharynx [email or web address] Not available 2017 13:55:16 Medical History Condition [...] colitis N Cerebrovascular Disease N Depression N Guillain-Baring N Sleep Apnea N Aneurysm N Bronchitis [...] Details Recorded Time Pneumococcal conjugate PCV20, polysaccharide RHC831 conjugate, adjuvant, PF 025 cancelled patient objection Bindu Pozo, TECHNICAL STAFF ENGINEER [address], [place], [address], [place] - [facility] 08/01/2025 09:31:21 zoster recombinant 025 cancelled patient objection Bindu Pozo, TECHNICAL STAFF ENGINEER [address], [place], [address], [place] [facility] 08/01/2025 09:31:21 Influenza, split virus, trivalent, PF 025 cancelled patient objection Bindu Pozo, TECHNICAL STAFF ENGINEER [address], [place], [address], [place] [facility] 08/01/2025 09:31:21 COVID-19, mRNA, LNP-S, PF, 100 mcg/0.5mL dose or 50 mcg/0.25mL dose 022 completed Not Available [facility] 04/20/2023 14:12:37 Td (adult), 2 Lf tetanus toxoid, preservative free, adsorbed 998 completed Not Available [facility] 04/20/2023 14:12:37 Tdap 016 completed Not Available [facility] 04/20/2023 14:12:37 COVID-19, mRNA, LNP-S, PF, 100 mcg/0.5mL dose or 50 mcg/0.25mL dose 021 completed Not Available [facility] 04/20/2023 14:12:37 COVID-19, mRNA, LNP-S, PF, 100 mcg/0.5mL dose or 50 mcg/0.25mL dose 021 completed Not Available [facility] 04/20/2023 14:12:37 COVID-19, mRNA, LNP-S, PF, 100 mcg/0.5mL dose or 50 mcg/0.25mL dose 021 completed Not Available [facility] 04/20/2023 14:12:37 Influenza, split virus, quadrivalent, PF 019 cancelled patient objection Not Available [facility] 11/17/2019 03:56:06 Past Encounters Encounter ID Performer Location Encounter Start Date Encounter Closed Date Diagnosis/Indication Diagnosis SNOMED-CT Code Diagnosis ICD10 Code Diagnosis IMO Codes Diagnosis Note [id number] Bindu Pozo APRN [address] [address] 06/20/2025 08:55:18 06/20/2025 09:40:34 History of bariatric surgical procedure 047554601 Z98.84 Full blood count outside reference range 675938998 R79.89 958940 labs [id number] Bindu Pozo APRN [address] [address] 07/05/2025 14:16:33 07/05/2025 15:19:31 Low back pain 497880358 M54.50 [id number] sent to ed for eval Neck pain 35222733 M54.2 [id number] Health Concerns Section Related Observation LastModified by Organization Detai ls LastModified Time None Recorded Concern Status LastModified by Organization Details LastModified Time None Recorded Payers Encounter Date Sequence Insurance Name Policy Number Policy Brock Covered Member ID Brock Member ID Guarantor Name 07/05/2025 [place] [employer] Nelia Silva Neliapatricia Silva Notes Date Note Type Note Provider [...] hospital. Bindu Pozo APRN [address], [place], [address], [place] - [facility] 07/05/2025 15:06:50 OBGyn Episode No OBEpisode recorded.
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
--- OUTSIDE RECORDS SUMMARY | 2025-08-15 15:31 | XMS_ITS | Clinical Summary ---
Author Organization [facility] Address [address] [place] [address] Phone Care Team Providers Care Clinical Courier Name Role Phone Tomy Staley Katya Primary Care Provider [phone] Allergies Active Allergy Reactions Criticality Noted Date [...] patient's age to complete this topic Insurance [facility] PPO [facility] PPO [employer]IDENT GENERIC Care Teams Clinical Courier Relationship Specialty Start Date End Date Tomy Staley [address] [place] [id number] PCP - General Family Medicine 09/17/17
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
== END 2025-08-15 23:59 | disposition home or self-care (01) ==
LOC: RAD 15:27
PROVIDERS: PCP Nurse Practitioner Family; Visit Provider Nurse Practitioner Family
DX: M47.812 Spondylosis without myelopathy or radiculopathy, cervical region (principal); M48.02 Spinal stenosis, cervical region; V89.2XXA Person injured in unspecified motor-vehicle accident, traffic, initial encounter
CPT/HCPCS: 72141